=== PATIENT | male | born 1935 | race Caucasian/White ===

== ENCOUNTER 2017-09-04 15:15 | Outpatient (CLI) | payer MEDICARE, OTHER ==
--- NOTE | 2017-09-04 17:42 | ULT ---
EXAM: LEFT LOWER EXTREMITY VENOUS ULTRASOUND WITH DOPPLER 09/04/17 HISTORY: Left calf edema times one week. Patient fell in June with a cut in his leg. COMPARISON: None. TECHNIQUE: Palencia scale, color flow, doppler imaging with spectral waveform was performed of the left lower extre mity venous system. FINDINGS: There is compressibility, presence of flow and augmentation in the common femoral vein, femoral vein , and popliteal vein. Midline of the medial calf there is a complex fluid echotexture which may repr esent a small hematoma or posttraumatic fluid. Additionally, there is evidence of soft tissue edema. IMPRESSION: 1. No evidence of thrombus in the left lower extremity deep venous system. 2. Soft tissue edema. 3. Fluid collection in the medial left calf with septations. Resolving hematoma or complex flui d are differential considerations. POS: [facility]
== END 2017-09-04 15:16 | disposition home or self-care (01) ==
LOC: ULT 15:15
PROVIDERS: ATTEND Internal Medicine Critical Care Medicine
DX: R60.0 Localized edema (principal)

== ENCOUNTER 2018-02-18 08:38 | Outpatient (CLI) | payer MEDICARE ==
[2018-02-18] MEDS ORDERED: ISOVUE-370 76%-LOCM 1 ML ONE (14:08)
== END 2018-02-18 08:39 | disposition home or self-care (01) ==
LOC: BICCT 08:38
PROVIDERS: ATTEND Urology
DX: R31.9 Hematuria, unspecified (principal); N20.0 Calculus of kidney
CPT/HCPCS: 74178

== ENCOUNTER 2019-01-10 13:26 | Emergency (ER) | payer MEDICARE ==
--- NOTE | 2019-01-10 16:02 | ULT ---
LEFT LOWER EXTREMITY VENOUS ULTRASOUND: Date; 01/10/19 COMPARISON: None. HISTORY: Left lower extremity pain and edema with redness. TECHNIQUE: Multiplanar Palencia scale and color Doppler images were obtained in a left lower extremity venous ultras ound. Spectral analysis of the Doppler waveforms were performed. FINDINGS: The left common femoral vein, profunda femoral vein, superficial femoral vein, and popliteal vein are normal in appearance without visible thrombus. These vessels demonstrate normal compression, flow, a nd augmentation. The posterior tibial vein and greater saphenous vein are also patent. IMPRESSION: No evidence of left lower extremity deep venous thrombosis. POS: [facility]
== END 2019-01-10 15:36 | disposition home or self-care (01) ==
LOC: SCSER 13:26
DX: S39.011A Strain of muscle, fascia and tendon of abdomen, initial encounter (principal); K21.9 Gastro-esophageal reflux disease without esophagitis; E03.9 Hypothyroidism, unspecified; E78.5 Hyperlipidemia, unspecified; Z87.891 Personal history of nicotine dependence; Z79.899 Other long term (current) drug therapy; X50.9XXA Other and unspecified overexertion or strenuous movements or postures, initial encounter
CPT/HCPCS: 93005

== ENCOUNTER 2019-02-10 15:03 | Outpatient (CLI) | payer MEDICARE ==
--- NOTE | 2019-02-10 15:28 | RAD ---
XR SCOLIOSIS STUDY: HISTORY: Degenerative scoliosis. COMPARISON: CT of the abdomen and pelvis 02/18/2018. FINDINGS: There is lumbar levoscoliosis measuring 33 degrees from the anterior end plate of L1 to inferior end plate of L5. Asymmetric right worse than left degenerative osteophytes present and disk space narrow ing. Multiple surgical clips present over the midline abdomen. A stimulating device projects over the right hemipelvis. There are dense calcifications projecting over the right hemipelvis. IMPRESSION: Degenerative levoscoliosis lumbar spine approximately 33 degrees. POS: [facility]
== END 2019-02-10 15:04 | disposition home or self-care (01) ==
LOC: BICRAD 15:03
PROVIDERS: ATTEND Anesthesiology Pain Medicine
DX: M41.9 Scoliosis, unspecified (principal); M47.816 Spondylosis without myelopathy or radiculopathy, lumbar region
CPT/HCPCS: 72081

== ENCOUNTER 2019-05-26 11:10 | Inpatient (IN) | payer MEDICARE ==
[2019-05-26] MEDS ORDERED: Acetaminophen 500 MG TAB ONE ×2 (11:41→11:42)
[2019-05-26 12:00] LABS: #Eosinphils 0.1 thou/uL (0.0-0.7); #Lymphocytes 0.9 thou/uL (1.20-3.40); #Monocytes 1.3 thou/uL (0.11-0.59); #Neutrophils 7.9 thou/uL (1.40-6.50); %Basophils 0.4 % (0.0-1.0); %Eosinophils 0.8 % (0.0-10.0); %Lymphocytes 8.6 % (21.0-51.0); %Monocytes 12.5 % (0.0-10.0); %Neutrophils 77.8 % (42.0-75.0); Hemoglobin 15.5 g/dL (14.0-18.0); Mean Corpuscular HGB CONC 30.4 g/dL (32.0-36.0); Mean Corpuscular Hemoglobin 27.4 pg (27.0-31.0); Mean Platelet Volume 7.4 fL (7.4-10.4); Platelet Count 200 thou/uL (130-400); RBC Distribution Width 13.8 % (11.5-14.5); Red Blood Cell (RBC) Count 5.68 mill/uL (4.70-6.10); White Blood Cell (WBC) Count 10.2 thou/uL (4.8-10.8)
--- NOTE | 2019-05-26 12:14 | CT ---
EXAM: Brain CT scan Without contrast: HISTORY: Altered mental status COMPARISON: 03/19/2014 FINDINGS: Marked somewhat asymmetric atrophy and chronic white matter ischemic changes showing some progression when compared to the old study. No focal mass or midline shift. No intra or extra-axial hemorrhage. The visualized sinuses and mastoids are clear of acute process. IMPRESSION: No mass or bleed or other significant acute intracranial process.
--- NOTE | 2019-05-26 12:23 | RAD ---
Chest one view: HISTORY: Fever altered mental status FINDINGS: Marked right hemidiaphragm elevation with overall very poor inspiratory effort. Intimal cardiomegaly. Bilateral vascular congestion, new from 05/24/2016. Left-sided loop recorder. Dorsal column stimulator leads overlie the lower thoracic spine. No new confluent pneumonia. IMPRESSION: Cardiomegaly with bilateral vascular congestion, right hemidiaphragm elevation, and very poor inspira tion. No confluent pneumonia. Marked atherosclerosis with ectasia of the aorta.
[2019-05-26 12:26] LABS: ALT (SGPT) 29 U/L (8-55); AST (SGOT) 35 U/L (5-34); Albumin 4.2 g/dL (3.4-4.8); Alkaline Phosphatase 120 U/L (40-150); Anion Gap 12 mmol/L (10-20); BUN (Urea Nitrogen) 42 mg/dL (8.4-25.7); Calc. Creatinine Clearance 0 mL/min (70-130); Calcium 10.1 mg/dL (7.8-10.44); Carbon Dioxide 34 mmol/L (23-31); Chloride 95 mmol/L (98-107); Estimated GFR-MDRD 34; Globulin 3.2 g/dL (2.4-3.5); Glucose 110 mg/dL (83-110); Potassium 4.6 mmol/L (3.5-5.1); Protein, Total 7.4 g/dL (5.8-8.1); Sodium 136 mmol/L (136-145)
[2019-05-26 12:41] LABS: CKMB 3.2 ng/mL (0-6.6)
[2019-05-26 12:46] LABS: Bilirubin Negative (Negative); Blood, Urine Negative (Negative); Clarity Clear (Clear); Glucose, Urine (Dipstick) Normal (Negative); Leukocyte Negative Leu/uL (Negative); Nitrite Negative (Negative); Protein, Urine (Dipstick) Negative (Neg-Trace); Urobilinogen Normal mg/dL (Less than 2)
[2019-05-26 16:07] LABS: Lactic Acid 1.4 mmol/L (0.5-2.2)
[2019-05-26] MEDS ORDERED: Bisacodyl 5 MG TAB PO PRN (16:17)
[2019-05-26] MEDS ORDERED: Sodium Chloride 0.9% 1,000 ML IV SCH (16:30)
--- NOTE | 2019-05-26 16:48 | HP ---
PRIMARY CARE PROVIDER: Tc Mancini MD CHIEF COMPLAINT: Altered mental status. HISTORY OF PRESENT ILLNESS: Mr. Isabel is a pleasant 83-year-old gentleman, who was seen at [facility] on May 26, 2019. The patient is unable to provide any history. Collateral history was obtained from the patient's by the bedside, review of records, and discussion with emergency room physician. Mr. Isabel has a history of chronic back pain. He is seen by a pain specialist, Dr. Knutson. The patient was undergoing physical therapy this morning when he appeared dizzy, would not talk, and he was shaky and complained of pain all over. He was taken to his primary care provider and his had a difficult time getting him out of the car and into the clinic. She subsequently needed help getting him back into the car. He was brought to the emergency room because of generalized weakness and altered mental status. REVIEW OF SYSTEMS: Could not be completed secondary to the patient's altered mental status. PAST MEDICAL HISTORY: Hiatal hernia; gastroesophageal reflux disease; hypothyroidism; dyslipidemia; prostate cancer, status post radiation therapy and surgery. PAST SURGICAL HISTORY: Back surgery, aorta repair, sinus surgery, cholecystectomy, and prostate surgery. SOCIAL HISTORY: No history of tobacco use, alcohol use, or recreational drug use. FAMILY HISTORY: Family history of premature coronary artery disease. CODE STATUS: I discussed his code status with his . He is full code. ALLERGIES: PENICILLIN, IMIPENEM, CEFEPIME, AND ADHESIVE TAPE. CURRENT MEDICATIONS: 1. Aspirin 81 mg daily. 2. Fioricet as needed. 3. Lipitor 10 mg daily. 4. Celecoxib 200 mg daily. 5. Folic acid 1 mg daily. 6. Furosemide 40 mg 2 times a day. 7. Gabapentin 600 mg 2 times a day. 8. Synthroid 75 mcg daily. 9. Reglan 10 mg daily. 10. Morphine extended release 15 mg 3 times a day. 11. Pantoprazole 40 mg 2 times a day. 12. Potassium chloride 10 mEq 2 times a day. 13. Urocit-K 15 two times a day. 14. Imitrex as needed. PHYSICAL EXAMINATION: GENERAL: On examination, Mr. Isabel is sleepy, but arousable, not in acute distress. VITAL SIGNS: Blood pressure is 138/70, pulse 99, respiratory rate 24, and oxygen saturation 94% on 3 L. Temperature is 100.6 degrees Fahrenheit. T-max in the emergency room was 102.3 degrees Fahrenheit. His pulse was as high as 105 and respiratory rate as high as 28. The patient's room air oxygen saturations were 83%. EYES: No scleral icterus. No conjunctival pallor. ENT: Dry mucosal membranes. No oropharyngeal erythema or exudates. NECK: Supple and nontender. Trachea is midline. RESPIRATORY: Accessory muscles of breathing are not active. Chest wall movements are symmetric bilaterally. Lungs are clear to auscultation without wheeze, rhonchi, or crepitations. CARDIOVASCULAR: S1 and S2 are heard, regular. Peripheral pulses are palpable. No carotid bruit. No pericardial rub. ABDOMEN: Soft and nontender. Bowel sounds heard. No hepatomegaly. No splenomegaly. NEUROLOGIC: Full neurologic examination was not possible secondary to the patient's noncooperation. No facial droop. Pupils are equal and reactive to light. Deep tendon reflexes 2+, plantars downgoing bilaterally. No evidence of meningismus. MUSCULOSKELETAL: The patient is moving all 4 extremities. SKIN: No rashes or subcutaneous nodules. LYMPHATIC: No cervical lymphadenopathy. PSYCHIATRIC: Normal affect. The patient is oriented to person, not to place or time. LABORATORY DATA: Mr. Isabel's labs and investigations were reviewed. I reviewed his electrocardiogram, which shows normal sinus rhythm. I reviewed his chest x-ray, also has a left bundle-branch block, which appears to be chronic. I also reviewed his chest x-ray, which does not show any pulmonary infiltrates. He also had noncontrast CT scan of the brain, which did not show any acute intracranial abnormality. He has normal white count, normal hemoglobin, normal platelet count, elevated neutrophil count of 7900, normal sodium, normal potassium, elevated carbon dioxide of 34, elevated blood urea nitrogen of 42, elevated creatinine of 1.88, last known creatinine was 1.22 in August 2017, unremarkable LFTs, indeterminate troponin-I of 0.049, and mildly elevated BNP of 157.6. Urinalysis is negative. ASSESSMENT AND PLAN: Mr. Isabel is a pleasant 83-year-old gentleman, who was seen at [facility] on May 26, 2019. His problem list includes: 1. Acute metabolic encephalopathy: Mr. Isable is presenting with acute metabolic encephalopathy of unknown etiology, most likely secondary to sepsis. He will be admitted to the hospital for further management. 2. Acute hypoxic respiratory failure: Etiology is unclear. Given his presentation with sepsis, it could be secondary to upper respiratory tract infection. We will start the patient on empiric antibiotics for probable bronchitis. He has been started on vancomycin and levofloxacin, which I will continue. 3. Sepsis: The patient's presentation meets the criteria for sepsis. He will receive gentle intravenous fluids, given his possible congestive heart failure. BNP is low at this time and the patient does not appear to be clinically in volume overload. 4. Hypothyroidism: We will continue thyroid replacement therapy and check TSH level. 5. Dyslipidemia: Continue Lipitor. 6. History of prostate cancer: Appears to be stable, the patient's calcium is normal at this time. Many thanks for allowing me to participate in your patient's care. Please feel free to contact me with any questions or concerns. LEVEL OF RISK: High. LEVEL OF COMPLEXITY: High. Job ID: [id number]
[2019-05-26 18:53] VITALS: BMI 28.8
[2019-05-26] MEDS: Heparin 5,000 UNITS/ML VIAL SC SCH (20:47)
[2019-05-26] MEDS ORDERED: Acetaminophen 650 MG Suppository PR PRN (23:53)
[2019-05-27 05:58] LABS: #Lymphocytes 1.2 thou/uL (1.20-3.40); #Monocytes 1.4 thou/uL (0.11-0.59); #Neutrophils 9.3 thou/uL (1.40-6.50); %Basophils 0.1 % (0.0-1.0); %Eosinophils 0.2 % (0.0-10.0); %Monocytes 11.4 % (0.0-10.0); %Neutrophils 78.3 % (42.0-75.0); Mean Corpuscular HGB CONC 31.7 g/dL (32.0-36.0); Mean Corpuscular Hemoglobin 28.7 pg (27.0-31.0); Mean Corpuscular Volume 90.5 fL (78.0-98.0); Mean Platelet Volume 7.7 fL (7.4-10.4); Platelet Count 161 thou/uL (130-400); RBC Distribution Width 13.9 % (11.5-14.5); Red Blood Cell (RBC) Count 4.89 mill/uL (4.70-6.10); White Blood Cell (WBC) Count 11.9 thou/uL (4.8-10.8)
[2019-05-27 06:23] LABS: Anion Gap 13 mmol/L (10-20); BUN (Urea Nitrogen) 41 mg/dL (8.4-25.7); Calc. Creatinine Clearance 33 mL/min (70-130); Calcium 9.5 mg/dL (7.8-10.44); Carbon Dioxide 29 mmol/L (23-31); Chloride 99 mmol/L (98-107); Estimated GFR-MDRD 32; Glucose 106 mg/dL (83-110); Potassium 4.3 mmol/L (3.5-5.1); Sodium 137 mmol/L (136-145)
[2019-05-27] MEDS ORDERED: SUMAtriptan Succinate 50 MG TAB PO PRN (08:27)
[2019-05-27] MEDS ORDERED: Propranolol 10 MG TAB PO PRN (08:27)
[2019-05-27] MEDS: Folic Acid 1 MG TAB PO SCH (09:23)
[2019-05-27] MEDS: Metoclopramide HCl 10 MG TAB PO SCH (09:23)
[2019-05-27] MEDS ORDERED: SUMATRIPTAN 5 MG FS PRN (11:15)
[2019-05-27] MEDS: Heparin 5,000 UNITS/ML VIAL SC SCH ×3 (12:13→20:31)
[2019-05-27] MEDS ORDERED: Vancomycin HCl 1 GM in Premix Bag 1 BAG IVPB SCH (13:00)
--- NOTE | 2019-05-27 14:45 | ULT ---
BILATERAL LOWER EXTREMITY VENOUS DUPLEX EXAM: Date: 05/27/19 Veins of both lower extremities evaluated with color Doppler, spectral analysis, and compression. INDICATION: Bilateral lower extremity pain and edema. FINDINGS: Deep veins evaluated include common femoral, femoral vein, and popliteal vein bilaterally. The common femoral and femoral veins show normal flow and compression bilaterally. There is a linear echogenici ty seen in both femoral veins which suggests a linear thrombus, possibly fibrous changes from prior d eep venous thrombosis. Both femoral veins show normal compression with no evidence of acute thromboph lebitis. There is thrombus and loss of compression in the left popliteal indicating acute deep venous thrombos is at this location. The right popliteal shows normal flow and compression. IMPRESSION: 1. Evidence of acute deep venous thrombosis involving the left popliteal vein. 2. Linear echogenicity seen in both femoral veins suggesting linear thrombus, possibly chronic from old deep venous thrombosis. The femoral veins show normal flow and compression. Nurse notified by technologist. Instructed to call Dr. Dunham POS: [facility]
--- NOTE | 2019-05-27 14:50 | CON ---
DATE OF CONSULTATION: 05/27/2019 REASON FOR CONSULTATION: Possible sepsis. 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 Denis. He has been fairly well since in the intervening period, except for a couple episodes of pneumonia and he was getting physical therapy and over the past few days before admission, he noticed some increased urinary frequency and a sensation of dribbling more often than usual, although he did not have dysuria. He has his usual lower back pain, which he manages with oral morphine sulfate prescribed by Dr. Knutson. On the day of admission, he became altered and the had to bring him to the doctor and eventually admitted. The initial findings included a BP 170/90, pulse 98, respirations 28, temperature 102.3, and O2 saturation 83. The exam showed lethargy. He was a bit more alert and was slow to answer questions. The remainder of the examination was not particularly remarkable. They did an in and out catheterization to obtain urine for testing. Initial lab results; white cell count 10.2, hemoglobin 15, platelets 200, and 77% neutrophils. Sodium 136 and creatinine 1.88 with a baseline of 1.22 in 2017. He has been given levofloxacin and vancomycin. He is currently awake. He is back to his normal mental state. He is still having pain all over as he described because he is not getting his morphine reportedly. No headaches. No visual symptoms, sore throat, odynophagia, or dysphagia. No nasal symptoms or ear pain. No neck pain. A little bit of cough , but no dyspnea. No abdominal pain except for the suprapubic area, there is tender as noted in the physical exam. No joint symptoms. 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 He also has a history of cholecystectomy. SOCIAL HISTORY: Never smoker. Retired. Lives in [place]. No alcoholic beverage use. FAMILY HISTORY: Coronary artery disease. ALLERGIES: PENICILLIN, PRIMAXIN, AND CEFEPIME. CURRENT MEDICATIONS: 1. Tylenol. 2. Ecotrin. 3. Dulcolax. 4. Heparin. 5. The antibiotics mentioned above. 6. Inderal p.r.n. 7. Sumatriptan p.r.n. PHYSICAL EXAMINATION: VITAL SIGNS: T-max 101.9 on May 26. He has been afebrile since. BP 140/71, pulse 72, respirations 20, and O2 saturation 92. SKIN: Peripheral IV access. He does not have a Rodriguez catheter. No lymphadenopathy. HEENT: Ocular movements conjugate. Mild conjunctival hyperemia. Pupils are equal and reactive. Oral cavity with still quite a few teeth in place, but no other lesions noted. NECK: Supple. No jugular vein distention. No carotid bruits. No thyromegaly. LUNGS: Symmetric clear breath sounds. HEART: S1 and S2. Regular rate. Diminished heart sounds. No obvious murmurs. ABDOMEN: Soft with tenderness in suprapubic area. No masses. No ascites. EXTREMITIES: No joint inflammatory activity. No edema. Pulses are 1+ in dorsalis pedis. He moves extremities equally. His plantar responses are flexor. No clonus. NEUROLOGIC: He is awake and oriented. Follows commands. Recognize his . Recall is fairly decent. Speech appears normal. LABORATORY DATA: Latest values of labs are white cell count of 11.9, hemoglobin 14, platelets 161, and 78% neutrophils. Creatinine up to 2.01. Microbiology with no growth and urine culture 24 hours. Two sets of blood cultures, no growth to- date. Influenza A and B negative. Urinalysis with essentially normal results. IMAGING: Include a brain CT with no mass or bleed. ASSESSMENT AND PLAN: Altered mental status with neutrophilia and fever without obvious source at this time except for the tenderness in the suprapubic area. We will order a CT of the abdomen and pelvis with contrast whenever his GFR improves. We will check his bladder ultrasound for now postvoid and also, we will check an abdominal CT stone protocol for now in view of the hx of nephrolithiasis. Continue current antimicrobials. Job ID: [id number] [facility]
--- NOTE | 2019-05-27 15:01 | PDOC.HOSPP ---
- Subjective Subjective: Pt seen for followup re: acute metabolic encephalopathy. Did not sleep well, had fevers overnight. - Objective Vital Signs & Weight: Vital Signs (12 hours) Temp Pulse Resp BP BP Pulse Ox 05/27/19 11:00 97.6 F 72 20 145/71 H 92 L 05/27/19 08:00 93 L 05/27/19 07:59 98.1 F 70 18 112/60 95 05/27/19 05:33 98.4 F 75 18 99/62 91 L 05/27/19 04:46 98.4 F 69 16 102/64 97 Weight Weight 189 lb 6 oz I&O: 05/26/19 05/27/19 05/28/19 06:59 06:59 06:59 Intake Total 450 Output Total 350 Balance 100 Result Diagrams: 05/27/19 05:11 05/27/19 05:11 Additional Labs: Labs and MARs reviewed by me ROS - Review of Systems All systems: All other ROS were reviewed and found negative. Constitutional: reports: fever, weakness. denies: chills, sweats, malaise Respiratory: denies: cough, dry, shortness of breath, hemoptysis, SOB with excertion, pleuritic pain, sputum, wheezing Cardiovascular: denies: chest pain, palpitations, orthopnea, paroxysmal noc. dyspnea, edema, light headedness Gastrointestinal: denies: nausea, vomitting, abdominal pain, diarrhea, constipation, melena, hematochezia Genitourinary: denies: dysuria, frequency, incontinence, hematuria, retention - Medication Medications: Active Medications Generic Name Dose Route Start Last Admin Trade Name Mukund PRN Reason Stop Dose Admin Acetaminophen 650 mg 05/26/19 23:53 05/27/19 00:00 Tylenol HI 650 mg Q4H PRN Administration .FEVER Albuterol/Ipratropium 3 ml 05/26/19 22:39 05/26/19 22:54 Duoneb NEB 3 ml [id number] PRN Administration SOB &/or Wheezing Folic Acid 1 mg 05/27/19 09:00 05/27/19 09:23 Folvite PO 1 mg DAILY JANICE Administration Heparin Sodium (Porcine) 5,000 units 05/26/19 21:00 05/27/19 12:13 Heparin SC 5,000 units TID JANICE Administration Vancomycin HCl 1 gm/ Device 200 mls @ 200 mls/hr 05/27/19 13:00 05/27/19 12: 14 IVPB 200 mls 1300 JANICE Administration Metoclopramide HCl 10 mg 05/27/19 09:00 05/27/19 09:23 Reglan PO 10 mg DAILY JANICE Administration Pantoprazole Sodium 40 mg 05/27/19 09:00 05/27/19 09:23 Protonix PO 40 mg BID JANICE Administration - Exam NAD Eye: PERRL ENT: normocephalic atraumatic Neck: supple, symmetric, no JVD, no Thyromegaly Heart: RRR, no gallops, no rubs Respiratory: CTAB, no wheezes, no rales, no ronchi Gastrointestinal: soft, non-tender, non-distended, normal bowel sounds Extremities: 2+ LE edema Psychiatric: normal affect, normal behavior Hosp A/P (1) Acute metabolic encephalopathy Code(s): G93.41 - METABOLIC ENCEPHALOPATHY Status: Acute (2) Severe sepsis Code(s): A41.9 - SEPSIS, UNSPECIFIED ORGANISM; R65.20 - SEVERE SEPSIS WITHOUT SEPTIC SHOCK Status: Acute (3) Bacteremia Code(s): R78.81 - BACTEREMIA Status: Acute (4) DVT (deep venous thrombosis) Code(s): I82.409 - ACUTE EMBOLISM AND THOMBOS UNSP DEEP VN UNSP LOWER EXTREMITY Status: Acute (5) Acute worsening of stage 3 chronic kidney disease Code(s): N18.3 - CHRONIC KIDNEY DISEASE, STAGE 3 (MODERATE) Status: Acute - Plan Altered mental status imp[roving. Severe sepsis with worsening of renal function, most likely secondary to bacteremia, present on admission. Pt has DVT, will need heparin drip. looking into warfarin vs NOACs. Risks vs benefits of all forms of anticoagulation explained. Pt had CT renal stone protocol done, result pending.
[2019-05-27] MEDS: Acetaminophen 325 MG TAB PO PRN ×2 (16:11→20:30)
--- NOTE | 2019-05-27 16:33 | CT ---
CT ABDOMEN AND PELVIS: Oral contrast not administered. INDICATION: Abdominal pain and fever. History of nephrolithiasis. COMPARISON: Comparison is made to CT abdomen and pelvis 05/12/2016 and 01/27/2014. FINDINGS: Patchy atelectasis or infiltrate in the posterior right lung base is noted. Liver and spleen unremarkable. There continues to be colon interposed under the right hemidiaphragm pushing on the anterior liver. This is a stable finding. Pancreas unremarkable. Stomach and duoden um unremarkable. Adrenal glands normal. There are 2 irregularly shaped calcifications at the left UPJ producing moderate left hydronephrosis. The larger of these measures 1.3 cm in the coronal plane and the other measures 1.0 cm in the coron al plane. There are other tiny nonobstructing calculi in the upper collecting structures of the left kidney. No right renal calculus identified. Urinary bladder is mildly distended and unremarkable. Small bowel loops show nonspecific distention proximally. Stool is seen throughout the colon with sc attered diverticula and diverticulosis of the sigmoid. The aorta is densely calcified with evidence of prior aortic surgical repair with numerous surgical c lips. These are stable. There is a linear density in the retroperitoneum extending from the right lateral aspects of the aort a into the right retroperitoneum with stippled calcifications. This has been previously described as a chronic residual retroperitoneal hematoma. It is stable in appearance. Degenerative changes in the lumbar spine with scoliotic curvature. Focal bone island in the right il eum is stable in appearance. IMPRESSION: 1. Two large calculi are present at the left ureteropelvic junction producing moderate left hydronep hrosis. 2. Tiny nonobstructing calculus in the upper collecting structures of the left kidney. Left renal c ystic lesions appear stable. 3. Patchy atelectasis or infiltrate in the posterior right lung base. 4. Other findings appear stable including a chronic right retroperitoneal hematoma with stippled perico cifications. POS: [facility]
[2019-05-27] MEDS: Atorvastatin Calcium 10 MG TAB PO SCH (20:30)
[2019-05-27] MEDS: Multivitamin W/ Minerals 1 TAB PO SCH (20:30)
[2019-05-27] MEDS: Stress 600 With Zinc 1 TAB PO SCH (20:31)
[2019-05-27] MEDS: Aspirin 81 mg Enteric Coated Tablet PO SCH ×2 (20:31→21:46)
[2019-05-28] MEDS: Levothyroxine Sodium 75 MCG TAB PO SCH (05:41)
[2019-05-28] MEDS: Acetaminophen 325 MG TAB PO PRN ×4 (05:50→20:19)
[2019-05-28 06:17] LABS: #Eosinphils 0.1 thou/uL (0.0-0.7); #Monocytes 1.3 thou/uL (0.11-0.59); #Neutrophils 7.6 thou/uL (1.40-6.50); %Eosinophils 0.6 % (0.0-10.0); %Lymphocytes 9.6 % (21.0-51.0); %Monocytes 12.8 % (0.0-10.0); Hemoglobin 14.2 g/dL (14.0-18.0); Mean Corpuscular HGB CONC 31.8 g/dL (32.0-36.0); Mean Corpuscular Hemoglobin 28.8 pg (27.0-31.0); Mean Corpuscular Volume 90.7 fL (78.0-98.0); Mean Platelet Volume 7.8 fL (7.4-10.4); Platelet Count 145 thou/uL (130-400); RBC Distribution Width 13.8 % (11.5-14.5); Red Blood Cell (RBC) Count 4.91 mill/uL (4.70-6.10); White Blood Cell (WBC) Count 9.9 thou/uL (4.8-10.8)
[2019-05-28 06:44] LABS: Anion Gap 13 mmol/L (10-20); BUN (Urea Nitrogen) 36 mg/dL (8.4-25.7); Calc. Creatinine Clearance 32 mL/min (70-130); Calcium 9.7 mg/dL (7.8-10.44); Carbon Dioxide 29 mmol/L (23-31); Chloride 100 mmol/L (98-107); Estimated GFR-MDRD 31; Glucose 109 mg/dL (83-110); Potassium 4.4 mmol/L (3.5-5.1); Sodium 138 mmol/L (136-145)
[2019-05-28] MEDS: Folic Acid 1 MG TAB PO SCH (08:39)
[2019-05-28] MEDS: Metoclopramide HCl 10 MG TAB PO SCH (08:40)
[2019-05-28 12:44] LABS: Vancomycin, Trough 12.5 ug/mL
--- NOTE | 2019-05-28 13:03 | CON ---
DATE OF CONSULTATION: HISTORY OF PRESENT ILLNESS: Jeffrey Isabel is an 83-year-old very pleasant gentleman, who has been in the hospital since the , consulted today. Pulmonary is unclear why, but he does have evidence of DVT. He sees Dr. Castrejon in the office twice a year. Extensive history outlined in the note. He apparently was having some kind of back issues and presented to the ER after his family doctor told him to come to the ER ongoing evaluation. Chest x-ray shows cardiomegaly with the elevated hemidiaphragm. Temperature was 102.3 in the ER, respiratory rate 20 and labored, blood pressure 173/97, sats 83% on room air. Initially, his right hemidiaphragm was elevated. He did have chills and sweats. Infectious Disease was consulted. CT of abdomen was performed yesterday, which shows previous diagnosis of nephrolithiasis. Ultrasound of both legs revealed DVT. On arrival in the room, he denies any pain, discomfort, or shortness of breath. PAST MEDICAL HISTORY: Pertinent for hypothyroidism, hyperlipidemia, prostate cancer status post radiation, prolonged hospitalization following an aortic injury following a lumbar laminectomy requiring emergent repair, ARDS, renal failure, prolonged hospitalization including tracheostomy. This was in 2013. SOCIAL HISTORY: No alcohol or tobacco abuse. HOME MEDICATIONS: Include: 1. Inderal 10. 2. Folic acid. 3. Celebrex. 4. Lipitor. 5. Cymbalta 60. 6. Gabapentin 600 three times a day. 7. Lasix 40 b.i.d. 8. Synthroid 75. 9. Protonix 40. 10. Reglan. 11. Morphine 15 p.r.n. 12. Nasal spray. Since admission, he is on neb treatments p.r.n. He is on Levaquin and vancomycin as per Infectious Disease. ALLERGIES: MAXIPIME, PENICILLIN, AND IMIPENEM. PHYSICAL EXAMINATION: GENERAL: He appears to be in no acute distress. VITAL SIGNS: His sats are 94% on 2 L, temperature 98, pulse 94, and blood pressure 154/79. CHEST: Decreased breath sounds. No wheezing. CARDIAC: Normal S1 and S2. No gallops. ABDOMEN: No mass. LABORATORY DATA: Creatinine 2.6. White count 9000. Cultures so far, Staph is being grown. IMPRESSION: Staphylococcus sepsis, congestive heart failure possibly superimposed pneumonia, chronic elevated right hemidiaphragm, previous tracheostomy, previous acute respiratory distress syndrome. Two large calculi in the left ureteropelvic junction, moderate hydronephrosis. Renal failure. He appears relatively comfortable on present medication. Nothing additional to offer at this time. Apparently, he was not started on anticoagulation. It is unclear why CV surgery was consulted regarding a filter. Consultation note, 70 minutes, 50% direct patient care. Job ID: [id number]
[2019-05-28] MEDS: Vancomycin HCl 1.25 GM in Sodium Chloride 0.9% 250 ML 250 ML IVPB SCH (15:21)
[2019-05-28] MEDS: Morphine ER 15 MG TAB PO PRN (18:23)
--- NOTE | 2019-05-28 18:56 | PDOC.HOSPP ---
- Subjective Encounter Date: 05/28/19 Encounter Time: 08:40 Subjective: Pt seen for followup re: acute metabolic encephalopathy. Feels better. c/o RLQ pain. No fevers or chills. - Objective Vital Signs & Weight: Vital Signs (12 hours) Temp Pulse Resp BP Pulse Ox 05/28/19 15:06 98.1 F 102 H 19 157/89 H 96 05/28/19 11:20 98.1 F 94 19 154/79 H 94 L 05/28/19 08:35 97 05/28/19 07:01 98.1 F 87 17 153/76 H 92 L Weight Weight 189 lb 6 oz I&O: 05/27/19 05/28/19 05/29/19 06:59 06:59 06:59 Intake Total 450 1640 Output Total 350 Balance 100 1640 Result Diagrams: 05/28/19 05:27 05/28/19 05:27 Additional Labs: labs and MARs reviewed by me ROS - Review of Systems Cardiovascular: denies: chest pain, palpitations, orthopnea, paroxysmal noc. dyspnea, edema, light headedness Gastrointestinal: reports: abdominal pain. denies: nausea, vomitting, diarrhea , constipation, melena, hematochezia - Medication Medications: Active Medications Generic Name Dose Route Start Last Admin Trade Name Freq PRN Reason Stop Dose Admin Acetaminophen 650 mg 05/26/19 16:17 05/28/19 15:28 Tylenol PO 650 mg Q4H PRN Administration Headache/Fever/Mild Pain (1-3) Acetaminophen 650 mg 05/26/19 23:53 05/27/19 00:00 Tylenol NE 650 mg Q4H PRN Administration .FEVER Albuterol/Ipratropium 3 ml 05/26/19 22:39 05/26/19 22:54 Duoneb NEB 3 ml [id number] PRN Administration SOB &/or Wheezing Aspirin 81 mg 05/27/19 21:00 05/27/19 21:46 Ecotrin PO 81 mg HS JANICE Administration Atorvastatin Calcium 10 mg 05/27/19 21:00 05/27/19 20:30 Lipitor PO 10 mg HS JANICE Administration Folic Acid 1 mg 05/27/19 09:00 05/28/19 08:39 Folvite PO 1 mg DAILY JANICE Administration Levofloxacin 750 mg/ Device 150 mls @ 100 mls/hr 05/27/19 14:00 05/28/19 13: 46 IVPB 150 mls 1400 JANICE Administration Vancomycin HCl 1.25 gm/ Sodium 250 mls @ 166.667 mls/hr 05/28/19 13:00 15:21 Chloride IVPB 250 mls 1300 JANICE Administration Iron/Minerals/Multivitamins 1 tab 05/27/19 21:00 05/27/19 20:30 Theragran M PO 1 tab HS JANICE Administration Levothyroxine Sodium 75 mcg 05/28/19 06:00 05/28/19 05:41 Synthroid PO 75 mcg 0600 JANICE Administration Metoclopramide HCl 10 mg 05/27/19 09:00 05/28/19 08:40 Reglan PO 10 mg DAILY JANICE Administration Morphine Sulfate 15 mg 05/28/19 17:04 05/28/19 18:23 Ms Contin PO 15 mg Q8H PRN Administration Pain Multivitamins/Zinc 1 tab 05/27/19 21:00 05/27/19 20:31 Stress 600 With Zinc PO 1 tab HS JANICE Administration Pantoprazole Sodium 40 mg 05/27/19 09:00 05/28/19 08:40 Protonix PO 40 mg BID JANICE Administration - Exam NAD Eye: anicteric sclera ENT: normocephalic atraumatic Neck: supple Heart: RRR Respiratory: CTAB Gastrointestinal: soft Skin: normal turgor Musculoskeletal: normal tone Psychiatric: normal affect, normal behavior Hosp A/P (1) Acute metabolic encephalopathy Code(s): G93.41 - METABOLIC ENCEPHALOPATHY Status: Acute (2) Bacteremia Code(s): R78.81 - BACTEREMIA Status: Acute (3) DVT (deep venous thrombosis) Code(s): I82.409 - ACUTE EMBOLISM AND THOMBOS UNSP DEEP VN UNSP LOWER EXTREMITY Status: Acute (4) Acute worsening of stage 3 chronic kidney disease Code(s): N18.3 - CHRONIC KIDNEY DISEASE, STAGE 3 (MODERATE) Status: Acute (5) Severe sepsis Code(s): A41.9 - SEPSIS, UNSPECIFIED ORGANISM; R65.20 - SEVERE SEPSIS WITHOUT SEPTIC SHOCK Status: Resolved - Plan continue antibiotics, PT/OT, out of bed/ambulate Continue IV levofloxacin and vancomycin. 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 H/ o aortic trauma. Consult CV surgery, pt may need IVC filter and may not be a good candidate for anticoagulation. Urology consulted re: nephrolithiasis and hydronephrosis.
[2019-05-28] MEDS: Aspirin 81 mg Enteric Coated Tablet PO SCH (20:20)
[2019-05-28] MEDS: Atorvastatin Calcium 10 MG TAB PO SCH (20:20)
[2019-05-28] MEDS: Multivitamin W/ Minerals 1 TAB PO SCH (20:20)
[2019-05-28] MEDS: Enoxaparin Sodium 80 MG/0.8 ML SYRINGE SC SCH (20:20)
[2019-05-28] MEDS: Stress 600 With Zinc 1 TAB PO SCH (20:20)
[2019-05-28] MEDS: Gabapentin 300 MG CAP PO SCH (20:20)
--- NOTE | 2019-05-28 22:18 | CON ---
DATE OF CONSULTATION: 05/28/2019 REQUESTING PHYSICIAN: Dr. Borges. CHIEF COMPLAINT: Weakness and altered mental status. HISTORY OF PRESENT ILLNESS: The patient is an 83-year-old man with extensive back problems, who 15 years ago underwent emergent patch repair of an iatrogenic aortic injury that he sustained during procedure to address his back. He became dizzy and complained of pain all over while in physical therapy. He was profoundly weak and had difficulty getting out of the car when he went to see his primary care physician, and his weakness and obtunded mental status were sufficient to prompt sending him to the emergency room. He has since improved on empiric antibiotics. CT scanning that was apparently done as part of evaluating for a potential source of sepsis showed what he has previously been interpreted on CT scans going back at least to 2013 is residual retroperitoneal hematoma, that now is involved with stippled calcifications. The perception that he had some lower extremity edema prompted ultrasonography of his legs demonstrating a left popliteal DVT, and I was consulted to address the appropriateness of vena cava filter placement in lieu of anticoagulation, given the CT findings of an old retroperitoneal hematoma. PAST MEDICAL HISTORY: Significant for; 1. GE reflux disease. 2. Prostate cancer. 3. He has extensive back problems. HOME MEDICATIONS: 1. Inderal. 2. Celebrex. 3. Lipitor. 4. Baby aspirin. 5. Frova. 6. Cymbalta. 7. Neurontin. 8. Lasix. 9. Synthroid. 10. Protonix. 11. Oral morphine. 12. Reglan. 13. Potassium. 14. Imitrex. ALLERGIES: HE HAS MULTIPLE ALLERGIES. PHYSICAL EXAMINATION: GENERAL: He is an elderly man, in no distress. VITAL SIGNS: Heart rate is 102; blood pressure is 157/89; temperature is currently 98.1, T-max on the montano been 101.9. In the emergency room, it was 102.3. He appears comfortable. EXTREMITIES: He has venous stasis pigmentation changes in both lower extremities, more pronounced on the right than on the left. He has some very minimal tenderness in his posterior left upper calf, but he does not have any overt edema in either side. DIAGNOSTIC DATA: His radiographic findings are as described above. IMPRESSION AND RECOMMENDATIONS: The calcified remnants of what presumably is retroperitoneal hemorrhage from his long distant aortic injury should not represent any contraindication to anticoagulation for his DVT and I do not think that it is necessary to place a vena cava filter. Job ID: [id number]
--- NOTE | 2019-05-28 22:48 | CON ---
DATE OF CONSULTATION: 05/28/2019 PRIMARY CARE PHYSICIAN: Tc Mancini MD PRIMARY UROLOGIST: Nikolai Wood MD CHIEF COMPLAINT: 1. Left UPJ stones x2. 2. Left lower pole complex cyst. PROBLEM LIST Staphylococcal sepsis (HCC), A41.2 Obstruction of left ureteropelvic junction (UPJ) due to stone, N20.1 Prostate cancer (HCC), C61 Testalgia, N50.819 Chronic midline low back pain with bilateral sciatica, M54.41, M54.42, G89.29 HISTORY OF PRESENT ILLNESS: Mr. 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 He has had about 15 kidney stone events in his life counting the current one. He apparently had left lower pole calculi for quite a while, having undergone a previous CT scan on 01/22/2018, demonstrating the stones. The patient apparently has had recent progression of stones into the UPJ area. He presented on this hospital admission with altered mental status after having been found down. He was not able to walk and do other activities, felt very ill, and was brought to the emergency room for evaluation. The patient on admission had a left shift with elevated ANC, but a white blood cell count of only 10,200. He did briefly have an elevated white count on 05/27/2019 , only 11,900. His admission chemistries and progressive chemistries have shown a blood urea nitrogen of 42, creatinine of 1.88 at admission, improvement of the creatinine to 36 today with the creatinine at 2.06. The patient did have an elevated BNP, minimally elevated at 157 at admission. The patient's primary pain complaints are left-sided. Reports some back pain, which is chronic related to chronic lower back discomfort and reports some radiation into the left groin area. The patient does notice some pain in his left testicle, which is apparently benign otherwise. PAST MEDICAL HISTORY: 1. Recurrent nephrolithiasis. 2. Chronic back difficulties, status post apparent laminectomy and injury to his aorta with a subsequent aortic repair having been performed from the anterior aspect of his abdomen. 3. Multiple previous lithotripsies. 4. Hiatal hernia. 5. Gastroesophageal reflux disease. 6. Hypothyroidism. 7. Dyslipidemia. 8. Prostate cancer, status post radiation therapy, apparent previous prostate surgery, possibly a TURP in the past. SOCIAL HISTORY: The patient is a former cigarette smoker. He quit about 50 years ago with a total of about 15 years of cigarette smoking, one pack per day or less. He has never consumed alcohol. 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 FAMILY MEDICAL HISTORY: Positive for coronary artery disease, unclear if there is a family history of prostate cancer. ALLERGIES: PENICILLIN, IMIPENEM, CEFEPIME, AND ADHESIVE TAPE. MEDICATIONS: Complete outpatient medication list includes the followin. Aspirin 81 mg p.o. daily. 2. Fioricet as needed. 3. Lipitor 10 mg p.o. daily. 4. Celebrex 200 mg daily. 5. Folic acid 1 mg per day. 6. Furosemide 40 mg twice daily. 7. Gabapentin 600 mg twice daily. 8. Synthroid 75 mcg p.o. daily. 9. Reglan 10 mg p.o. daily. 10. Morphine sulfate extended release 15 mg 3 or 4 times per day. 11. Pantoprazole 40 mg twice daily. 12. Potassium chloride 10 mEq twice daily. 13. Urocit-K 15 mEq twice daily. 14. Imitrex as needed for headache. PHYSICAL EXAMINATION: GENERAL: This is an awake, alert, white male, in no apparent distress. He is a good historian. HEAD, EYES, EARS, NOSE, AND THROAT: Extraocular movements are intact. Sclerae are anicteric. Oropharynx is clear. NECK: Supple. LUNGS: Clear to auscultation bilaterally. CARDIAC: Regular rate and rhythm. There is no evidence of previous sternotomy or pacemaker implantation. LUNGS: Clear without any noted abnormalities. ABDOMEN: Soft, obese, nontender. There is midline surgical incisional scar compatible with the patient's aortic replacement operation. There is a ventral hernia associated with multiple locations above and below the umbilicus. The patient has no evidence of inguinal canal hernia on either side. GENITOURINARY: Phallus is circumcised and is without lesion. There is no indwelling catheter. Testes grossly are benign. There is no tenderness to the testes on either side, although the patient reports radiation of pain symptoms into the left testis. BACK: There is a small scar in the lumbar area. The patient's back is associated with previous back surgery. GENITOURINARY: Digital rectal examination is performed. The patient has relative lax muscle tone. The remaining prostate tissue is minimal. I do not appreciate any large masses. There is no overt tenderness. There is no stool in the rectal vault. EXTREMITIES: Appear within normal limits. There are no scars on the knees or the legs. There is no significant edema in the lower extremities. RADIOLOGIC STUDIES: A CT scan of the abdomen and pelvis was performed just after admission on 05/27/2019. This does demonstrate the presence of minimal stranding about the patient's left kidney. Left kidney appears to be larger than the right. There are multiple cysts, some of which appear to possibly have solid components to it. There is one mid kidney above the blood vessel level, which could be a hyperdense cyst, or possibly a true lesion. The lower pole area on the left side posteriorly has a protruding large cyst, which possibly is heterogeneous, lack of contrast limits the evaluation. This could be evaluated by ultrasound if necessary. In the patient's left ureteropelvic junction area, there were 2 stones proximal as there is relative dilation of the renal pelvis. There appears to be urine about the stones suggesting these are not actually obstructing at the present time. One stone measures almost 9 mm and other stone measures about 6 mm. Distal to this, there are no significant stones. The patient's right side appears relatively benign. The patient's CT scan shows some relative thinness of the fascia, but no true hernia inferiorly suggesting the patient simply has diastasis recti of the anterior abdomen. The patient's bladder is relatively thin walled with no obvious defects. There is some apparent remaining prostate tissue after the patient's history of radiation of the prostate and some type of prostate operation, presumably a transurethral resection. LABORATORY STUDIES: Microbiology, the patient had Staphylococcus species isolated from his right arm and the left hand had coag-negative Staphylococcus isolated on 05/26/2019. Urine culture was negative for growth on 05/26/2019. Other laboratory study showed the patient is with a degree of renal insufficiency with a creatinine of 1.88 on admission. Blood urea nitrogen of 42 with minimal improvement during hospitalization. The patient's baseline serum chemistries show previous creatinine, which was recently in 2017 in the range of 1.22, indicating about an 80% increase in creatinine over that time. The patient's blood urea nitrogen was not assessed on previous admissions. ASSESSMENT AND PLAN: 1. Microbiology. The patient has apparent Staphylococcus sepsis from unknown origin. I rather doubt that this is a urinary origin given negative urine culture and apparent obstruction, rather is the patient's kidney stones are probably incidental finding. Potential sources for the infection will be previous operative sites in communication with skin. Also, the patient has apparent aortic repair. 2. Left ureteropelvic junction stones. The patient does give some symptoms suggesting that his symptoms are related to the kidney stones, which include radiation to the left testicle area. This apparently has been a problem for him in the past as far as pain radiation. 3. My clinical examination of the patient did not find any actual acute problems with his left testicle. Over 70 minutes of initial evaluation and assessment time was spent in the care of this patient, over of which was in face to face evaluation or in coordination of care, or in communication with the patient's family regarding care, exclusive of any procedures performed, [id number]. Job ID: [id number] MTDD
[2019-05-29] MEDS: Morphine ER 15 MG TAB PO PRN ×2 (03:26→12:49)
[2019-05-29] MEDS: Acetaminophen 325 MG TAB PO PRN ×3 (06:04→19:48)
[2019-05-29] MEDS: Levothyroxine Sodium 75 MCG TAB PO SCH (06:04)
[2019-05-29 06:06] LABS: #Lymphocytes 0.8 thou/uL (1.20-3.40); #Monocytes 1.5 thou/uL (0.11-0.59); #Neutrophils 7.6 thou/uL (1.40-6.50); %Basophils 0.1 % (0.0-1.0); %Eosinophils 0.5 % (0.0-10.0); %Monocytes 14.7 % (0.0-10.0); %Neutrophils 76.7 % (42.0-75.0); Hemoglobin 14.5 g/dL (14.0-18.0); Mean Corpuscular Hemoglobin 29.2 pg (27.0-31.0); Mean Corpuscular Volume 88.7 fL (78.0-98.0); Mean Platelet Volume 8.1 fL (7.4-10.4); Platelet Count 174 thou/uL (130-400); RBC Distribution Width 13.8 % (11.5-14.5); Red Blood Cell (RBC) Count 4.97 mill/uL (4.70-6.10); White Blood Cell (WBC) Count 9.9 thou/uL (4.8-10.8)
[2019-05-29 06:23] LABS: Anion Gap 14 mmol/L (10-20); BUN (Urea Nitrogen) 29 mg/dL (8.4-25.7); Calc. Creatinine Clearance 36 mL/min (70-130); Calcium 9.9 mg/dL (7.8-10.44); Carbon Dioxide 25 mmol/L (23-31); Chloride 103 mmol/L (98-107); Estimated GFR-MDRD 35; Glucose 95 mg/dL (83-110); Potassium 4.8 mmol/L (3.5-5.1); Sodium 137 mmol/L (136-145)
[2019-05-29] MEDS: DULoxetine 60 MG CAP PO SCH (08:22)
[2019-05-29] MEDS: Folic Acid 1 MG TAB PO SCH (08:23)
[2019-05-29] MEDS: Enoxaparin Sodium 80 MG/0.8 ML SYRINGE SC SCH (08:23)
[2019-05-29] MEDS: Metoclopramide HCl 10 MG TAB PO SCH (08:23)
[2019-05-29] MEDS: Gabapentin 300 MG CAP PO SCH ×3 (08:23→19:48)
--- NOTE | 2019-05-29 11:24 | PDOC.HOSPP ---
- Subjective Encounter Date: 05/29/19 Encounter Time: 08:00 Subjective: Pt seen for followup re: DVT. Denies chest pain. - Objective Vital Signs & Weight: Vital Signs (12 hours) Temp Pulse Resp BP Pulse Ox 05/29/19 11:00 98.1 F 80 17 161/82 H 96 05/29/19 07:00 98.7 F 77 17 137/75 94 L 05/29/19 03:41 98.6 F 91 20 169/92 H 96 05/29/19 00:33 80 Weight Weight 189 lb 6 oz I&O: 05/28/19 05/29/19 05/30/19 06:59 06:59 06:59 Intake Total 1640 Balance 1640 Result Diagrams: 05/29/19 05:05 05/29/19 05:05 Additional Labs: Accuchecks 05/29/19 05/28/19 03:42 21:45 POC Glucose 84 176 H ROS - Review of Systems Respiratory: denies: cough, shortness of breath, SOB with excertion, pleuritic pain, wheezing, other Cardiovascular: denies: chest pain, palpitations, orthopnea, paroxysmal noc. dyspnea, edema, light headedness - Medication Medications: Active Medications Generic Name Dose Route Start Last Admin Trade Name Freq PRN Reason Stop Dose Admin Acetaminophen 650 mg 05/26/19 16:17 05/29/19 06:04 Tylenol PO 650 mg Q4H PRN Administration Headache/Fever/Mild Pain (1-3) Acetaminophen 650 mg 05/26/19 23:53 05/27/19 00:00 Tylenol MT 650 mg Q4H PRN Administration .FEVER Albuterol/Ipratropium 3 ml 05/26/19 22:39 05/26/19 22:54 Duoneb NEB 3 ml [id number] PRN Administration SOB &/or Wheezing Aspirin 81 mg 05/27/19 21:00 05/28/19 20:20 Ecotrin PO 81 mg HS JANICE Administration Atorvastatin Calcium 10 mg 05/27/19 21:00 05/28/19 20:20 Lipitor PO 10 mg HS JANICE Administration Duloxetine HCl 60 mg 05/29/19 09:00 05/29/19 08:22 Cymbalta PO 60 mg DAILY JANICE Administration Folic Acid 1 mg 05/27/19 09:00 05/29/19 08:23 Folvite PO 1 mg DAILY JANICE Administration Gabapentin 600 mg 05/28/19 21:00 05/29/19 08:23 Neurontin PO 600 mg TID JANICE Administration Vancomycin HCl 1.25 gm/ Sodium 250 mls @ 166.667 mls/hr 05/28/19 13:00 15:21 Chloride IVPB 250 mls 1300 JANICE Administration Levothyroxine Sodium 75 mcg 05/28/19 06:00 05/29/19 06:04 Synthroid PO 75 mcg 0600 JANICE Administration Metoclopramide HCl 10 mg 05/27/19 09:00 05/29/19 08:23 Reglan PO 10 mg DAILY JANICE Administration Morphine Sulfate 15 mg 05/28/19 17:04 05/29/19 03:26 Ms Contin PO 15 mg Q8H PRN Administration Pain Pantoprazole Sodium 40 mg 05/27/19 09:00 05/29/19 08:23 Protonix PO 40 mg BID JANICE Administration - Exam NAD Eye: anicteric sclera ENT: normocephalic atraumatic Neck: supple Heart: RRR Respiratory: CTAB Gastrointestinal: soft Skin - other findings: stasis dermatitis Musculoskeletal: normal tone, normal strength Psychiatric: normal affect Hosp A/P (1) DVT (deep venous thrombosis) Code(s): I82.409 - ACUTE EMBOLISM AND THOMBOS UNSP DEEP VN UNSP LOWER EXTREMITY Status: Acute (2) Bacteremia Code(s): R78.81 - BACTEREMIA Status: Acute (3) Acute worsening of stage 3 chronic kidney disease Code(s): N18.3 - CHRONIC KIDNEY DISEASE, STAGE 3 (MODERATE) Status: Acute (4) Severe sepsis Code(s): A41.9 - SEPSIS, UNSPECIFIED ORGANISM; R65.20 - SEVERE SEPSIS WITHOUT SEPTIC SHOCK Status: Resolved (5) Acute metabolic encephalopathy Code(s): G93.41 - METABOLIC ENCEPHALOPATHY Status: Resolved - Plan plan discussed w/ family, continue antibiotics, PT/OT, out of bed/ambulate Continue IV vancomycin 2/2 blood cultures positive for staph epidermidis Pt cleared for anticoagulation, is on therapeutic Lovenox For lithotripsy as outpatient Creatinine improved to 1.84.
[2019-05-29] MEDS: Vancomycin HCl 1.25 GM in Sodium Chloride 0.9% 250 ML 250 ML IVPB SCH (12:14)
--- NOTE | 2019-05-29 12:49 | EKG ---
Test Reason : STAT Blood Pressure : / mmHG Vent. Rate : 095 BPM Atrial Rate : 095 BPM P-R Int : 190 ms QRS Dur : 132 ms QT Int : 368 ms P-R-T Axes : 060 -43 107 degrees QTc Int : 462 ms Normal sinus rhythm Left axis deviation Left ventricular hypertrophy with QRS widening and repolarization abnormality Septal infarct , age undetermined Abnormal ECG When compared with ECG of 26-MAY-2019 11:19, (Unconfirmed) Left bundle branch block is no longer Present Minimal criteria for Septal infarct are now Present Confirmed by JORGE BEAR, DR. Abarca ([id number]) on 05/29/2019 12:49:22 PM Referred By: WILLIS HEBERT Confirmed By:DR. Rima PATEL MD
--- NOTE | 2019-05-29 14:10 | HP ---
ADDENDUM: I reviewed my office records on him. I last saw him in November of this year. He has a history of prostate cancer. He had a Alfredito 3+5 and 5+3 with a PSA 7.9. He was treated with 2 years of Lupron therapy that finished in 2012 and with radiation therapy that was completed in January 2012. 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 There has been no evidence of bladder cancer. Urinary cytologies have been negative. The last scope that he had was in May of 2017. He also has had CT scans that have shown left-sided renal stone. The last was in February of 2018. He did have shockwave lithotripsy done in May of 2016. His PSA in October of 2018 was undetectable. So in terms of his prostate cancer, he seems to be well treated. I am adding this addendum just for documentation for future evaluation here at [facility]. At least part of his medical history will be known. Job ID: [id number]
--- NOTE | 2019-05-29 14:12 | PRG ---
DATE OF SERVICE: 05/29/2019 SUBJECTIVE: Jeffrey Isabel was evaluated. Reviewed lab and microbiology. Also discussed the case with Dr. Dunham. Dr. Dunham believes Staph epidermidis is a contaminant. From breathing standpoint, he is doing well. OBJECTIVE: VITAL SIGNS: He is afebrile, heart rate 80, respiratory rate 17, oximetry is 96% on 1 L and blood pressure 161/82. LUNGS: Clear. HEART: Regular rhythm. ABDOMEN: Soft and nontender. EXTREMITIES: With stasis changes. NEURO: Nonfocal. LABORATORY DATA: White count 9.9, hemoglobin 14.5, platelets 174. Sodium 137, potassium 4.8, chloride 103, bicarb 25, BUN 29, creatinine 1.84. IMPRESSION: 1. Deep venous thrombosis. 2. Nephrolithiasis. 3. Deconditioning. 4. History of an aortic tear with disk surgery requiring prolonged period in the ICU with acute respiratory distress syndrome and renal failure secondary to blood loss. We will switch him to p.o. anticoagulants. I think the risk of bleeding is low. Obviously, I am relieved to hear that it is felt that the Staph epidermidis is most likely contaminant. We will defer to Dr. Dunham' judgment. No clear source of this certainly. P.o. anticoagulants will be started this evening. Job ID: [id number]
--- NOTE | 2019-05-29 14:13 | CON ---
DATE OF CONSULTATION: 05/29/2019 HISTORY OF PRESENT ILLNESS: This is an 83-year-old white male last seen in my office, for few times. He has a history of prostate cancer, history of kidney stone, and lower urinary tract symptoms. He was admitted to the hospital here, it looks like three days ago with altered mental status and fever. He was found on microbiology to have a Staph epidermidis growing in two out of two blood cultures and urine culture that did not grow anything and the urinalysis that was completely normal. His white count when he was admitted was 10.2 and 9.9 currently, his hemoglobin is 14.5. His creatinine was 1.8 when he was admitted, it went up to 2.0, it is down to 1.84 today. Because he was having some lower abdominal pain, he had a noncontrast CAT scan done, which I reviewed. It shows that he does have some left renal pelvic calculi with some mild left hydro. Also some smaller stones in the left calyceal system. The stones measure about 1 to 1.3 cm each. There are no ureteral stones. There is nothing that would obviously suggest significant obstruction to the left ureter apart from some mild hydro. I reviewed this x-ray. He is currently on vancomycin. He was initially on Levaquin and vancomycin. The Levaquin was stopped when the cultures came back. He also was found to have a lower extremity DVT and the Eliquis for that. On talking with him, he says he has not been having any burning or discomfort with urination. He has not seen blood in his urine. He has had some testicular tenderness. He has had some left upper quadrant and a little bit of left back discomfort, not severe. His appetite has not been great, but he has not been vomiting. He looked comfortable and vital signs currently are stable with pulse in the high 80s to low 90s and decent O2 saturations on nasal cannula. IMPRESSION AND PLAN: 1. Sepsis with Staph epidermidis, it is uncertain where this originated. It would seem unlikely to be from the urinary tract with normal urinalysis and negative urine culture and an unusual organism to be growing in the urinary tract. 2. Left renal stones that will need to be treated at some point because of its position. We can probably wait 3 to 4 weeks to do that, unless he becomes more symptomatic from them. They did not appear to be causing significant obstruction at this point in time. I will follow along with you and I will arrange for outpatient visit to my office with him in the next 2 to 3 weeks. Job ID: [id number]
[2019-05-29] MEDS: Atorvastatin Calcium 10 MG TAB PO SCH (19:48)
[2019-05-29] MEDS: Aspirin 81 mg Enteric Coated Tablet PO SCH (19:48)
[2019-05-29] MEDS: Apixaban 5 MG TAB PO SCH (19:48)
[2019-05-30] MEDS: Morphine ER 15 MG TAB PO PRN ×3 (02:04→20:51)
[2019-05-30] MEDS: Levothyroxine Sodium 75 MCG TAB PO SCH (05:45)
[2019-05-30] MEDS: Gabapentin 300 MG CAP PO SCH ×3 (08:43→20:37)
[2019-05-30] MEDS: Acetaminophen 325 MG TAB PO PRN (08:43)
[2019-05-30] MEDS: Apixaban 5 MG TAB PO SCH ×2 (08:43→20:38)
[2019-05-30] MEDS: Folic Acid 1 MG TAB PO SCH (08:44)
[2019-05-30] MEDS: Metoclopramide HCl 10 MG TAB PO SCH (08:44)
[2019-05-30] MEDS: DULoxetine 60 MG CAP PO SCH (08:44)
--- NOTE | 2019-05-30 09:50 | PRG ---
DATE OF SERVICE: 05/30/2019 SUBJECTIVE: Jeffrey Isabel has no complaints. OBJECTIVE: VITAL SIGNS: He is afebrile, heart rate is 88, respiratory rate is 18, oximetry is 95 with blood pressure 156/84. LUNGS: Clear. HEART: Regular rhythm. ABDOMEN: Soft. IMPRESSION: 1. Deep vein thrombosis, currently anticoagulated. 2. 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 It should not be a bleeding risk. 3. Extreme deconditioning and obesity, which is his biggest problem in my opinion. 4. Paralyzed right hemidiaphragm, chronic. 5. Nephrolithiasis, followed by Dr. Wood. 6. Staphylococcus epidermidis on 2 blood cultures drawn at the same time. Dr. Dunham thinks this is most likely contaminant. 7. Chronic kidney disease with improved creatinine. Still creatinine is 1.8. 8. I have recommended discontinuing the vancomycin. I would recommend treating him with Zyvox for a few days while he is in the hospital. He cannot go home until he is ambulatory and stable on his feet in my opinion. Job ID: [id number]
[2019-05-30] MEDS ORDERED: Linezolid 600 MG TAB PO SCH (10:45)
[2019-05-30] MEDS ORDERED: Furosemide 20 MG TAB PO SCH (11:00)
--- NOTE | 2019-05-30 14:05 | PDOC.HOSPP ---
- Subjective Encounter Date: 05/30/19 Encounter Time: 08:00 Subjective: Pt seen for followup re: DVT. Had an episode of shortness of breath, otherwise no complaints. - Objective Vital Signs & Weight: Vital Signs (12 hours) Temp Pulse Resp BP Pulse Ox 05/30/19 08:00 95 05/30/19 07:09 98.6 F 88 18 156/84 H 95 05/30/19 03:11 98.1 F 89 20 154/86 H 94 L Weight Weight 189 lb 6 oz I&O: 05/29/19 05/30/19 05/31/19 06:59 06:59 06:59 Intake Total 1640 1850 240 Balance 1640 1850 240 Result Diagrams: 05/29/19 05:05 05/29/19 05:05 Additional Labs: Labs and MARs reviewed by me ROS - Review of Systems Respiratory: reports: SOB with excertion. denies: cough, dry, shortness of breath, hemoptysis, pleuritic pain, sputum, wheezing Cardiovascular: denies: chest pain, palpitations, orthopnea, paroxysmal noc. dyspnea, edema, light headedness - Medication Medications: Active Medications Generic Name Dose Route Start Last Admin Trade Name Freq PRN Reason Stop Dose Admin Acetaminophen 650 mg 05/26/19 16:17 05/30/19 08:43 Tylenol PO 650 mg Q4H PRN Administration Headache/Fever/Mild Pain (1-3) Acetaminophen 650 mg 05/26/19 23:53 05/27/19 00:00 Tylenol NM 650 mg Q4H PRN Administration .FEVER Albuterol/Ipratropium 3 ml 05/26/19 22:39 05/26/19 22:54 Duoneb NEB 3 ml [id number] PRN Administration SOB &/or Wheezing Apixaban 10 mg 05/29/19 21:00 05/30/19 08:43 Eliquis PO 10 mg BID JANICE Administration Aspirin 81 mg 05/27/19 21:00 05/29/19 19:48 Ecotrin PO 81 mg HS JANICE Administration Atorvastatin Calcium 10 mg 05/27/19 21:00 05/29/19 19:48 Lipitor PO 10 mg HS JANICE Administration Duloxetine HCl 60 mg 05/29/19 09:00 05/30/19 08:44 Cymbalta PO 60 mg DAILY JANICE Administration Folic Acid 1 mg 05/27/19 09:00 05/30/19 08:44 Folvite PO 1 mg DAILY JANICE Administration Gabapentin 600 mg 05/28/19 21:00 05/30/19 08:43 Neurontin PO 600 mg TID JANICE Administration Levothyroxine Sodium 75 mcg 05/28/19 06:00 05/30/19 05:45 Synthroid PO 75 mcg 0600 JANICE Administration Metoclopramide HCl 10 mg 05/27/19 09:00 05/30/19 08:44 Reglan PO 10 mg DAILY JANICE Administration Morphine Sulfate 15 mg 05/28/19 17:04 05/30/19 10:01 Ms Contin PO 15 mg Q8H PRN Administration Pain Pantoprazole Sodium 40 mg 05/27/19 09:00 05/30/19 08:44 Protonix PO 40 mg BID JANICE Administration - Exam NAD Eye: anicteric sclera ENT: moist mucosa Neck: supple Heart: RRR Respiratory - other findings: bibasal crackles Gastrointestinal: soft, non-tender Extremities: 2+ LE edema Skin - other findings: stasis dermatitis Psychiatric: normal affect, normal behavior Hosp A/P (1) DVT (deep venous thrombosis) Code(s): I82.409 - ACUTE EMBOLISM AND THOMBOS UNSP DEEP VN UNSP LOWER EXTREMITY Status: Acute (2) Bacteremia Code(s): R78.81 - BACTEREMIA Status: Acute (3) Acute worsening of stage 3 chronic kidney disease Code(s): N18.3 - CHRONIC KIDNEY DISEASE, STAGE 3 (MODERATE) Status: Acute (4) Severe sepsis Code(s): A41.9 - SEPSIS, UNSPECIFIED ORGANISM; R65.20 - SEVERE SEPSIS WITHOUT SEPTIC SHOCK Status: Resolved (5) Acute metabolic encephalopathy Code(s): G93.41 - METABOLIC ENCEPHALOPATHY Status: Resolved - Plan continue antibiotics, PT/OT, out of bed/ambulate Pt has been switched to linezolid. Pt started on apixaban. For lithotripsy as outpatient Check Chem-7 in AM.
--- NOTE | 2019-05-30 14:30 | PRG ---
DATE OF SERVICE: 05/30/2019 SUBJECTIVE: This is an 83-year-old man, I am seeing today, 30 of May in room 4420. He has been afebrile. His vital signs are stable. He has been weaned off his oxygen and been urinating okay. He is doing well so far on his Eliquis. He has not been having any flank tenderness or discomfort. In terms of his renal stones, I would get a visit set up for him in my office on June 13 at 2:10. We will get a KUB on him at that time also. He will probably be in the hospital over the weekend. I think they switched him to Zyvox. We will check on him on Sunday when I swing by to see patients then. I do not think he will need urologic evaluation this weekend, but if he does, Dr. Karina Mendieta is covering for my practice this weekend. Job ID: [id number]
[2019-05-30] MEDS: Atorvastatin Calcium 10 MG TAB PO SCH (20:37)
[2019-05-30] MEDS: Aspirin 81 mg Enteric Coated Tablet PO SCH (20:38)
[2019-05-30] MEDS: Linezolid 600 MG TAB PO SCH (20:50)
[2019-05-31] MEDS: Levothyroxine Sodium 75 MCG TAB PO SCH (05:28)
[2019-05-31] MEDS: Morphine ER 15 MG TAB PO PRN ×2 (05:32→20:21)
[2019-05-31 06:04] LABS: Band 3 % (5-11); Hemoglobin 13.7 g/dL (14.0-18.0); Lymphocytes 12 % (21-51); MDiff Complete? YES; Mean Corpuscular HGB CONC 31.3 g/dL (32.0-36.0); Mean Corpuscular Volume 89.5 fL (78.0-98.0); Monocytes 16 % (0-10); Neutrophil 68 % (42-75); Platelet Count 187 thou/uL (130-400); Platelet Morphology Comment Appears Adequate; RBC Distribution Width 13.7 % (11.5-14.5); RBC Morphology Normal; Red Blood Cell (RBC) Count 4.89 mill/uL (4.70-6.10); White Blood Cell (WBC) Count 6.8 thou/uL (4.8-10.8)
[2019-05-31 06:15] LABS: BUN (Urea Nitrogen) 34 mg/dL (8.4-25.7); Calc. Creatinine Clearance 34 mL/min (70-130); Calcium 9.3 mg/dL (7.8-10.44); Carbon Dioxide 29 mmol/L (23-31); Chloride 100 mmol/L (98-107); Estimated GFR-MDRD 33; Glucose 101 mg/dL (83-110); Potassium 4.6 mmol/L (3.5-5.1); Sodium 135 mmol/L (136-145)
[2019-05-31 06:17] LABS: Anion Gap 11 mmol/L (10-20)
[2019-05-31] MEDS ORDERED: Furosemide 40 MG TAB PO SCH (07:30)
[2019-05-31] MEDS: Gabapentin 300 MG CAP PO SCH ×3 (07:36→20:21)
[2019-05-31] MEDS: DULoxetine 60 MG CAP PO SCH (07:36)
[2019-05-31] MEDS: Folic Acid 1 MG TAB PO SCH (07:37)
[2019-05-31] MEDS: Metoclopramide HCl 10 MG TAB PO SCH (07:37)
[2019-05-31] MEDS: Apixaban 5 MG TAB PO SCH ×2 (07:37→20:21)
[2019-05-31] MEDS: Linezolid 600 MG TAB PO SCH ×2 (07:38→20:21)
[2019-05-31] MEDS: Acetaminophen 325 MG TAB PO PRN (11:16)
--- NOTE | 2019-05-31 11:40 | PRG ---
DATE OF SERVICE: 05/31/2019 SUBJECTIVE: Mr. Isabel is up and walking in the room with a cane. He does appear somewhat weak. OBJECTIVE: VITAL SIGNS: Temperature 98.4, pulse 79, respirations 18, O2 saturation 94% on 1.5 L, and blood pressure 150/79. HEENT: Unremarkable. NECK: No JVD. CHEST: Clear to auscultation. CARDIAC: S1 and S2, regular. ABDOMEN: Soft. EXTREMITIES: No edema. LABORATORY DATA: White blood cell count 6.8, hematocrit 43.7, and platelet count 187. Sodium 135, BUN 34, creatinine 1.9, and glucose 101. ASSESSMENT: 1. Deep venous thrombosis, currently anticoagulated. 2. History of aortic tear in the past. 3. Severe deconditioning. 4. Paralyzed right hemidiaphragm. 5. Nephrolithiasis. 6. Chronic kidney disease. 7. Sepsis and bacteremia. PLAN: He may need some type of rehab prior to going home. He is continuing Linezolid for the sepsis. Job ID: [id number]
--- NOTE | 2019-05-31 16:27 | PDOC.HOSPP ---
- Subjective Encounter Date: 05/31/19 Encounter Time: 08:00 Subjective: Pt seen for followup re: DVT. No complaints today. - Objective Vital Signs & Weight: Vital Signs (12 hours) Temp Pulse Resp BP Pulse Ox 05/31/19 08:00 94 L 05/31/19 07:14 98.4 F 79 18 150/79 H 94 L Weight Weight 189 lb 6 oz I&O: 05/30/19 05/31/19 06/01/19 06:59 06:59 06:59 Intake Total 1850 1320 Balance 1850 1320 Result Diagrams: 05/31/19 05:31 05/31/19 05:31 Additional Labs: Labs and MARs reviewed ROS - Review of Systems Cardiovascular: denies: chest pain, palpitations, orthopnea, paroxysmal noc. dyspnea, edema, light headedness Gastrointestinal: denies: nausea, vomitting, abdominal pain, diarrhea, constipation, melena, hematochezia - Medication Medications: Active Medications Generic Name Dose Route Start Last Admin Trade Name Freq PRN Reason Stop Dose Admin Acetaminophen 650 mg 05/26/19 16:17 05/31/19 11:16 Tylenol PO 650 mg Q4H PRN Administration Headache/Fever/Mild Pain (1-3) Acetaminophen 650 mg 05/26/19 23:53 05/27/19 00:[address] 650 mg Q4H PRN Administration .FEVER Albuterol/Ipratropium 3 ml 05/26/19 22:39 05/26/19 22:54 Duoneb NEB 3 ml [id number] PRN Administration SOB &/or Wheezing Apixaban 10 mg 05/29/19 21:00 05/31/19 07:37 Eliquis PO 10 mg BID JANICE Administration Aspirin 81 mg 05/27/19 21:00 05/30/19 20:38 Ecotrin PO 81 mg HS JANICE Administration Atorvastatin Calcium 10 mg 05/27/19 21:00 05/30/19 20:37 Lipitor PO 10 mg HS JANICE Administration Duloxetine HCl 60 mg 05/29/19 09:00 05/31/19 07:36 Cymbalta PO 60 mg DAILY JANICE Administration Folic Acid 1 mg 05/27/19 09:00 05/31/19 07:37 Folvite PO 1 mg DAILY JANICE Administration Furosemide 40 mg 05/31/19 07:30 05/31/19 07:37 Lasix PO 40 mg DAILY-AC JANICE Administration Gabapentin 600 mg 05/28/19 21:00 05/31/19 15:17 Neurontin PO 600 mg TID JANICE Administration Levothyroxine Sodium 75 mcg 05/28/19 06:00 05/31/19 05:28 Synthroid PO 75 mcg 0600 JANICE Administration Linezolid 600 mg 05/30/19 21:00 05/31/19 07:38 Zyvox PO 600 mg Q12HR JANICE Administration Metoclopramide HCl 10 mg 05/27/19 09:00 05/31/19 07:37 Reglan PO 10 mg DAILY JANICE Administration Morphine Sulfate 15 mg 05/28/19 17:04 05/31/19 05:32 Ms Contin PO 15 mg Q8H PRN Administration Pain Pantoprazole Sodium 40 mg 05/27/19 09:00 05/31/19 07:37 Protonix PO 40 mg BID JANICE Administration Sumatriptan Succinate 50 mg 05/27/19 08:27 05/31/19 12:47 Imitrex PO 50 mg DAILY PRN Administration Headache - Exam NAD Eye: anicteric sclera ENT: normocephalic atraumatic Neck: supple Heart: RRR Respiratory: CTAB Gastrointestinal: soft Extremities: no cyanosis Skin: normal turgor Neurological: CN's grossly intact Psychiatric: normal affect Hosp A/P (1) DVT (deep venous thrombosis) Code(s): I82.409 - ACUTE EMBOLISM AND THOMBOS UNSP DEEP VN UNSP LOWER EXTREMITY Status: Acute (2) Bacteremia Code(s): R78.81 - BACTEREMIA Status: Acute (3) Acute worsening of stage 3 chronic kidney disease Code(s): N18.3 - CHRONIC KIDNEY DISEASE, STAGE 3 (MODERATE) Status: Acute (4) Severe sepsis Code(s): A41.9 - SEPSIS, UNSPECIFIED ORGANISM; R65.20 - SEVERE SEPSIS WITHOUT SEPTIC SHOCK Status: Resolved (5) Acute metabolic encephalopathy Code(s): G93.41 - METABOLIC ENCEPHALOPATHY Status: Resolved - Plan continue antibiotics, PT/OT, out of bed/ambulate Continue linezolid. Continue apixaban, no evidence of bleeding. For lithotripsy as outpatient Creatinine slightly worse today, consult nephrology; pt has known nephrolithiasis, will rule out other caues.
[2019-05-31] MEDS: Atorvastatin Calcium 10 MG TAB PO SCH (20:21)
[2019-05-31] MEDS: Aspirin 81 mg Enteric Coated Tablet PO SCH (20:21)
[2019-05-31] MEDS ORDERED: Calcium Carbonate 500 MG ChewTAB PO PRN (21:29)
--- NOTE | 2019-05-31 22:00 | CON ---
DATE OF CONSULTATION: 05/31/2019 CONSULTING PHYSICIAN: Dr. Borges. REASON FOR CONSULTATION: Acute kidney injury on admission, and altered mentation. HISTORY OF PRESENT ILLNESS: An 83-year-old male with history of hiatal hernia, GERD, hyperlipidemia, came to the hospital with altered mentation, is being admitted for few days. At the hospital, his creatinine stayed elevated at around 1.9 and 1.8, it was actually initially around 2. The patient denies any complaints. No chest pain. No nausea or vomiting. No diarrhea. PAST MEDICAL HISTORY: Positive was hiatal hernia, GERD, hypothyroidism, hyperlipidemia, prostate cancer. PAST SURGICAL HISTORY: Back surgery, aorta repair, sinus surgery, cholecystectomy, and prostate surgery. HOME MEDICATIONS: 1. Aspirin. 2. Fioricet. 3. Lipitor. 4. Celecoxib. 5. Folic acid. 6. Furosemide. 7. Gabapentin. 8. Synthroid. 9. Reglan. 10. Morphine. 11. Pantoprazole. 12. Potassium. 13. Urocit-K. 14. Imitrex. ALLERGIES: CEFEPIME, PENICILLIN, IMIPENEM, SOCIAL HISTORY: No smoking, alcohol, or drugs. FAMILY HISTORY: No history of kidney disease. REVIEW OF SYSTEMS: CONSTITUTIONAL: Negative for weight loss or gain, ability to conduct usual activities. SKIN: Negative for rash, itching. EYES: Negative for double vision, pain. ENT/MOUTH: Negative for nose bleeding, neck stiffness, pain, tenderness. CARDIOVASCULAR: Negative for palpitations, dyspnea on exertion, orthopnea. RESPIRATORY: Negative for shortness of breath, wheezing, cough, hemoptysis, fever or night sweats. GASTROINTESTINAL: Negative for poor appetite, abdominal pain, heartburn, nausea, vomiting, constipation, or diarrhea. GENITOURINARY: Negative for urgency, frequency, dysuria, nocturia. MUSCULOSKELETAL: Negative for pain, swelling. NEUROLOGIC/PSYCHIATRIC: Negative for anxiety, depression. ALLERGY/IMMUNOLOGIC: Negative for skin rash, bleeding tendency. Rest are negative review of systems. PHYSICAL EXAMINATION: GENERAL: This is an elderly male, in no apparent distress. VITAL SIGNS: Temperature 98.4, pulse 79, respirations 18, blood pressure 150/79. HEENT: Atraumatic and normocephalic. Oral mucosa is moist. NECK: Supple. CV: S1 and S2 heard. Regular rate and rhythm. RESPIRATORY: Clear to auscultation. MUSCULOSKELETAL: No tenderness. No edema. DERMATOLOGIC: No skin rash. NEUROLOGIC: Alert and awake. PSYCHIATRIC: Mood and affect normal. LABORATORY DATA: Hemoglobin is 13.7, potassium is 4.6, BUN is 34, creatinine is 1.9. ASSESSMENT AND PLAN: 1. Acute kidney injury on chronic kidney disease, stage 3, urine output seems to be stable. We will continue to monitor. Avoid nephrotoxins. 2. Edema, uncontrolled. 3. Hypertension, stable. 4. Anemia of chronic disease. 5. Nephrolithiasis. Follow up with Urology. We will monitor renal function. Avoid nephrotoxins. Medication list reviewed. We will recommend renally dose the medications. Avoid nephrotoxins. We will follow. Thank you for the consult. Job ID: [id number]
[2019-06-01] MEDS: Levothyroxine Sodium 75 MCG TAB PO SCH (05:22)
[2019-06-01] MEDS: Morphine ER 15 MG TAB PO PRN ×2 (05:22→16:03)
[2019-06-01 06:25] LABS: Anion Gap 12 mmol/L (10-20); BUN (Urea Nitrogen) 37 mg/dL (8.4-25.7); Calc. Creatinine Clearance 34 mL/min (70-130); Calcium 9.9 mg/dL (7.8-10.44); Carbon Dioxide 30 mmol/L (23-31); Chloride 99 mmol/L (98-107); Estimated GFR-MDRD 32; Glucose 100 mg/dL (83-110); Potassium 4.5 mmol/L (3.5-5.1); Sodium 136 mmol/L (136-145)
[2019-06-01 06:37] LABS: Band 4 % (5-11); Hemoglobin 14.2 g/dL (14.0-18.0); Lymphocytes 8 % (21-51); MDiff Complete? YES; Mean Corpuscular Volume 90.1 fL (78.0-98.0); Mean Platelet Volume 7.5 fL (7.4-10.4); Monocytes 12 % (0-10); Neutrophil 76 % (42-75); Platelet Count 211 thou/uL (130-400); Platelet Morphology Comment Appears Adequate; RBC Distribution Width 13.8 % (11.5-14.5); RBC Morphology Normal; Red Blood Cell (RBC) Count 5.09 mill/uL (4.70-6.10); White Blood Cell (WBC) Count 8.5 thou/uL (4.8-10.8)
[2019-06-01] MEDS: Apixaban 5 MG TAB PO SCH ×2 (08:50→20:38)
[2019-06-01] MEDS: Linezolid 600 MG TAB PO SCH ×2 (08:51→20:38)
[2019-06-01] MEDS: Gabapentin 300 MG CAP PO SCH ×3 (08:51→20:38)
[2019-06-01] MEDS: DULoxetine 60 MG CAP PO SCH (08:51)
[2019-06-01] MEDS: Metoclopramide HCl 10 MG TAB PO SCH (08:53)
[2019-06-01] MEDS: Folic Acid 1 MG TAB PO SCH (08:53)
[2019-06-01] MEDS: Acetaminophen 325 MG TAB PO PRN ×2 (09:01→20:39)
--- NOTE | 2019-06-01 10:09 | PRG ---
DATE OF SERVICE: 06/01/2019 SUBJECTIVE: Mr. Isabel is doing well, has no acute complaints. OBJECTIVE: VITAL SIGNS: Temperature 98.5, pulse 81, respirations 18, O2 saturation 96%, and blood pressure 133/76. HEENT: Unremarkable. NECK: No JVD. CHEST: Clear to auscultation. CARDIAC: S1, S2 regular without murmur. ABDOMEN: Soft. EXTREMITIES: No edema. LABORATORY DATA: White blood cell count 8.5, hematocrit 45.9, and platelet count 211. Sodium 136, potassium 4.5, chloride 99, CO2 of 30, BUN 37, creatinine 1.9, and glucose 100. ASSESSMENT: 1. Deep venous thrombosis, requiring anticoagulation. 2. History of multiple chronic medical problems. 3. Currently in for sepsis of bacteremia. PLAN: Continue linezolid, work towards hospital discharge tomorrow. Job ID: [id number]
--- NOTE | 2019-06-01 14:06 | PRG ---
DATE OF SERVICE: 06/01/2019 SUBJECTIVE: Sitting up by the bedside, in the room with him, doing well. He has been started on Eliquis. Dr. Wood has evaluated the patient and will plan outpatient lithotripsy procedure. He is currently without any headaches. No dyspnea or chest pain. No abdominal pain. Voiding without difficulty. OBJECTIVE: VITAL SIGNS: T-max 98.8. Other vital signs are normal. GENERAL: Awake, alert, and oriented. HEENT: Ocular movements are conjugate. Oral cavity is moist. LUNGS: Symmetric. Clear breath sounds. HEART: S1 and S2, regular rate. ABDOMEN: Soft. Not distended. : Voiding on his own without problems. SKIN: Stasis dermatitis as noted before. LABORATORY DATA: White cell count 8.5, hemoglobin 14, platelets 211, 76% neutrophils. Sodium 136, creatinine is at stable 1.98. Microbiology with Staph epidermidis, which we felt to represent a contamination of the sample rather than a true bacteremia. Urine culture was negative at 48 hours. Repeat blood cultures, no growth at 48 hours. ASSESSMENT AND DISCUSSION: History of prostate cancer, treated with radiation therapy; prior aortic perforation, which required Hemashield patch in 2003; now with altered mental status, neutrophilia, and fever with evidence of actually two large calculi in the left ureteropelvic junction with moderate left hydronephrosis. Dr. Wood has evaluated the patient. He also had a deep venous thrombosis in the left femoral, which has been managed with Eliquis. Repeat 2 sets of blood cultures have been negative. The echocardiogram showed a moderately thickened valve. There is a possibility that this bacteremia is legitimate or true bacteremia. For example, if the stone was obstructing the infected urine and the organism was hiding behind the stone, but that is less likely. The other possibility would be an infection of the heart valve, finding that less likely. Evidently, if the patient develops persistence of this detectable bacteremia in the future, then we will have to reassess, but at this point in time, I would not treat this finding. Repeat cultures will have to be taken in the outpatient setting, particularly of the urine before the planned lithotripsy. Job ID: [id number]
--- NOTE | 2019-06-01 14:48 | PDOC.HOSPP ---
- Subjective Encounter Date: 06/01/19 Encounter Time: 08:00 Subjective: Pt seen for followup re: DVT. feels better, ambulating in hallways. - Objective Vital Signs & Weight: Vital Signs (12 hours) Temp Pulse Resp BP Pulse Ox 06/01/19 07:14 98.5 F 81 18 131/76 96 Weight Weight 189 lb 6 oz I&O: 05/31/19 06/01/19 06/02/19 06:59 06:59 06:59 Intake Total 1320 500 480 Balance 1320 500 480 Result Diagrams: 06/01/19 05:20 06/01/19 05:20 Additional Labs: labs and MARs reviewed by me ROS - Review of Systems Cardiovascular: denies: chest pain, palpitations, orthopnea, paroxysmal noc. dyspnea, edema, light headedness Gastrointestinal: denies: nausea, vomitting, abdominal pain, diarrhea, constipation, melena, hematochezia Genitourinary: denies: dysuria, frequency, incontinence, hematuria, retention - Medication Medications: Active Medications Generic Name Dose Route Start Last Admin Trade Name Freq PRN Reason Stop Dose Admin Acetaminophen 650 mg 05/26/19 16:17 06/01/19 09:01 Tylenol PO 650 mg Q4H PRN Administration Headache/Fever/Mild Pain (1-3) Acetaminophen 650 mg 05/26/19 23:53 05/27/19 00:00 Tylenol CA 650 mg Q4H PRN Administration .FEVER Albuterol/Ipratropium 3 ml 05/26/19 22:39 05/26/19 22:54 Duoneb NEB 3 ml [id number] PRN Administration SOB &/or Wheezing Apixaban 10 mg 05/29/19 21:00 06/01/19 08:50 Eliquis PO 10 mg BID JANICE Administration Aspirin 81 mg 05/27/19 21:00 05/31/19 20:21 Ecotrin PO 81 mg HS JANICE Administration Atorvastatin Calcium 10 mg 05/27/19 21:00 05/31/19 20:21 Lipitor PO 10 mg HS JANICE Administration Calcium Carbonate 1,000 mg 05/31/19 21:29 05/31/19 22:01 Tums PO 1,000 mg DAILYPRN PRN Administration Heartburn or Indigestion Duloxetine HCl 60 mg 05/29/19 09:00 06/01/19 08:51 Cymbalta PO 60 mg DAILY JANICE Administration Folic Acid 1 mg 05/27/19 09:00 06/01/19 08:53 Folvite PO 1 mg DAILY JANICE Administration Furosemide 40 mg 05/31/19 07:30 05/31/19 07:37 Lasix PO 40 mg DAILY-AC JANICE Administration Gabapentin 600 mg 05/28/19 21:00 06/01/19 08:51 Neurontin PO 600 mg TID JANICE Administration Levothyroxine Sodium 75 mcg 05/28/19 06:00 06/01/19 05:22 Synthroid PO 75 mcg 0600 JANICE Administration Linezolid 600 mg 05/30/19 21:00 06/01/19 08:51 Zyvox PO 600 mg Q12HR JANICE Administration Metoclopramide HCl 10 mg 05/27/19 09:00 06/01/19 08:53 Reglan PO 10 mg DAILY JANICE Administration Morphine Sulfate 15 mg 05/28/19 17:04 06/01/19 05:22 Ms Contin PO 15 mg Q8H PRN Administration Pain Pantoprazole Sodium 40 mg 05/27/19 09:00 06/01/19 08:50 Protonix PO 40 mg BID JANICE Administration Sumatriptan Succinate 50 mg 05/27/19 08:27 05/31/19 12:47 Imitrex PO 50 mg DAILY PRN Administration Headache - Exam NAD, awake alert Eye: PERRL, anicteric sclera ENT: normocephalic atraumatic, moist mucosa Neck: supple, no thyromegaly Heart: RRR, no rubs Respiratory: CTAB, no rales Gastrointestinal: soft, non-tender Extremities: 2+ LE edema Skin - other findings: stasis dermatitis Neurological: no weakness Musculoskeletal: no muscle wasting Psychiatric: normal affect, normal behavior Hosp A/P (1) DVT (deep venous thrombosis) Code(s): I82.409 - ACUTE EMBOLISM AND THOMBOS UNSP DEEP VN UNSP LOWER EXTREMITY Status: Acute (2) Bacteremia Code(s): R78.81 - BACTEREMIA Status: Acute (3) Acute worsening of stage 3 chronic kidney disease Code(s): N18.3 - CHRONIC KIDNEY DISEASE, STAGE 3 (MODERATE) Status: Acute (4) Severe sepsis Code(s): A41.9 - SEPSIS, UNSPECIFIED ORGANISM; R65.20 - SEVERE SEPSIS WITHOUT SEPTIC SHOCK Status: Resolved (5) Acute metabolic encephalopathy Code(s): G93.41 - METABOLIC ENCEPHALOPATHY Status: Resolved - Plan continue antibiotics, PT/OT, out of bed/ambulate Will continue linezolid while patient is in the hospital. Continue apixaban for DVT, no evidence of bleeding. 10 mg PO BID till Jun 06, then 5 mg BID. For lithotripsy as outpatient, to follow up with urology. Appreciate nephrology service input.
--- NOTE | 2019-06-01 15:12 | PRG ---
DATE OF SERVICE: 06/01/2019 SUBJECTIVE: Patient was seen and examined at bedside and overnight events noted. Patient denies any shortness of breath or chest pain or palpitation. No history of nausea or vomiting or diarrhea or fever or chills or cramps. OBJECTIVE: GENERAL: This is a well-built male, in no apparent distress. VITAL SIGNS: Temperature 99.5. Heart rate 81. Respiratory rate 18. Blood pressure 131/76. HEENT: Atraumatic, normocephalic. Oral mucosa is moist. NECK: Supple. CARDIOVASCULAR: S1, S2 heard. Rate and rhythm regular. RESPIRATORY: Clear to auscultation. GASTROINTESTINAL: Abdomen is soft. MUSCULOSKELETAL: No tenderness. No edema. DERMATOLOGIC: No skin rash. NEUROLOGIC: Alert and awake and oriented x3. No focal neurologic deficits. Moving all the extremities. PSYCHIATRIC: Mood and affect normal. LABORATORY DATA: Potassium 4.5, BUN is 37, and creatinine is 1.9. ASSESSMENT AND PLAN: 1. Acute kidney injury on chronic kidney disease, stage 3. We will check chronic kidney disease labs. 2. Edema, controlled. 3. Hypertension, stable. 4. Anemia of chronic disease. 5. Nephrolithiasis. Follow with Urology. Renal function is stable. We will follow. Job ID: [id number]
[2019-06-01 18:41] LABS: Creatinine, Urine 86.71 mg/dL (63-166)
[2019-06-01] MEDS: Aspirin 81 mg Enteric Coated Tablet PO SCH (20:38)
[2019-06-01] MEDS: Atorvastatin Calcium 10 MG TAB PO SCH (20:39)
[2019-06-02] MEDS: Morphine ER 15 MG TAB PO PRN ×2 (05:05→14:28)
[2019-06-02] MEDS: Levothyroxine Sodium 75 MCG TAB PO SCH (05:05)
[2019-06-02 06:52] LABS: Hemoglobin 14.3 g/dL (14.0-18.0); Mean Corpuscular HGB CONC 31.2 g/dL (32.0-36.0); Mean Corpuscular Hemoglobin 27.8 pg (27.0-31.0); Mean Corpuscular Volume 89.3 fL (78.0-98.0); Mean Platelet Volume 7.1 fL (7.4-10.4); Platelet Count 211 thou/uL (130-400); RBC Distribution Width 13.8 % (11.5-14.5); Red Blood Cell (RBC) Count 5.14 mill/uL (4.70-6.10); White Blood Cell (WBC) Count 7.2 thou/uL (4.8-10.8)
[2019-06-02 07:10] LABS: Anion Gap 14 mmol/L (10-20); BUN (Urea Nitrogen) 37 mg/dL (8.4-25.7); Calc. Creatinine Clearance 36 mL/min (70-130); Calcium 9.9 mg/dL (7.8-10.44); Carbon Dioxide 28 mmol/L (23-31); Chloride 98 mmol/L (98-107); Estimated GFR-MDRD 34; Glucose 86 mg/dL (83-110); Sodium 135 mmol/L (136-145)
[2019-06-02 07:41] LABS: Band 5 % (5-11); Eosinophils 1 % (0-10); Lymphocytes 24 % (21-51); MDiff Complete? YES; Monocytes 7 % (0-10); Neutrophil 61 % (42-75); RBC Morphology Normal; Reactive Lymphocytes 2 % (0-10)
[2019-06-02] MEDS: Apixaban 5 MG TAB PO SCH (08:35)
[2019-06-02] MEDS: Gabapentin 300 MG CAP PO SCH ×2 (08:35→14:30)
[2019-06-02] MEDS: DULoxetine 60 MG CAP PO SCH (08:35)
[2019-06-02] MEDS: Folic Acid 1 MG TAB PO SCH (08:36)
[2019-06-02] MEDS: Metoclopramide HCl 10 MG TAB PO SCH (08:36)
[2019-06-02] MEDS: Linezolid 600 MG TAB PO SCH (08:39)
--- NOTE | 2019-06-02 09:50 | PRG ---
DATE OF SERVICE: 06/02/2019 SUBJECTIVE: The patient is doing fairly well. Had no acute complaints. OBJECTIVE: VITAL SIGNS: Temperature 98.0, pulse 80, respirations 18, O2 saturation 95% on 2 L, 92% on room air at rest, and blood pressure 148/75. HEENT: Unremarkable. NECK: No adenopathy or JVD. CHEST: Clear. CARDIAC: S1, S2. Regular. ABDOMEN: Soft. EXTREMITIES: No edema. LABORATORY DATA: White blood cell count 7.2, hematocrit 45.9, and platelet count 211. Sodium 135, potassium 5, BUN 37, creatinine 1.8, and glucose 86. ASSESSMENT: 1. Deep vein thrombosis requiring anticoagulation. 2. Chronic medical problems. 3. Bacteremia. PLAN: 1. Probably will need a total of 10 to 14 days of Zyvox. 2. Eliquis 10 mg b.i.d. for total of 7 days and 5 mg b.i.d. thereafter. 3. May need home oxygen at 2 L nasal cannula, if he desaturates with exertion. Job ID: [id number]
[2019-06-02] MEDS: Acetaminophen 325 MG TAB PO PRN (10:54)
--- NOTE | 2019-06-02 13:34 | PRG ---
DATE OF SERVICE: 06/02/2019 SUBJECTIVE: An 83-year-old gentleman is being seen for acute kidney injury. The patient denies any nausea, vomiting, or chest pain. OBJECTIVE: GENERAL: The patient is awake and alert. VITAL SIGNS: Pulse 80, breathing 16, blood pressure 148/75. GENERAL APPEARANCE AND MENTAL STATUS: Fair. HEAD/NECK: Normocephalic. Atraumatic. EYES: EOMI. No deformity. EARS: Clear. No ulcers. NOSE: Intact. No lesions. MOUTH: Clear. No discharge. THROAT: Clear. No exudate. LUNGS: Clear. No crackles. CARDIAC: S1, S2. No rub. ABDOMEN: Benign. Bowel sounds positive. GENITALIA/RECTUM: Rodriguez absent. BACK/EXTREMITIES: Edema 0+. NEUROLOGICAL: Alert and motor intact. LABORATORY DATA: Reviewed. ASSESSMENT: 1. Stage 3 chronic kidney disease, stable. 2. Hypertension, stable. 3. Anemia, stable. 4. Medication based on GFR appropriate. 5. I will sign off on this patient. Please reconsult as needed. 6. The patient will follow up with Dr. Hay in 1 to 2 weeks. Job ID: [id number]
[2019-06-02] MEDS ORDERED: Apixaban 5 MG TAB PO SCH (17:45)
[2019-06-02 18:12] VITALS: BP 155/84; TEMP 98.9
--- NOTE | 2019-06-03 04:34 | DIS ---
DATE OF ADMISSION: 05/26/2019 DATE OF DISCHARGE: 06/02/2019 PRIMARY CARE PROVIDER: Dr. Tc Mancini. DISCHARGE DIAGNOSES: 1. Severe sepsis with acute on chronic kidney disease. 2. Bacteremia. 3. Acute on chronic stage 3 kidney disease. 4. Acute metabolic encephalopathy. 5. Deep vein thrombosis. DISCHARGE MEDICATIONS: 1. Lipitor 80 mg at bedtime. 2. Celebrex 200 mg daily. 3. Cymbalta 60 mg daily. 4. Folic acid 1 mg daily. 5. Gabapentin 600 mg 3 times a day. 6. Synthroid 75 mcg daily. 7. Reglan 10 mg daily. 8. Multivitamins one tablet daily. 9. Protonix 40 mg 2 times a day. 10. Vitamin B complex one capsule at bedtime. 11. Zyvox 600 mg 2 times a day for 5 more days. 12. Apixaban 10 mg 2 times a day until 06/06/2019, then 5 mg 2 times a day. 13. Lasix 40 mg daily. CONDITION OF PATIENT ON THE DAY OF DISCHARGE: Stable. I assessed Mr. Isabel on the day of discharge. He denies any chest pain or shortness of breath. He denies any fevers or chills. He denies any nausea or vomiting. Vital signs are stable. S1 and S2 are heard, regular. Lungs are clear to auscultation bilaterally. HOSPITAL COURSE: Mr. Isabel is a pleasant 83-year-old gentleman, who was admitted to [facility] on 05/26/2019, for severe sepsis with acute on chronic renal failure. Please refer to my history and physical note dated 05/26/2019, for further details. 2/2 blood cultures grew Staphylococcus epidermidis. He was seen by Infectious Diseases Service. 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 Because of his history of aortic bleed, he was seen by Cardiovascular Surgery. He was cleared for anticoagulation. He was also seen by Pulmonary and Critical Care Medicine. He was initially treated with Lovenox, subsequently switched to apixaban. 2D echocardiogram was a technically difficult study with poor endocardial definition. EF appeared to be mildly depressed and could not be quantified. He had mild to moderate mitral regurgitation, and mild tricuspid regurgitation. He also had moderately thickened trileaflet aortic valve with decreased excursion. He has paralysis of hemidiaphragm. He was hypoxic during this hospitalization. The hypoxia was evident with ambulation and resolved upon application of oxygen. He is being discharged home with home oxygen. He was seen by Urology Service for nephrolithiasis. They planned to follow up with him for a lithotripsy as outpatient. He was also seen by Nephrology Service for acute on chronic stage 3 renal failure. They will follow up with him as outpatient as well. Nephrotoxic medications were held. Potassium citrate and potassium chloride were discontinued. These changes were approved by Nephrology Service. On the day of discharge, Mr. Isabel has sodium 135, potassium 5.0, blood urea nitrogen 37, creatinine 1.88, white count 7200, hemoglobin 14.3, and platelet count 211,000. Many thanks for allowing me to participate in your patient's care. Please feel free to contact me with any questions or concerns. DISCHARGE DESTINATION: Home. TIME SPENT: Total amount of time spent coordinating this discharge: 20 minutes. Job ID: [id number]
[2019-06-03] MEDS ORDERED: Apixaban 5 MG TAB PO SCH (09:00)
[2019-06-07] MEDS ORDERED: Apixaban 5 MG TAB PO SCH (09:00)
== END 2019-06-02 18:22 | disposition home or self-care (01) | DRG 871 ==
LOC: ERS 11:10 → ERHOLD 13:24 → T4-B 18:20
PROVIDERS: ADMIT Internal Medicine; ATTEND Internal Medicine
DX: A41.2 Sepsis due to unspecified staphylococcus (principal); G93.41 Metabolic encephalopathy; J96.01 Acute respiratory failure with hypoxia; K66.1 Hemoperitoneum; I82.4Z9 Acute embolism and thrombosis of unspecified deep veins of unspecified distal lower extremity; N13.2 Hydronephrosis with renal and ureteral calculous obstruction; N17.9 Acute kidney failure, unspecified; I13.0 Hypertensive heart and chronic kidney disease with heart failure and stage 1 through stage 4 chronic kidney disease, or unspecified chronic kidney disease; K21.9 Gastro-esophageal reflux disease without esophagitis; E03.9 Hypothyroidism, unspecified; E78.5 Hyperlipidemia, unspecified; D72.0 Genetic anomalies of leukocytes; R65.20 Severe sepsis without septic shock; I50.9 Heart failure, unspecified; N18.3 Chronic kidney disease, stage 3 (moderate); D63.1 Anemia in chronic kidney disease; N50.819 Testicular pain, unspecified; G89.29 Other chronic pain; Z90.49 Acquired absence of other specified parts of digestive tract; Z88.1 Allergy status to other antibiotic agents; Z88.0 Allergy status to penicillin; Z88.8 Allergy status to other drugs, medicaments and biological substances; Z87.891 Personal history of nicotine dependence; Z79.01 Long term (current) use of anticoagulants; Z68.28 Body mass index [BMI] 28.0-28.9, adult; Z85.46 Personal history of malignant neoplasm of prostate
CPT/HCPCS: 36415; 36416; 51701; 70450; 71045; 74176; 80048; 80053; 80202; 81003; 82553; 82570; 83605; 83880; 83970; 84156; 84443; 84484; 85025; 87040; 87077; 87086; 87149; 87186; 87804; 93005; 93010; 93306; 93970; 94640; 96361; 96365; 96367; J1644; J1650; J1956; J3370; J7050; J8597

== ENCOUNTER 2019-07-03 06:37 | Inpatient (IN) | payer MEDICARE ==
[2019-07-03 07:08] LABS: #Eosinphils 0.1 thou/uL (0.0-0.7); #Lymphocytes 0.6 thou/uL (1.20-3.40); #Monocytes 1.5 thou/uL (0.11-0.59); %Basophils 0.1 % (0.0-1.0); %Eosinophils 0.9 % (0.0-10.0); %Lymphocytes 4.3 % (21.0-51.0); %Monocytes 11.6 % (0.0-10.0); %Neutrophils 83.1 % (42.0-75.0); Hemoglobin 13.1 g/dL (14.0-18.0); Mean Corpuscular HGB CONC 32.3 g/dL (32.0-36.0); Mean Corpuscular Hemoglobin 28.6 pg (27.0-31.0); Mean Corpuscular Volume 88.6 fL (78.0-98.0); Mean Platelet Volume 6.5 fL (7.4-10.4); Platelet Count 302 thou/uL (130-400); RBC Distribution Width 14.3 % (11.5-14.5); Red Blood Cell (RBC) Count 4.57 mill/uL (4.70-6.10); White Blood Cell (WBC) Count 13.3 thou/uL (4.8-10.8)
[2019-07-03 07:24] LABS: ALT (SGPT) 21 U/L (8-55); AST (SGOT) 25 U/L (5-34); Albumin 3.7 g/dL (3.4-4.8); Alkaline Phosphatase 110 U/L (40-150); Anion Gap 13 mmol/L (10-20); BUN (Urea Nitrogen) 50 mg/dL (8.4-25.7); Bilirubin, Total 0.4 mg/dL (0.2-1.2); Calc. Creatinine Clearance 0 mL/min (70-130); Calcium 9.4 mg/dL (7.8-10.44); Carbon Dioxide 31 mmol/L (23-31); Chloride 100 mmol/L (98-107); Estimated GFR-MDRD 31; Globulin 3.5 g/dL (2.4-3.5); Glucose 132 mg/dL (83-110); Potassium 4.3 mmol/L (3.5-5.1); Protein, Total 7.2 g/dL (5.8-8.1); Sodium 140 mmol/L (136-145)
[2019-07-03 07:45] LABS: Bilirubin Negative (Negative); Blood, Urine 3+ (Negative); Clarity Turbid (Clear); Glucose, Urine (Dipstick) Normal (Negative); Leukocyte 500 Leu/uL (Negative); Nitrite Negative (Negative); Protein, Urine (Dipstick) 20 mg/dL (Neg-Trace); RBC/HPF Greater than 50 HPF (0-3); Squamous Epithelial None Seen HPF (0-3); Urobilinogen Normal mg/dL (Less than 2); WBC/HPF Greater than 50 HPF (0-3)
[2019-07-03 07:47] LABS: Bacteria/HPF 1+ HPF (None Seen)
[2019-07-03 08:02] LABS: CKMB 2.2 ng/mL (0-6.6)
[2019-07-03] MEDS ORDERED: Azithromycin 500 MG VIAL ONE (08:05)
--- NOTE | 2019-07-03 09:35 | RAD ---
PORTABLE CHEST: HISTORY: Respiratory distress. COMPARISON: 05/26/2019 study. FINDINGS: Heart size is enlarged. Elevation of the right hemidiaphragm is noted. There are some chronic-appea ring lung changes seen. Mild vascular engorgement noted. The film was of suboptimal inspiration, al though the patient was unable to take a deep breath. IMPRESSION: Essentially stable exam. Cardiomegaly with chronic interstitial change in the right base with elevat ed right hemidiaphragm and mild vascular engorgement. POS: [facility]
[2019-07-03] MEDS ORDERED: Senokot S 8.6-50 MG TAB PO PRN (09:55)
[2019-07-03] MEDS ORDERED: Sodium Chloride 0.9% 1,000 ML IV SCH (10:15)
[2019-07-03 10:21] LABS: Troponin I 0.318 ng/mL (< 0.028)
--- NOTE | 2019-07-03 10:26 | CT ---
CT HEAD WITHOUT CONTRAST: INDICATIONS: Altered mental status. COMPARISON: 05/26/2019 FINDINGS: There is parenchymal volume loss with compensatory dilatation of the ventricular system. This is sim ilar appearing. Moderate chronic microvascular ischemic disease of the cerebral white matter is pres ent. There is no acute intracranial hemorrhage or mass effect. 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 IMPRESSION: Stable chronic findings without acute intracranial hemorrhage or mass effect. POS: [facility]
[2019-07-03] MEDS ORDERED: Ondansetron ODT 4 MG TAB PO PRN (10:54)
[2019-07-03] MEDS ORDERED: Ondansetron PF 4 MG/2 ML Vial IVP PRN (10:54)
[2019-07-03] MEDS: Acetaminophen 325 MG TAB PO PRN (11:13)
[2019-07-03 11:22] VITALS: BMI 26.9
--- NOTE | 2019-07-03 12:05 | HP ---
PRIMARY CARE PHYSICIAN: Tc Mancini MD CHIEF COMPLAINT: Altered mental status, shortness of breath. HISTORY OF PRESENT ILLNESS: Mr. Isabel is an 83-year-old gentleman, seen at [facility] in the ER after he was brought in by EMS. reports that she try to get him up this morning as he sleeps pretty deeply on his medications and has some urinary incontinence, so she typically gets him up several when she gets up so he can urinate and go back to bed. She reports that he refused to get up this morning, was not answering questions appropriately. He had made a gurgling kind of weird noise in his throat and because of the altered mental status, she called 911 and had EMS come and evaluate. He was a sepsis alert when he got to the ER as he has a history of severe sepsis in the recent past, was seen here in May for similar complaints. Vital signs when he first arrived, blood pressure 147/103, pulse was 106, temperature was also 102, and his saturations were 93 on 3 L of O2. Laboratories in the ER, sodium 140, potassium 4.3, BUN 50, and creatinine 2.05, these are elevated since the last time they were checked here. BUN in June 02, 2018 was 37 and creatinine was 1.88. His first troponin here was 0.082 with no EKG changes. White blood cell count 13.3, and urine was turbid, 3+ blood, leukocyte esterase at 500, white blood cells greater than 50, and 1+ bacteria. The patient was given a dose of Levaquin and azithromycin and 2 L of fluid. The patient perked up. Vital signs improved. During exam in the emergency room for admission, he was sitting up, eating his breakfast and answering questions and did not appear in any distress. He does report some chest pain. Reports that he is little more short of breath today than he normally is and has been coughing for the last 2 days. He does report some dysuria as well. On his admission on 05/26/2019 and discharged on 06/02/2019, discharged with severe sepsis, acute on chronic kidney disease, bacteremia, acute on chronic stage 3 kidney disease, acute metabolic encephalopathy, and DVT and at that time, he was started on Eliquis. He was to take 10 mg 2 times a day until 06/06 and then now he is on 5 mg 2 times a day. He was also sent home on Zyvox 600 mg 2 times a day for 5 days. reports that they did follow up with Dr. Wood and that they decided against doing any lithotripsy for the nephrolithiasis that he has. The patient also has history of chronic back pain and sees a pain specialist, Dr. Knutson. He reports that he has not been able to see him lately because Dr. Knutson is out of the office currently. Chest x-ray shows possible infiltrate on the chest x-ray. The patient will be admitted to a telemetry unit for further medical management. REVIEW OF SYSTEMS: The patient reports fever. Reports some increased shortness of breath, cough, some dysuria, and chronic back pain. All other systems reviewed and negative unless mentioned in the HPI. PAST MEDICAL HISTORY: Hiatal hernia, reflux disease, hypothyroidism, dyslipidemia, prostate cancer, status post radiation therapy and surgery, also severe sepsis, nephrolithiasis. PAST SURGICAL HISTORY: Lumbar surgery, aortic repair, sinus surgery, cholecystectomy, and prostate surgery. SOCIAL HISTORY: No history of tobacco abuse, alcohol use, or recreational drug use. FAMILY HISTORY: Family history pertinent for premature coronary artery disease. CODE STATUS: I discussed with the patient and , he is a full code. ALLERGIES: TO IMIPENEM, CEFEPIME, ADHESIVE TAPE, AND PENICILLINS. HOME MEDICATIONS: Home medications, which still need to be verified; 1. Lipitor 10 mg p.o. at bedtime. 2. Celebrex 200 mg p.o. daily. 3. Cymbalta 60 mg p.o. daily. 4. Folic acid 1 mg p.o. daily. 5. Neurontin 600 mg p.o. t.i.d. 6. Levothyroxine 75 mcg p.o. daily. 7. Reglan 10 mg p.o. daily. 8. Morphine sulfate tablet ER q.8 as needed for pain. 9. Multivitamin one tablet p.o. daily. 10. Protonix 40 mg p.o. b.i.d. 11. Propranolol 10 mg p.o. b.i.d. 12. Vitamin B complex one cap p.o. at bedtime. 13. Eliquis 5 mg p.o. b.i.d. 14. Lasix 40 mg p.o. daily. PHYSICAL EXAMINATION: VITAL SIGNS: Blood pressure 132/77, pulse is 84, respirations 21, temperature is 99.5, and pO2 saturations are 95% on 2 L. CONSTITUTIONAL: The patient appears nontoxic. He is alert and oriented to person, place, and time. He is sitting up, eating breakfast. HEENT: Head is atraumatic and normocephalic. Eyes; pupils are equally round and reactive to light. Eyelids are normal to inspection. ENT; mouth exam is normal. Mucous membranes are moist. NECK: Trachea is midline. No tenderness. RESPIRATORY/CHEST: Breath sounds with diffuse rhonchi, it clears with cough. Chest movement is symmetrical. CARDIOVASCULAR: Regular rate and rhythm. Heart sounds are normal. ABDOMEN: Diffusely tender, soft. No rebound. Bowel sounds are heard. BACK: Normal inspection. Normal range of motion. No tenderness. EXTREMITIES: Upper extremity; motor strength is normal. Sensation is intact. Radial pulses are normal. Lower extremity; normal inspection. Normal range of motion. Pedal pulses are present and normal. No edema is noted. NEURO: The patient is oriented to person, place, and time. Speech is normal. SKIN: Warm, dry, normal in color. PSYCH: Has a normal affect. DIAGNOSTIC DATA: EKG in the emergency room showed sinus tach, beats per minute 105. Complete left bundle-branch block. ST segments are normal. T-waves are normal. Impression, nonspecific EKG is unchanged from the last one when compared. Chest x-ray shows cardiomegaly and mild congestive heart failure, chronic changes. ASSESSMENT AND PLAN: 1. Sepsis, possible infiltrate on the chest x-ray. Urine with 1+ bacteria and blood. Recent history of sepsis. Urine culture sent off, blood cultures. The patient was given erythromycin and levofloxacin, which will be continued on renal dose. The patient got 2 L of fluid in the ER. We will gently rehydrate with normal saline at 50 mL per hour. The patient sees Dr. Castrejon as an outpatient. We will consult. We will recheck labs in the morning. 2. Chest pain. Initial troponin was in the indeterminate range. These will be trended. Second troponin at the time of dictation at 0.318. We have added a Cardiology consult. 3. Urinary tract infection with history of nephrolithiasis. Antibiotics have been ordered and cultures have been ordered. 4. History of chronic back pain. We will restart home medications. 5. Recent deep venous thrombosis, diagnosed and we will continue the Eliquis. 6. Dyslipidemia. We will continue the Lipitor. 7. There is need for gastrointestinal and deep venous thrombosis prophylaxis as the patient is already on Protonix and Eliquis, which we will restart. 8. The patient's case to be discussed with Dr. Mendosa for further recommendations. 9. Hospital course depending on clinical findings. Job ID: [id number]
[2019-07-03 13:53] LABS: Troponin I 0.424 ng/mL (< 0.028)
[2019-07-03 15:07] LABS: Hemoglobin 11.3 g/dL (14.0-18.0); Platelet Count 273 thou/uL (130-400)
--- NOTE | 2019-07-03 15:23 | HP ---
PRIMARY CARE PROVIDER: Tc Mancini. The patient referred to the Hospitalist Service by [facility] for sepsis. This morning, the patient was difficultly arousable, was not responsive to his 's urging him to get up. 911 was called. He was brought to the emergency room. He was found to have a non-CCU sepsis and referred to the Hospitalist Service. PAST MEDICAL HISTORY: Pertinent only for dyslipidemia, hypothyroidism. He has a chronic kidney disease stage 3. He has a complication of acute renal failure a couple of decades back. He does have a history of sepsis in the recent past from urinary tract infection. He has nephrolithiasis. ALLERGIES: PERTINENT ALLERGY IS TO CEFEPIME, PENICILLIN, PRIMAXIN. REVIEW OF SYSTEMS: GENERAL: He denies any chest pain or shortness of breath after he woke up in the emergency room. He has had no orthopnea. RESPIRATION: No cough, wheezing, or asthma. GASTROINTESTINAL: No nausea, vomiting, diarrhea, or constipation. GENITOURINARY: After he woke up, he did have difficulty initiating his urine and dysuria. He thought that the urine was off color. PHYSICAL EXAMINATION: GENERAL: He is currently awake, oriented, but according to witnesses, he is a little loose and not his normal self mentally. VITAL SIGNS: Blood pressure is 134/61, pulse 80, respirations 17, temperature 97.7. In the emergency room, he was mildly tachycardic initially, temperature was a 102. NECK: He has no neck vein distention. CHEST: He has scattered rhonchi, but no focal findings. Breath sounds are adequate. HEART: Has regular rate and rhythm without murmurs or gallops. ABDOMEN: Soft. Bowel sounds are normal. There is no hepatosplenomegaly. No mass. No rebound. EXTREMITIES: Reveal trace edema. No cyanosis or clubbing. IMAGING STUDIES: EKG reveals sinus tachycardia with complete left bundle branch block. Chest x-ray is unremarkable for an acute infiltrate, heart failure. LABORATORY DATA: Urine is positive for greater than 50 red cells per high-powered field, greater than 50 white cells per high-powered field. Creatinine is 2.07, which is only minimally increased from his baseline of 1.9, BUN is 50, sodium is 140, potassium is 4.3, CO2 is 31, lactic acid is 1.9. Liver function tests normal. His troponin is 0.082, 0.318, 0.424. ADMITTING DIAGNOSES: Sepsis syndrome, urinary tract infection, chronic kidney disease stage 3, myocardial infarction x2, complete left bundle branch block, nephrolithiasis, dyslipidemia, and hypothyroidism. PLAN: I have reviewed his admitting orders and his old lab. His previous urinary tract infection was coagulase negative Staph [id number] in 2/2 cultures. I have discontinued the azithromycin and started him on clindamycin 900 t.i.d. due to his allergy to penicillin and cephalosporins. We will continue his Levaquin. Continue IV fluids. Dr. Mendez, Cardiology has been consulted for the type 2 myocardial infarction. He is currently awake, alert. Vital signs are stable. He will be followed closely in the telemetry unit at this time. Job ID: [id number]
--- NOTE | 2019-07-03 15:58 | CON ---
DATE OF CONSULTATION: 07/03/2019 REASON FOR CONSULTATION: Elevated troponins. PRIMARY LAB RN: Meng Adair MD. HISTORY OF PRESENT ILLNESS: Mr. Isabel is a pleasant 83-year-old white gentleman, who comes to the hospital for altered mentation. He was brought in by EMS. His called 911 as he was very sleepy this morning, was refusing to get up, not answering questions appropriately, so 911 was called. He was brought in somewhat altered, had a temperature of a 102, tachycardic with saturations at 93% on 3 L, so he was admitted for what appeared to be septic type picture, thought to be secondary to urinary tract infection. He was admitted and troponins were drawn and they were positive, so Cardiology has been consulted for this. Mr. Isabel in my evaluation is doing much better. He is awake. He is conversant and he tells me he has not had any chest pain, tightness, or pressure that he can recall. PAST MEDICAL HISTORY: 1. Hiatal hernia. 2. GERD. 3. Hypothyroidism. 4. Hyperlipidemia. 5. Prostate cancer. 6. Nephrolithiasis. 7. Urosepsis in the past. 8. DVT diagnosed a month ago, on anticoagulation since then with Eliquis. PAST SURGICAL HISTORY: 1. Lumbar surgery. 2. Emergent patch repair of an iatrogenic aortic injury that he sustained during a procedure to address his back. This was about 15 years ago. 3. Sinus surgery. 4. Cholecystectomy. 5. Prostate surgery. SOCIAL HISTORY: No alcohol, tobacco, or drugs. FAMILY HISTORY: Noncontributory. OUTPATIENT MEDICATIONS: Include: 1. Lipitor. 2. Celebrex. 3. Cymbalta. 4. Folic acid. 5. Neurontin. 6. Levothyroxine 75 mcg a day. 7. Reglan. 8. Morphine sulfate extended release p.r.n. for pain. 9. Multivitamin daily. 10. Protonix. 11. Propranolol 10 mg b.i.d. 12. Vitamin B complex. 13. Eliquis 5 mg b.i.d. 14. Lasix 40 mg a day. ALLERGIES: 1. IMIPENEM. 2. CEFEPIME. 3. ADHESIVE TAPE. 4. PENICILLIN. REVIEW OF SYSTEMS: A 12-point review of systems was done and all was negative unless stated in the history of present illness. PHYSICAL EXAMINATION: VITAL SIGNS: Temperature 97.8, pulse 71, respiratory rate 17, sat 95% on 3 L nasal cannula, blood pressure . GENERAL: Awake, alert, oriented to person and place, difficulty with time, in no distress. HEENT: Normocephalic, atraumatic. NECK: Supple. LUNGS: Clear. CARDIOVASCULAR: S1 and S2. No S3 or S4. There is a grade 2/6 systolic murmur at the right sternal border. ABDOMEN: Soft. Positive bowel sounds. EXTREMITIES: Trace edema. SKIN: Warm and dry. LABORATORY DATA: Laboratory work was reviewed. CBC with a white count of 13; hemoglobin of 13, now down to 11; hematocrit 40; platelet count 302. Chemistries with a BUN of 50, creatinine of 2.07. Troponin was 0.08, then 0.31, then 0.42. Albumin of 3.7. UA; turbid, 3+ blood, 500 leukocyte esterase, more than 50 white cells, more than 50 red cells, 1+ bacteria. ASSESSMENT: 1. Type 2 [employer] type of myocardial infarction, demand ischemia. 2. Urinary tract infection. 3. Altered mentation from urinary tract infection, improved now. PLAN: 1. Continue conservative therapy. 2. No plan on heart catheterization. 3. Echocardiogram was difficult to see LV function, but it seemed to be mildly depressed. If LV function is a concern, would do a MUGA scan. At this time, urosepsis is the main issue. 4. Continue Eliquis for history of DVT which was diagnosed on admission just about a month ago recently. Thank you for letting us to participate in the care of your patient. We will follow. Job ID: [id number]
[2019-07-03] MEDS ORDERED: Propranolol 10 MG TAB PO PRN (16:21)
--- NOTE | 2019-07-03 17:07 | PRG ---
DATE OF SERVICE: 07/03/2019 SUBJECTIVE: Jeffrey Isabel presented to the emergency room with weakness and shortness of breath this morning. His could get him to get out of bed. He was found to have a right lower lobe infiltrate. Subsequently, he has been admitted. He had no symptoms leading up to this. He was febrile to 102 in the emergency room. PAST MEDICAL HISTORY: Remarkable for; 1. Chronically paralyzed right hemidiaphragm. 2. History of aortic rupture with lumbar disk surgery leading to respiratory failure, tracheostomy with prolonged mechanical ventilation. 3. Acute renal failure, dialysis for several months and 6 months in the hospital. He eventually recovered. 4. History of chronic back pain. 5. History of chronic opioid use. 6. Weakness and deconditioning. Despite multiple conversations in the office, he has been resistant to the idea of exercise. 7. Lipid disorder. 8. Hypothyroidism. 9. Chronic kidney disease. 10. History of recent DVT. 11. History of swallowing dysfunction. MEDICATIONS: 1. Lipitor. 2. Celebrex. 3. Cymbalta. 4. Folate. 5. Gabapentin. 6. Synthroid. 7. Reglan. 8. Protonix. 9. Zyvox. 10. Apixaban. 11. Lasix. FAMILY HISTORY: Negative for lung disease in early age. REVIEW OF SYSTEMS: Otherwise, negative. PHYSICAL EXAMINATION: VITAL SIGNS: He is afebrile. Heart rate 71, respiratory rate 17, oximetry is 95%, blood pressure 120/57. HEENT: Pupils are equal. Sclerae are anicteric. NECK: Supple. LUNGS: Remarkable for mild rhonchi. HEART: Regular rhythm. S1, S2 normal. ABDOMEN: Soft and nontender. EXTREMITIES: Without clubbing, cyanosis, or edema. LABORATORY AND DIAGNOSTIC DATA: White count 13.3, hemoglobin 13.1, platelets 302,000. Sodium 140, potassium 4.3, chloride 100, bicarb 31, BUN 50, and creatinine 2.07. His creatinine was 1.8 a month ago. Chest radiograph shows chronically elevated right hemidiaphragm, perhaps increase in vascular markings and interstitial markings of right base. IMPRESSION AND PLAN: 1. Pneumonia. 2. History of aspiration, swallowing dysfunction. He probably needs a barium swallow. 3. Wvyka-bd-gvzlxsp kidney disease with probable intravascular volume depletion. 4. Paralyzed right hemidiaphragm. 5. Weakness and deconditioning. 6. History of renal failure and prolonged respiratory failure after an aortic rupture with lumbar diskectomy. We will continue to follow with the other physicians caring for him. I agree with current management. I would anticipate to be in the hospital for 5 days, this is based on my experience with him with past hospitalizations. He had an echocardiogram done a little over a month ago, which showed a technically difficult study. His ejection fraction could not be quantitated. I suppose there could be a component of cardiogenic pulmonary edema this admission. His echocardiogram probably needs to be repeated. Job ID: [id number]
[2019-07-03] MEDS: Aspirin 81 mg Enteric Coated Tablet PO SCH (20:25)
[2019-07-03] MEDS: Apixaban 5 MG TAB PO SCH (20:25)
[2019-07-03] MEDS ORDERED: Atorvastatin Calcium 10 MG TAB PO SCH (21:00)
[2019-07-03] MEDS: Clindamycin/D5W 900 MG in Premix Bag 1 BAG IVPB SCH (21:03)
[2019-07-03] MEDS ORDERED: Morphine 2 MG/ML SYRINGE SLOW IVP SCH (21:30)
[2019-07-04 04:21] LABS: #Eosinphils 0.1 thou/uL (0.0-0.7); #Lymphocytes 1.1 thou/uL (1.20-3.40); #Monocytes 1.2 thou/uL (0.11-0.59); #Neutrophils 10.5 thou/uL (1.40-6.50); %Basophils 0.1 % (0.0-1.0); %Eosinophils 0.5 % (0.0-10.0); %Lymphocytes 8.6 % (21.0-51.0); %Monocytes 9.3 % (0.0-10.0); %Neutrophils 81.4 % (42.0-75.0); Mean Corpuscular HGB CONC 32.5 g/dL (32.0-36.0); Mean Corpuscular Hemoglobin 29.3 pg (27.0-31.0); Mean Corpuscular Volume 90.1 fL (78.0-98.0); Mean Platelet Volume 6.4 fL (7.4-10.4); Platelet Count 259 thou/uL (130-400); RBC Distribution Width 14.1 % (11.5-14.5); Red Blood Cell (RBC) Count 3.74 mill/uL (4.70-6.10); White Blood Cell (WBC) Count 12.9 thou/uL (4.8-10.8)
[2019-07-04 04:43] LABS: ALT (SGPT) 16 U/L (8-55); AST (SGOT) 22 U/L (5-34); Alkaline Phosphatase 78 U/L (40-150); Anion Gap 10 mmol/L (10-20); BUN (Urea Nitrogen) 37 mg/dL (8.4-25.7); Bilirubin, Total 0.6 mg/dL (0.2-1.2); Calc. Creatinine Clearance 39 mL/min (70-130); Calcium 9.1 mg/dL (7.8-10.44); Carbon Dioxide 30 mmol/L (23-31); Chloride 104 mmol/L (98-107); Estimated GFR-MDRD 41; Globulin 3.1 g/dL (2.4-3.5); Glucose 98 mg/dL (83-110); Potassium 4.2 mmol/L (3.5-5.1); Protein, Total 6.1 g/dL (5.8-8.1); Sodium 140 mmol/L (136-145)
[2019-07-04] MEDS: Clindamycin/D5W 900 MG in Premix Bag 1 BAG IVPB SCH ×3 (05:16→21:08)
[2019-07-04] MEDS: Levothyroxine Sodium 75 MCG TAB PO SCH (05:17)
[2019-07-04] MEDS ORDERED: Sodium Chloride 0.9% 1,000 ML IV SCH (05:45)
[2019-07-04] MEDS ORDERED: Azithromycin 500 MG in Sodium Chloride 0.9% 250 ML 250 ML IVPB SCH (08:00)
[2019-07-04] MEDS: DULoxetine 60 MG CAP PO SCH (08:14)
[2019-07-04] MEDS: Metoclopramide HCl 10 MG TAB PO SCH (08:14)
[2019-07-04] MEDS: Famotidine 20 MG TAB PO SCH (08:14)
[2019-07-04] MEDS: Apixaban 5 MG TAB PO SCH ×2 (08:14→21:09)
--- NOTE | 2019-07-04 08:56 | PDOC.CPN ---
- Subjective Date: 07/04/19 Time: 09:02 Interval history: No current complaints. Pt lucid this am. No complaints - Objective Allergies/Adverse Reactions: Allergies Allergy/AdvReac Type Severity Reaction Status Date / Time cefepime HCl [From Maxipime] Allergy Intermediate Rash Verified 07/03/19 11:01 cilastatin sodium Allergy Intermediate Rash Verified 07/03/19 11:01 [From Primaxin] Penicillins Allergy Intermediate Rash Verified 07/03/19 11:01 adhesive Allergy Verified 07/03/19 11:01 imipenem [From Primaxin] Allergy Verified 07/03/19 11:01 Visit Medications: Current Medications Acetaminophen (Tylenol) 650 mg PO Q4H PRN PRN Reason: Headache/Fever/Mild Pain (1-3) Last Admin: 07/03/19 11:13 Dose: 650 mg Apixaban (Eliquis) 5 mg PO BID [facility] Last Admin: 07/04/19 08:14 Dose: 5 mg Aspirin (Ecotrin) 81 mg PO HS [facility] Last Admin: 07/03/19 20:25 Dose: 81 mg Atorvastatin Calcium (Lipitor) 10 mg PO HS [facility] Last Admin: 07/03/19 20:25 Dose: 10 mg Duloxetine HCl (Cymbalta) 60 mg PO DAILY [facility] Last Admin: 07/04/19 08:14 Dose: 60 mg Famotidine (Pepcid) 20 mg PO DAILY [facility] Last Admin: 07/04/19 08:14 Dose: 20 mg Levofloxacin 750 mg/ Device 150 mls @ 100 mls/hr IVPB Q48H JANICE Clindamycin Phosphate/Dextrose (900 mg/ Device) 50 mls @ 100 mls/hr IVPB Q8HR [facility] Last Admin: 07/04/19 05:16 Dose: 50 mls Sodium Chloride (Normal Saline 0.9%) 1,000 mls @ 50 mls/hr IV .Q20H [facility] Last Admin: 07/04/19 05:43 Dose: 1,000 mls Levothyroxine Sodium (Synthroid) 75 mcg PO 0600 [facility] Last Admin: 07/04/19 05:17 Dose: 75 mcg Metoclopramide HCl (Reglan) 10 mg PO DAILY [facility] Last Admin: 07/04/19 08:14 Dose: 10 mg Pantoprazole Sodium (Protonix) 40 mg PO BID [facility] Last Admin: 07/04/19 08:14 Dose: 40 mg Propranolol HCl (Inderal) 10 mg PO BIDPRN PRN PRN Reason: tremors Senna/Docusate Sodium (Senokot S) 2 tab PO BIDPRN PRN PRN Reason: Constipation Sodium Chloride (Flush - Normal Saline) 10 ml IVF PRN PRN PRN Reason: Saline Flush Vital Signs & Weight: Vital Signs Temp Pulse Resp BP Pulse Ox 07/04/19 07:00 97.5 F L 84 16 164/82 H 96 07/04/19 03:19 97.6 F 88 18 171/90 H 98 Weight 177 lb 0.499 oz - Physical Exam General: alert & oriented x3, appears well, no apparent distress, cachectic, other Cardiac: regular rate and rhythm, regular rate, regular rhythm Lungs: clear to auscultation Abdomen: unremarkable Musculoskeletal: normal range of motion - Labs Result Diagrams: 07/04/19 03:50 07/04/19 03:50 Troponin/CKMB CK-MB (CK-2) 2.2 ng/mL (0-6.6) 07/03/19 06:48 Troponin I 0.424 ng/mL (< 0.028) H* 07/03/19 12:56 - Assessment/Plan Assessment/Plan: Type 2 SC Sepsis, EU Previous iatrogenis aorta injury RI CV status stable No new issues More lucid today BC pending On Abx On NOAC, ASA Add coreg, statin No other recommendations
[2019-07-04] MEDS: Carvedilol 3.125 MG TAB PO SCH ×2 (09:43→21:09)
--- NOTE | 2019-07-04 10:39 | PRG ---
DATE OF SERVICE: 07/04/2019 SUBJECTIVE: The patient is doing about the same. He is short of breath after getting out of the shower. OBJECTIVE: VITAL SIGNS: Temperature 97.5, pulse 84, respirations 18, O2 saturation 97% on 3 L, blood pressure 164/82. HEENT: Unremarkable. NECK: No JVD. LUNGS: Coarse breath sounds. CARDIAC: S1 and S2. Slightly tachycardic. ABDOMEN: Soft. EXTREMITIES: No edema. LABORATORY DATA: Sodium 140, BUN 37, creatinine 1.6, glucose 98. White blood cell count 12.9, hematocrit 33.7, and platelet count 259. ASSESSMENT: 1. Suspected aspiration pneumonia. 2. Acute on chronic kidney disease with intravascular volume depletion. 3. History of paralyzed right diaphragm. PLAN: He is being treated with antibiotics and his labs are being watched closely. We will continue to follow with you. Job ID: [id number]
[2019-07-04] MEDS: Sodium Chloride 0.9% 1,000 ML IV SCH (11:09)
--- NOTE | 2019-07-04 11:51 | RAD ---
RADIOGRAPH CHEST 1 VIEW: DATE: 07/04/2019 HISTORY: 83-year-old male with dyspnea COMPARISON: 07/03/2019 FINDINGS: There is no evidence of consolidation, pulmonary edema, or pneumothorax. The lateral costophrenic ang les are not effaced. Lung volumes are low, especially the right lung. There is a significantly elevated right hemidiaphragm which was also present on previous chest radiograph of 06/10/2016. No int erval change overall. IMPRESSION: 1. No acute pulmonary findings. 2. 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
--- NOTE | 2019-07-04 14:44 | RAD ---
MODIFIED BARIUM SWALLOW: Date: 07/04/19 INDICATION: Pneumonitis due to inhalation of food. Dysphagia. Feeding difficulties. FINDINGS/IMPRESSION: Patient given different consistencies of barium under fluoroscopic observation. Swallowing dysfunction is noted. There is premature spillage and pooling. Laryngeal penetration was n oted with all consistencies. Mild aspiration with thin liquids. See speech pathologist's recommendation. POS: JOSE
[2019-07-04] MEDS: Atorvastatin Calcium 10 MG TAB PO SCH (21:09)
[2019-07-04] MEDS: Aspirin 81 mg Enteric Coated Tablet PO SCH (21:09)
[2019-07-04] MEDS: Docusate 100 MG CAP PO SCH (21:09)
[2019-07-04] MEDS: Saccharomyces boulardii 250 MG CAP PO SCH (21:09)
--- NOTE | 2019-07-04 23:14 | PDOC.HOSPP ---
- Subjective Encounter Date: 07/04/19 Encounter Time: 10:45 Subjective: Patient seen and examined for Sepsis/Aspiration Pneumonia. SOB gradually improving. Cough +. No other complaints. No overnight events - Objective Vital Signs & Weight: Vital Signs (12 hours) Temp Pulse Resp BP Pulse Ox 07/04/19 22:37 97 07/04/19 19:30 97.8 F 110 H 18 173/79 H 99 07/04/19 18:51 98 07/04/19 18:50 98 07/04/19 15:03 98.3 F 93 18 164/87 H 100 07/04/19 14:31 82 16 100 Weight Admit Weight 176 lb 12.972 oz Weight 177 lb 0.499 oz I&O: 07/03/19 07/04/19 07/05/19 06:59 06:59 06:59 Intake Total 950 Output Total 550 825 Balance 400 -825 Result Diagrams: 07/04/19 03:50 07/04/19 03:50 Radiology Reviewed by me: Yes (CXR - Pneumonia) EKG Reviewed by me: Yes (Tele SR) Hospitalist ROS - Review of Systems Cardiovascular: denies: chest pain, palpitations, orthopnea, paroxysmal noc. dyspnea, edema, light headedness, other Gastrointestinal: denies: nausea, vomiting, abdominal pain, diarrhea, constipation, melena, hematochezia, other - Medication Medications: Active Medications Generic Name Dose Route Start Last Admin Trade Name Freq PRN Reason Stop Dose Admin Acetaminophen 650 mg 07/03/19 09:55 07/03/19 11:13 Tylenol PO 650 mg Q4H PRN Administration Headache/Fever/Mild Pain (1-3) Albuterol/Ipratropium 3 ml 07/04/19 10:30 07/04/19 22:37 Duoneb NEB 3 ml [id number] JANICE Administration Apixaban 5 mg 07/03/19 21:00 07/04/19 21:09 Eliquis PO 5 mg BID JANICE Administration Aspirin 81 mg 07/03/19 21:00 07/04/19 21:09 Ecotrin PO 81 mg HS JANICE Administration Atorvastatin Calcium 10 mg 07/04/19 21:00 07/04/19 21:09 Lipitor PO 10 mg HS JANICE Administration Carvedilol 3.125 mg 07/04/19 09:00 07/04/19 21:09 Coreg PO 3.125 mg BID JANICE Administration Docusate Sodium 100 mg 07/04/19 21:00 07/04/19 21:09 Colace PO 100 mg BID JANICE Administration Duloxetine HCl 60 mg 07/04/19 09:00 07/04/19 08:14 Cymbalta PO 60 mg DAILY JANICE Administration Famotidine 20 mg 07/04/19 09:00 07/04/19 08:14 Pepcid PO 20 mg DAILY JANICE Administration Clindamycin Phosphate/Dextrose 50 mls @ 100 mls/hr 07/03/19 22:00 07/04/19 21 :08 900 mg/ Device IVPB 50 mls Q8HR JANICE Administration Sodium Chloride 1,000 mls @ 30 mls/hr 07/04/19 10:30 07/04/19 11:09 Normal Saline 0.9% IV Not Given .Q24H JANICE Levothyroxine Sodium 75 mcg 07/04/19 06:00 07/04/19 05:17 Synthroid PO 75 mcg 0600 JANICE Administration Metoclopramide HCl 10 mg 07/04/19 09:00 07/04/19 08:14 Reglan PO 10 mg DAILY JANICE Administration Pantoprazole Sodium 40 mg 07/03/19 21:00 07/04/19 21:09 Protonix PO 40 mg BID JANICE Administration Saccharomyces Boulardii 250 mg 07/04/19 21:00 07/04/19 21:09 Florastor PO 250 mg HS JANICE Administration - Exam General Appearance: ill appearing Neck: supple, no JVD Heart: RRR, no gallops, no rubs, normal peripheral pulses Respiratory: no wheezes, rales, rhonchi Respiratory - other findings: dec AE at bases Gastrointestinal: soft, non-tender, non-distended, normal bowel sounds Extremities: no cyanosis, no clubbing Psychiatric: normal affect, A&O x 3 Hosp A/P - Plan IMPRESSION: Sepsis due to Aspiration Pneumonia Gen weakness Recent hospitalization for Bacteremia/DVT Chronic resp failure on home O2 Type 2 MT Swallow dysfunction h/o paralysed hemidiaphragm PLAN: Cont Levaquin/Clindamycin Consult [employer] Barium swallow PT/OT Cont anticoagulation Cont other meds as above Cont Pulse ox AM labs
[2019-07-05 05:41] LABS: #Eosinphils 0.1 thou/uL (0.0-0.7); #Lymphocytes 1.1 thou/uL (1.20-3.40); #Monocytes 0.8 thou/uL (0.11-0.59); #Neutrophils 8.2 thou/uL (1.40-6.50); %Basophils 0.3 % (0.0-1.0); %Eosinophils 0.6 % (0.0-10.0); %Lymphocytes 10.7 % (21.0-51.0); %Monocytes 7.8 % (0.0-10.0); %Neutrophils 80.6 % (42.0-75.0); Mean Corpuscular HGB CONC 32.3 g/dL (32.0-36.0); Mean Corpuscular Hemoglobin 28.8 pg (27.0-31.0); Mean Corpuscular Volume 89.2 fL (78.0-98.0); Mean Platelet Volume 6.6 fL (7.4-10.4); Platelet Count 263 thou/uL (130-400); Red Blood Cell (RBC) Count 4.17 mill/uL (4.70-6.10); White Blood Cell (WBC) Count 10.1 thou/uL (4.8-10.8)
[2019-07-05] MEDS: Clindamycin/D5W 900 MG in Premix Bag 1 BAG IVPB SCH ×3 (06:01→21:04)
[2019-07-05] MEDS: Levothyroxine Sodium 75 MCG TAB PO SCH (06:02)
[2019-07-05 06:07] LABS: ALT (SGPT) 16 U/L (8-55); AST (SGOT) 18 U/L (5-34); Albumin 3.2 g/dL (3.4-4.8); Alkaline Phosphatase 76 U/L (40-150); Anion Gap 12 mmol/L (10-20); BUN (Urea Nitrogen) 24 mg/dL (8.4-25.7); Bilirubin, Total 0.5 mg/dL (0.2-1.2); Calc. Creatinine Clearance 45 mL/min (70-130); Calcium 9.2 mg/dL (7.8-10.44); Carbon Dioxide 26 mmol/L (23-31); Chloride 105 mmol/L (98-107); Estimated GFR-MDRD 49; Globulin 3.1 g/dL (2.4-3.5); Glucose 111 mg/dL (83-110); Magnesium 1.9 mg/dL (1.6-2.6); Protein, Total 6.3 g/dL (5.8-8.1); Sodium 139 mmol/L (136-145)
[2019-07-05] MEDS: Metoclopramide HCl 10 MG TAB PO SCH (08:45)
[2019-07-05] MEDS: DULoxetine 60 MG CAP PO SCH (08:45)
[2019-07-05] MEDS: Apixaban 5 MG TAB PO SCH ×2 (08:45→21:03)
[2019-07-05] MEDS: Carvedilol 3.125 MG TAB PO SCH ×2 (08:45→21:03)
[2019-07-05] MEDS: Famotidine 20 MG TAB PO SCH (08:45)
[2019-07-05] MEDS: Docusate 100 MG CAP PO SCH ×2 (08:46→21:03)
[2019-07-05] MEDS: Sodium Chloride 0.9% 1,000 ML IV SCH (09:51)
[2019-07-05] MEDS: Acetaminophen 325 MG TAB PO PRN (11:46)
--- NOTE | 2019-07-05 13:36 | PRG ---
DATE OF SERVICE: 07/05/2019 SUBJECTIVE: The patient is seen and examined at the bedside. He complains about the back pain. He has chronically, but during this hospitalization, it is worse. His breathing is better. OBJECTIVE: VITAL SIGNS: Blood pressure is 148/80, pulse is 88, temperature is 98.0, respirations 17, O2 saturation is 97% on 2 L by nasal cannula. HEENT: His head is atraumatic and normocephalic. Eyes are PERRLA. Sclerae are nonicteric. Oral mucosa is somewhat dry. NECK: Supple. LUNGS: Breath sounds diminished at both bases with decreased entry at both bases. HEART: S1 and S2 normal. No S3. No S4. ABDOMEN: Soft, nontender, nondistended. Bowel sounds are present. EXTREMITIES: 1+ peripheral edema similar bilaterally. NEUROLOGIC: He follows my commands. He moves his all 4 extremities. LABORATORY DATA: White count of 10.1, hemoglobin 12.0, hematocrit 37.2, platelet count is 263,000. Normal electrolytes. BUN of 24, creatinine 1.39. BNP of 2222.8. Microbiology, no new findings. Two blood cultures, negative. Urine culture, negative. IMPRESSION: 1. Pneumonitis secondary to most likely aspiration. 2. Sepsis. 3. Back pain. 4. Type 2 myocardial infarction. 5. History of paralyzed hemidiaphragm. 6. Chronic respiratory failure, on home O2. 7. Recent hospitalization for bacteremia/deep venous thrombosis. PLAN: Plan is to continue his Levaquin and clindamycin. I will start him on a Lidoderm patch, increase his ambulation. Continue anticoagulants. Continue carvedilol and aspirin. Continue Synthroid and continue DuoNeb. Job ID: [id number]
[2019-07-05] MEDS: Lidocaine 5% Patch TD SCH (14:28)
[2019-07-05] MEDS: Morphine IR 10 MG/5 ML UDCUP PO PRN ×2 (15:11→19:40)
--- NOTE | 2019-07-05 19:22 | PDOC.CPN ---
- Subjective Date: 07/05/19 Time: 19:21 - Objective Allergies/Adverse Reactions: Allergies Allergy/AdvReac Type Severity Reaction Status Date / Time cefepime HCl [From Maxipime] Allergy Intermediate Rash Verified 07/03/19 11:01 cilastatin sodium Allergy Intermediate Rash Verified 07/03/19 11:01 [From Primaxin] Penicillins Allergy Intermediate Rash Verified 07/03/19 11:01 adhesive Allergy Verified 07/03/19 11:01 imipenem [From Primaxin] Allergy Verified 07/03/19 11:01 Visit Medications: Current Medications Acetaminophen (Tylenol) 650 mg PO Q4H PRN PRN Reason: Headache/Fever/Mild Pain (1-3) Last Admin: 07/05/19 11:46 Dose: 650 mg Albuterol/Ipratropium (Duoneb) 3 ml NEB [id number] [facility] Last Admin: 07/05/19 18:05 Dose: 3 ml Albuterol/Ipratropium (Duoneb) 3 ml NEB [id number] PRN PRN Reason: SOB &/or Wheezing Apixaban (Eliquis) 5 mg PO BID [facility] Last Admin: 07/05/19 08:45 Dose: 5 mg Aspirin (Ecotrin) 81 mg PO HS [facility] Last Admin: 07/04/19 21:09 Dose: 81 mg Atorvastatin Calcium (Lipitor) 10 mg PO HS [facility] Last Admin: 07/04/19 21:09 Dose: 10 mg Carvedilol (Coreg) 3.125 mg PO BID [facility] Last Admin: 07/05/19 08:45 Dose: 3.125 mg Docusate Sodium (Colace) 100 mg PO BID [facility] Last Admin: 07/05/19 08:46 Dose: Not Given Duloxetine HCl (Cymbalta) 60 mg PO DAILY [facility] Last Admin: 07/05/19 08:45 Dose: 60 mg Famotidine (Pepcid) 20 mg PO DAILY [facility] Last Admin: 07/05/19 08:45 Dose: 20 mg Levofloxacin 750 mg/ Device 150 mls @ 100 mls/hr IVPB Q48H [facility] Last Admin: 07/05/19 08:46 Dose: 150 mls Clindamycin Phosphate/Dextrose (900 mg/ Device) 50 mls @ 100 mls/hr IVPB Q8HR [facility] Last Admin: 07/05/19 14:28 Dose: 50 mls Sodium Chloride (Normal Saline 0.9%) 1,000 mls @ 30 mls/hr IV .Q24H [facility] Last Admin: 07/05/19 09:51 Dose: Not Given Levothyroxine Sodium (Synthroid) 75 mcg PO 0600 [facility] Last Admin: 07/05/19 06:02 Dose: 75 mcg Lidocaine (Lidoderm 5% Patch) 1 patch TD 1400 [facility] Last Admin: 07/05/19 14:28 Dose: 1 patch Metoclopramide HCl (Reglan) 10 mg PO DAILY [facility] Last Admin: 07/05/19 08:45 Dose: 10 mg Miscellaneous Medication (Lidocaine Patch Removal) 1 each TOP 0200 [facility] Morphine Sulfate (Morphine Ir) 10 mg PO Q4H PRN PRN Reason: Moderate to Severe Pain (4-10) Last Admin: 07/05/19 15:11 Dose: 10 mg Pantoprazole Sodium (Protonix) 40 mg PO BID [facility] Last Admin: 07/05/19 08:45 Dose: 40 mg Propranolol HCl (Inderal) 10 mg PO BIDPRN PRN PRN Reason: tremors Saccharomyces Boulardii (Florastor) 250 mg PO HS [facility] Last Admin: 07/04/19 21:09 Dose: 250 mg Senna/Docusate Sodium (Senokot S) 2 tab PO BIDPRN PRN PRN Reason: Constipation Sodium Chloride (Flush - Normal Saline) 10 ml IVF PRN PRN PRN Reason: Saline Flush Vital Signs & Weight: Vital Signs Temp Pulse Resp BP Pulse Ox 07/05/19 18:05 96 16 97 07/05/19 16:00 98.6 F 100 16 142/81 H 95 07/05/19 14:30 92 14 99 07/05/19 12:00 98.0 F 88 17 148/80 H 97 07/05/19 10:42 90 15 98 07/05/19 08:00 97.7 F 86 16 154/82 H 99 07/05/19 07:52 102 H 18 100 Admit Weight 176 lb 12.972 oz Weight 173 lb 4.533 oz - Physical Exam HEENT: mucus membranes moist Neck: supple neck Cardiac: regular rate and rhythm Lungs: clear to auscultation, normal breath sounds Neuro: coordination normal - Labs Result Diagrams: 07/05/19 05:23 07/05/19 05:23 Troponin/CKMB CK-MB (CK-2) 2.2 ng/mL (0-6.6) 07/03/19 06:48 Troponin I 0.424 ng/mL (< 0.028) H* 07/03/19 12:56 - Assessment/Plan Assessment/Plan: Assessment/Plan: Type 2 TX Sepsis, EU Previous iatrogenis aorta injury RI 07/05 REC No new issues HR stable On Abx, NOAC, coreg, statin I will sign off. Please call with questions CV status stable No new issues More lucid today BC pending On Abx On NOAC, ASA Add coreg, statin No other recommendations
--- NOTE | 2019-07-05 19:29 | PRG ---
DATE OF SERVICE: 07/05/2019 SERVICE: Pulmonary Medicine. INTERVAL HISTORY: The patient indicates that he is about 70% back to baseline. Denies any current chest discomfort, nausea, or vomiting. He has yet to get out of bed because he has been told not to. He does not have an appetite for the mechanically soft food. Otherwise, his cough and sputum production are close to baseline as well. PHYSICAL EXAMINATION: VITAL SIGNS: Afebrile, pulse 100, blood pressure 142/81, respirations 16, saturation 95% on 3 L nasal cannula. GENERAL: The patient is awake and alert, in no apparent distress. LUNGS: There is a reduced air entry. Prolonged expiratory phase and rhonchi are present. I do not appreciate any crackles. HEART: Normal rate and regular. ABDOMEN: Soft, nontender, nondistended. Bowel sounds are positive. MUSCULOSKELETAL: No cyanosis or clubbing. EXTREMITIES: There is trace pitting in the bilateral lower extremities. NEUROLOGIC: Grossly nonfocal. LABORATORY DATA: WBC 10.1, hemoglobin 12.0, platelets 263,000. Creatinine 1.39 and gently downtrending. Basic metabolic profile is unremarkable. BNP 2200, represents a historic high. Troponin is gently uptrending to 0.4. Influenza A and B are negative. Blood cultures x2 and urine culture are unremarkable. IMAGING STUDIES: Chest x-ray demonstrates no acute pulmonary findings. Right hemidiaphragm is extremely elevated suggesting that the right diaphragm is paralyzed. Cardiac silhouette is impressive. No infiltrating disease is seen on the left. ASSESSMENT: 1. Acute on chronic hypoxic respiratory failure. 2. Paralyzed right hemidiaphragm. 3. Acute kidney injury on chronic kidney disease, improving. 4. Acute on chronic hypoxic respiratory failure. DISCUSSION AND PLAN: IV fluids have been interrupted. Antibiotics can be discontinued after a total duration of 5 days. Since he is approaching baseline , we will get an ABG in the morning. If his demonstrates hypercapnia, he may be a candidate for noninvasive ventilator/BiPAP to help with this abnormal diaphragm. Job ID: [id number] [facility]
[2019-07-05] MEDS: Aspirin 81 mg Enteric Coated Tablet PO SCH (21:03)
[2019-07-05] MEDS: Atorvastatin Calcium 10 MG TAB PO SCH (21:04)
[2019-07-05] MEDS: Saccharomyces boulardii 250 MG CAP PO SCH (21:04)
[2019-07-06] MEDS: Lidocaine Patch Removal 1 EACH TOP SCH (01:32)
[2019-07-06] MEDS: Sodium Chloride 0.9% 1,000 ML IV SCH (03:28)
[2019-07-06 03:34] LABS: Actual Bicarbonate (HCO3a) 25.4 mEq/L (22-28); Base Excess (BEa) 0.9 mEq/L (-2.0 to +3.0); CO2 Tension 39.9 mmHg (35.0-45.0); Calcium, Ionized 1.21 mmol/L (1.12-1.30); Carboxyhemoglobin (COHb) 1.1 gm% (0.0-3.0); Hemoglobin (Hb) 11.1 g/dL (14.0-18.0); O2 Tension (PaO2) 82.8 mmHg (> 60.0); Potassium - ABG Lab 3.78 mmol/L (3.70-5.30); pH, Arterial 7.42 (7.35-7.45)
[2019-07-06 03:37] LABS: ALV-art Gradient 66.965 (0-20); Puncture Site RRA
[2019-07-06] MEDS: Morphine IR 10 MG/5 ML UDCUP PO PRN ×4 (03:41→21:54)
[2019-07-06] MEDS: Clindamycin/D5W 900 MG in Premix Bag 1 BAG IVPB SCH ×2 (05:52→15:29)
[2019-07-06] MEDS: Levothyroxine Sodium 75 MCG TAB PO SCH (05:52)
[2019-07-06] MEDS: Famotidine 20 MG TAB PO SCH (10:15)
[2019-07-06] MEDS: Metoclopramide HCl 10 MG TAB PO SCH (10:17)
[2019-07-06] MEDS: Apixaban 5 MG TAB PO SCH ×2 (10:19→21:54)
[2019-07-06] MEDS: Carvedilol 3.125 MG TAB PO SCH ×2 (10:20→21:54)
[2019-07-06] MEDS: Docusate 100 MG CAP PO SCH ×2 (10:21→21:54)
[2019-07-06] MEDS: DULoxetine 60 MG CAP PO SCH (11:21)
--- NOTE | 2019-07-06 14:46 | PRG ---
DATE OF SERVICE: 07/06/2019 SUBJECTIVE: The patient is seen and examined at the bedside. He is sitting on the edge of the bed. During my visit, he is about to have a walking session. His appetite is fair, but it is affected in negative way by the changes we made secondary to his aspiration issues. OBJECTIVE: VITAL SIGNS: Blood pressure is 147/72, pulse is 90, respiratory rate is 22, O2 saturation 96% on 2 L by nasal cannula. HEENT: His pupils are responding to light properly. Sclerae are nonicteric. Oral mucosa is moist. NECK: Supple. LUNGS: Right base with elevated diaphragm and few crackles above the bases and the left lower lobe base is clear. HEART: S1, S2 normal. No S3. No S4. ABDOMEN: Soft, nontender, nondistended. EXTREMITIES: No clubbing, cyanosis, or edema. NEUROLOGIC: He follows my commands. He moves his all 4 extremities. There are no any motor or sensory deficits. LABORATORY DATA: Showed ABGs; pH of 7.42, PO2 of 82.8, pCO2 of 39.9. IMPRESSION: 1. Pneumonitis secondary to aspiration, most likely. 2. Sepsis, resolved. 3. Back pain, chronic with acute exacerbation. 4. Type 2 myocardial infarction. 5. History of paralyzed hemidiaphragm. 6. Chronic respiratory failure on O2 at home. 7. Recent hospitalization for bacteremia/deep venous thrombosis. PLAN: We will switch him to oral Augmentin. We will continue his Lidoderm patch and p.r.n. morphine for the back pain. We will continue PT. We will continue DuoNeb and he should be able to go home in the next 24 to 48 hours. Job ID: [id number]
[2019-07-06] MEDS: Lidocaine 5% Patch TD SCH (15:29)
--- NOTE | 2019-07-06 18:22 | PRG ---
DATE OF SERVICE: 07/06/2019 SERVICE: Pulmonary Medicine. INTERVAL HISTORY: The patient indicates he is breathing much better today. He has no complaints of chest discomfort, nausea, or vomiting. He is able to get up and walk up and down the hallways with some assistance. He still feels fairly weak. That being said, he took a big step in the right direction over the last 48 hours. PHYSICAL EXAMINATION: VITAL SIGNS: Afebrile, pulse 100, blood pressure 130/84, respirations 20, and saturation 96% on 3 L nasal cannula. GENERAL: The patient is awake and alert, in no apparent distress. LUNGS: Decent air entry. There is a slightly prolonged expiratory phase. There is decreased air entry on the right compared to the left. HEART: Normal rate, regular. ABDOMEN: Soft, nontender, nondistended. Bowel sounds are positive. MUSCULOSKELETAL: No cyanosis or clubbing. EXTREMITIES: No pitting in the bilateral lower extremities. NEUROLOGIC: Grossly nonfocal. LABORATORY DATA: WBC 10.1 and downtrending, hemoglobin 12.0, platelets 263, 000. PH 7.42, pCO2 40, PO2 82 while wearing 2 L nasal cannula. Creatinine is downtrending to 1.39. Basic metabolic profile and liver function studies are otherwise unremarkable. BNP 2200. Blood cultures x2 and urine culture, unremarkable. IMAGING: Echocardiogram demonstrates a 25% to 30% ejection fraction. Diastolic dysfunction could not be assessed. Mitral regurgitation is noted. Dyskinetic septum is present. ASSESSMENT: 1. Acute on chronic hypoxic respiratory failure. 2. 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 3. Acute kidney injury on chronic kidney disease, improving. 4. 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 DISCUSSION AND PLAN: At this point, the patient is essentially stable for transition out of the hospital assuming that he has enough strength to move at home safely. Pulmonary/Critical Care will continue to follow along while he remains in-house. Dr. Castrejon will assume care in the morning. We can switch him over to oral quinolones on the antibiotics and complete a 5-day duration. IV fluids will be interrupted. Job ID: [id number] MTDD
[2019-07-06] MEDS: Aspirin 81 mg Enteric Coated Tablet PO SCH (21:53)
[2019-07-06] MEDS: Clindamycin 150 MG CAP PO SCH (21:53)
[2019-07-06] MEDS: Atorvastatin Calcium 10 MG TAB PO SCH (21:53)
[2019-07-06] MEDS: Saccharomyces boulardii 250 MG CAP PO SCH (21:54)
[2019-07-07] MEDS: Morphine IR 10 MG/5 ML UDCUP PO PRN ×4 (02:44→19:30)
[2019-07-07] MEDS: Lidocaine Patch Removal 1 EACH TOP SCH (02:44)
[2019-07-07] MEDS: Clindamycin 150 MG CAP PO SCH ×3 (05:11→21:49)
[2019-07-07] MEDS: Levothyroxine Sodium 75 MCG TAB PO SCH (05:11)
[2019-07-07 05:51] LABS: Anion Gap 10 mmol/L (10-20); BUN (Urea Nitrogen) 18 mg/dL (8.4-25.7); Calc. Creatinine Clearance 47 mL/min (70-130); Calcium 9.3 mg/dL (7.8-10.44); Carbon Dioxide 24 mmol/L (23-31); Chloride 105 mmol/L (98-107); Estimated GFR-MDRD 54; Glucose 98 mg/dL (83-110); Potassium 3.8 mmol/L (3.5-5.1); Sodium 135 mmol/L (136-145)
[2019-07-07] MEDS: DULoxetine 60 MG CAP PO SCH (08:57)
[2019-07-07] MEDS: Carvedilol 3.125 MG TAB PO SCH ×2 (08:57→21:49)
[2019-07-07] MEDS: Famotidine 20 MG TAB PO SCH (08:57)
[2019-07-07] MEDS: Apixaban 5 MG TAB PO SCH ×2 (08:57→21:49)
[2019-07-07] MEDS: Docusate 100 MG CAP PO SCH ×2 (08:58→21:49)
[2019-07-07] MEDS: Metoclopramide HCl 10 MG TAB PO SCH (08:58)
--- NOTE | 2019-07-07 13:27 | PDOC.CPN ---
- Subjective Date: 07/07/19 Time: 13:25 Interval history: Feels near BL. No changes - Objective Allergies/Adverse Reactions: Allergies Allergy/AdvReac Type Severity Reaction Status Date / Time cefepime HCl [From Maxipime] Allergy Intermediate Rash Verified 07/03/19 11:01 cilastatin sodium Allergy Intermediate Rash Verified 07/03/19 11:01 [From Primaxin] Penicillins Allergy Intermediate Rash Verified 07/03/19 11:01 adhesive Allergy Verified 07/03/19 11:01 imipenem [From Primaxin] Allergy Verified 07/03/19 11:01 Visit Medications: Current Medications Acetaminophen (Tylenol) 650 mg PO Q4H PRN PRN Reason: Headache/Fever/Mild Pain (1-3) Last Admin: 07/05/19 11:46 Dose: 650 mg Albuterol/Ipratropium (Duoneb) 3 ml NEB [id number] [facility] Last Admin: 07/07/19 11:20 Dose: 3 ml Albuterol/Ipratropium (Duoneb) 3 ml NEB [id number] PRN PRN Reason: SOB &/or Wheezing Apixaban (Eliquis) 5 mg PO BID [facility] Last Admin: 07/07/19 08:57 Dose: 5 mg Aspirin (Ecotrin) 81 mg PO HS [facility] Last Admin: 07/06/19 21:53 Dose: 81 mg Atorvastatin Calcium (Lipitor) 10 mg PO HS [facility] Last Admin: 07/06/19 21:53 Dose: 10 mg Carvedilol (Coreg) 3.125 mg PO BID [facility] Last Admin: 07/07/19 08:57 Dose: 3.125 mg Clindamycin HCl (Cleocin) 300 mg PO Q8HR [facility] Stop: 07/09/19 22:01 Last Admin: 07/07/19 05:11 Dose: 300 mg Docusate Sodium (Colace) 100 mg PO BID [facility] Last Admin: 07/07/19 08:58 Dose: 100 mg Duloxetine HCl (Cymbalta) 60 mg PO DAILY [facility] Last Admin: 07/07/19 08:57 Dose: 60 mg Famotidine (Pepcid) 20 mg PO DAILY [facility] Last Admin: 07/07/19 08:57 Dose: 20 mg Levofloxacin (Levaquin) 750 mg PO 0600 [facility] Stop: 07/09/19 06:01 Last Admin: 07/07/19 05:11 Dose: 750 mg Levothyroxine Sodium (Synthroid) 75 mcg PO 0600 [facility] Last Admin: 07/07/19 05:11 Dose: 75 mcg Lidocaine (Lidoderm 5% Patch) 1 patch TD 1400 [facility] Last Admin: 07/06/19 15:29 Dose: 1 patch Metoclopramide HCl (Reglan) 10 mg PO DAILY [facility] Last Admin: 07/07/19 08:58 Dose: 10 mg Miscellaneous Medication (Lidocaine Patch Removal) 1 each TOP 0200 [facility] Last Admin: 07/07/19 02:44 Dose: Not Given Morphine Sulfate (Morphine Ir) 10 mg PO Q4H PRN PRN Reason: Moderate to Severe Pain (4-10) Last Admin: 07/07/19 08:56 Dose: 10 mg Pantoprazole Sodium (Protonix) 40 mg PO BID [facility] Last Admin: 07/07/19 08:57 Dose: 40 mg Propranolol HCl (Inderal) 10 mg PO BIDPRN PRN PRN Reason: tremors Saccharomyces Boulardii (Florastor) 250 mg PO HS [facility] Last Admin: 07/06/19 21:54 Dose: 250 mg Senna/Docusate Sodium (Senokot S) 2 tab PO BIDPRN PRN PRN Reason: Constipation Sodium Chloride (Flush - Normal Saline) 10 ml IVF PRN PRN PRN Reason: Saline Flush Vital Signs & Weight: Vital Signs Temp Pulse Resp BP Pulse Ox 07/07/19 11:20 81 16 96 07/07/19 08:00 98.7 F 95 18 142/70 H 95 07/07/19 07:47 95 07/07/19 07:45 92 16 95 07/07/19 04:00 98.1 F 79 17 153/81 H 98 07/07/19 02:12 81 16 98 Admit Weight 176 lb 12.972 oz Weight 170 lb 12.8 oz - Medication Contraindications No TIA/ARB reason: Medical contraindication (RI) - Physical Exam General: alert & oriented x3 HEENT: mucus membranes moist Neck: supple neck Cardiac: regular rate and rhythm Lungs: clear to auscultation Neuro: grossly intact Skin: brusing - Labs Result Diagrams: 07/05/19 05:23 07/07/19 04:59 Troponin/CKMB CK-MB (CK-2) 2.2 ng/mL (0-6.6) 07/03/19 06:48 Troponin I 0.424 ng/mL (< 0.028) H* 07/03/19 12:56 - Assessment/Plan Assessment/Plan: CArdiomyopathy of unknown etiology Urosepsis RI New diagnosis of cardiomyopathy Pt has not been seen in office for over 4 yrs Recommend coreg and continued ACT Discussed lifevest with pt. Pt not certain about it. At this point not interested but will discuss with . R/B of lifevest discussed. pt feels tired and weak and not interestred Okj from my standpoint to mi home when ok with primary team. I did state if he changed his mind, we could setup lifevest as OP
[2019-07-07] MEDS: Lidocaine 5% Patch TD SCH (14:45)
--- NOTE | 2019-07-07 16:14 | PRG ---
DATE OF SERVICE: 07/07/2019 SUBJECTIVE: The patient is seen and examined at the bedside. He just talked to Dr. Adair about his echocardiogram findings. He does not have any chest pain. His shortness of breath improved. He participates in physical therapy. OBJECTIVE: VITAL SIGNS: Blood pressure is 142/70, pulse is 95, respiratory rate is 18, O2 saturation is 95% on 2 L by nasal cannula. His temperature is 98.7. HEENT: His head is atraumatic and normocephalic. Eyes are PERRLA. Sclerae are nonicteric. Oral mucosa is moist. NECK: Supple. LUNGS: Bilateral dry crackles in mid portions and lower lobes present. No wheezing. HEART: S1 and S2 normal. No S3. No S4. ABDOMEN: Soft and nontender. EXTREMITIES: No clubbing, cyanosis, or edema. NEUROLOGICAL: He follows my commands. He moves his all 4 extremities. LABORATORY DATA: Sodium of 135, and the rest of chemistry within normal limits. His creatinine is 1.27. Echocardiogram showed LVEF estimated at 25% to 30% and dyskinetic septum. Diastolic function could not be assessed. There was mild mitral regurgitation, mild thickened trileaflet aortic valve, and mild tricuspid regurgitation. IMPRESSION: 1. Acute on chronic respiratory failure. 2. 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 3. Acute kidney injury on chronic kidney disease, improved, now creatinine is back to normal range. 4. 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 5. Type 2 myocardial infarction. 6. Recent hospitalization for bacteremia/deep venous thrombosis. 7. Sepsis resolved. 8. Chronic back pain. PLAN: Plan is to continue Dr. Sommer's recommendation to finish 3 doses of IV Levaquin 750 mg IV piggyback along with clindamycin. Continue his PT. DISCUSSION: The patient was offered LifeVest by Dr. Adair, but he refused that. He wants to recheck his echo in 1 month and see whether this improve to some extent or not. We are going to restart his Lasix in small dose 20 mg twice a day and potassium half dose 15 mEq once a day and we will continue his apixaban, aspirin, DuoNeb, carvedilol, clindamycin, levothyroxine, metoclopramide, pantoprazole, and we will continue PT. Job ID: [id number]
--- NOTE | 2019-07-07 16:27 | PRG ---
DATE OF SERVICE: 07/07/2019 SUBJECTIVE: Mr. Isabel is clinically unchanged. He had a blood gas done this weekend that was normal. OBJECTIVE: VITAL SIGNS: He is afebrile, heart rate is 87, respiratory rate is 18, oximetry is 95% on 2 L, blood pressure 124/77. LUNGS: Clear. HEART: Regular rhythm. ABDOMEN: Soft, nontender. LABORATORY DATA: White count 10.1, hemoglobin 12.0, platelets 263. Electrolytes are normal. Ejection fraction was significantly reduced at 25% to 30%. He will continue to be seen by Cardiology. IMPRESSION: 1. Pneumonia. 2. Paralyzed right hemidiaphragm. 3. Deconditioning with an abnormal echocardiogram, suggesting some of this may have been congestive heart failure. We will continue to follow. Job ID: [id number]
[2019-07-07] MEDS: Gabapentin 300 MG CAP PO SCH (21:48)
[2019-07-07] MEDS: Furosemide 20 MG TAB PO SCH (21:49)
[2019-07-07] MEDS: Aspirin 81 mg Enteric Coated Tablet PO SCH (21:49)
[2019-07-07] MEDS: Atorvastatin Calcium 10 MG TAB PO SCH (21:49)
[2019-07-07] MEDS: Saccharomyces boulardii 250 MG CAP PO SCH (21:49)
[2019-07-08] MEDS: Clindamycin 150 MG CAP PO SCH ×2 (05:15→14:16)
[2019-07-08] MEDS: Levothyroxine Sodium 75 MCG TAB PO SCH (05:15)
[2019-07-08] MEDS: Lidocaine Patch Removal 1 EACH TOP SCH (05:16)
[2019-07-08] MEDS: Gabapentin 300 MG CAP PO SCH ×3 (08:55→21:15)
[2019-07-08] MEDS: Apixaban 5 MG TAB PO SCH ×2 (08:55→21:15)
[2019-07-08] MEDS: Carvedilol 3.125 MG TAB PO SCH ×2 (08:56→21:15)
[2019-07-08] MEDS: DULoxetine 60 MG CAP PO SCH (08:56)
[2019-07-08] MEDS: Famotidine 20 MG TAB PO SCH (08:56)
[2019-07-08] MEDS: Docusate 100 MG CAP PO SCH ×2 (08:56→21:15)
[2019-07-08] MEDS: Furosemide 20 MG TAB PO SCH ×2 (08:56→21:14)
[2019-07-08] MEDS: Metoclopramide HCl 10 MG TAB PO SCH (08:56)
[2019-07-08] MEDS: Morphine IR 10 MG/5 ML UDCUP PO PRN ×3 (09:15→18:25)
[2019-07-08] MEDS: Lidocaine 5% Patch TD SCH (14:18)
--- NOTE | 2019-07-08 16:23 | PRG ---
DATE OF SERVICE: 07/08/2019 SUBJECTIVE: The patient is seen and examined at the bedside. He is on O2. He does not want to have LifeVest. At this time, he would like to go home and come back for echocardiogram testing in 1 month and then if it is not any better, he will probably agree for LifeVest. OBJECTIVE: VITAL SIGNS: Blood pressure is 108/60, pulse is 73, temperature is 97.9, respirations 18, and O2 saturation 95% on room air, that is the latest after the oxygen was taken off. HEENT: His sclerae are nonicteric. Oral mucosa is moist. NECK: Supple. LUNGS: Still there are some crackles at both bases and breath sounds diminished bilaterally at both bases. HEART: S1 and S2, somewhat irregular. No S3. No S4. ABDOMEN: Soft, nontender, nondistended. EXTREMITIES: No clubbing, cyanosis, or edema. NEUROLOGIC: He follows my commands. He moves his all 4 extremities. There are no any motor deficits. LABORATORY DATA: None today. IMPRESSION: 1. Acute on chronic respiratory failure, improved. 2. 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 3. Acute kidney injury on chronic kidney disease, improved, now with creatinine back to normal range. 4. 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 5. Type 2 myocardial infarction. 6. Recent hospitalization for bacteremia/deep venous thrombosis, on oral anticoagulant. 7. Sepsis, resolved. 8. Chronic back pain. PLAN: The patient is going to have his third dose of levofloxacin IV piggyback tomorrow, then he will be discharged home to continue on his oral antibiotics. We will continue his PT. We will continue his Lasix which was restarted yesterday and potassium which was restarted yesterday too. He looks better today and he decided not to have LifeVest for 1 month, and if he is advised that, he will have echocardiogram to follow up on the current one findings and if it is still low LVEF, he will agree for the LifeVest. Job ID: [id number]
--- NOTE | 2019-07-08 16:37 | PRG ---
DATE OF SERVICE: 07/08/2019 Jeffrey Isabel has no new complaints. He is contemplating wearing a LifeVest. He is not short of breath. He has no cough. I just noticed that he was started on Cleocin over the weekend. I would be a little concerned because of his fragile state about the consequences of him getting Cleocin-induced colitis, so I stopped his Cleocin. He will continue with Levaquin. With the course of IV antimicrobial therapy that he got, he probably has inadequately treated pneumonia anyway. He is stable for discharge from my standpoint. Job ID: [id number]
[2019-07-08] MEDS: POTASSIUM CITRATE PO SCH (17:20)
[2019-07-08] MEDS: [UNRECOGNIZED DRUG - OTHER] PO SCH (17:20)
[2019-07-08] MEDS: Aspirin 81 mg Enteric Coated Tablet PO SCH (21:15)
[2019-07-08] MEDS: Saccharomyces boulardii 250 MG CAP PO SCH (21:15)
[2019-07-08] MEDS: Atorvastatin Calcium 10 MG TAB PO SCH (21:15)
[2019-07-09] MEDS: Morphine IR 10 MG/5 ML UDCUP PO PRN ×2 (00:26→05:40)
[2019-07-09] MEDS: Lidocaine Patch Removal 1 EACH TOP SCH (04:32)
[2019-07-09] MEDS: Levothyroxine Sodium 75 MCG TAB PO SCH (05:16)
[2019-07-09 08:56] VITALS: TEMP 98.6
[2019-07-09] MEDS: DULoxetine 60 MG CAP PO SCH (09:03)
[2019-07-09] MEDS: Gabapentin 300 MG CAP PO SCH (09:03)
[2019-07-09] MEDS: Docusate 100 MG CAP PO SCH (09:03)
[2019-07-09] MEDS: Furosemide 20 MG TAB PO SCH (09:04)
[2019-07-09] MEDS: [UNRECOGNIZED DRUG - OTHER] PO SCH (09:04)
[2019-07-09] MEDS: Carvedilol 3.125 MG TAB PO SCH (09:04)
[2019-07-09] MEDS: POTASSIUM CITRATE PO SCH (09:04)
[2019-07-09] MEDS: Famotidine 20 MG TAB PO SCH (09:04)
[2019-07-09] MEDS: Metoclopramide HCl 10 MG TAB PO SCH (09:04)
[2019-07-09] MEDS: Apixaban 5 MG TAB PO SCH (09:04)
--- NOTE | 2019-07-09 13:05 | PRG ---
DATE OF SERVICE: 07/09/2019 SUBJECTIVE: Jeffrey Isabel is doing well. He says he feels great. OBJECTIVE: VITAL SIGNS: He is afebrile, heart rate 77, respiratory rate 16, oximetry is 94% on room air, and blood pressure 113/66. LUNGS: Clear. HEART: Regular rhythm. ABDOMEN: Soft. He is tentatively going home with a LifeVest. IMPRESSION: Possibly aspiration mediated. He will do his swallowing exercises. He will see me in a month for a chest x-ray. I have encouraged his to call me should he have any problems. Job ID: [id number]
[2019-07-09 14:14] VITALS: BP 122/63
--- NOTE | 2019-07-09 21:45 | DIS ---
DATE OF ADMISSION: 07/03/2019 DATE OF DISCHARGE: 07/09/2019 DIAGNOSES AT THE TIME OF DISCHARGE: 1. Acute on chronic respiratory failure, resolved. 2. 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 3. Acute kidney injury on chronic kidney disease, improved. 4. 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 5. Type 2 myocardial infarction. 6. Recent hospitalization for bacteremia/deep venous thrombosis on oral anticoagulant. 7. Sepsis, resolved. 8. Chronic back pain. CONSULTANTS: 1. Azar Mendez MD, Cardiology Service. 2. Yung Castrejon MD, Pulmonary Service. 3. Meng Adair MD, Cardiology Service. 4. Rl Ivy MD, Pulmonary Service. 5. Francisco Sommer MD, Pulmonary Service. HOSPITAL COURSE: The patient is an 83-year-old male, who presented to emergency room with altered mental status and shortness of breath. He was brought by EMS. According to his , she was not able to get him up at this morning prior to EMS call. EMS evaluated him and he was brought to the ER, where he was found to be septic. Apparently, he had similar complaints in May 2019. His BUN was 50, potassium 4.3, chloride 140, creatinine 2.05. White blood cell count was elevated at 13.3. Urine was turbid, 3+ blood, and leukocyte esterase at 500 with white blood cells greater than 50, and 1+ bacteria. The patient was given levofloxacin and azithromycin and 2 L of fluids. His vital signs improved and the patient was admitted to the hospital. EKG showed sinus tachycardia 105 beats per minute, complete left bundle-branch block with ST segments within normal limits. Chest x-ray showed cardiomegaly and mild congestive heart failure and chronic changes. The patient was started on antibiotic as mentioned above. He was placed on gentle hydration. Pulmonary/Critical Care Service was consulted. Since his troponin was elevated, Cardiology was also asked to see the patient. He was diagnosed with acute CO. He was seen by Dr. Castrejon for Pulmonary evaluation and he felt that he developed pneumonia most likely from aspiration, so further workup was done on his swallowing with speech modified barium swallow which showed premature spillage and pooling. Laryngeal penetration was noted with all consistencies and there was mild aspiration with thin liquids, so according to speech pathologist, his diet was appropriately changed. Followup chest x-ray showed chronically elevated right hemidiaphragm, which was consistent with chronic right phrenic nerve palsy. He was continued on antibiotics. He was placed on oral morphine for his back pain. His general condition and respiratory status gradually improved. Cardiology Team did not recommend any invasive diagnostic workup. Echocardiogram was done which showed significantly decreased LVEF down to 25% to 30% with dyskinetic septum and diastolic function could not be assessed. The patient was offered a LifeVest, which was placed and he finished the course of antibiotics required for this kind of infection. He is discharged home in good condition with recommendation to stay on low-salt heart healthy diet. Activities as tolerated. MEDICATIONS: At the time of discharge: 1. Carvedilol 3.125 mg twice a day. 2. Docusate Colace 100 mg twice a day. 3. Synthroid 75 mcg once a day. 4. Florastor 250 mg at bedtime. 5. Atorvastatin 10 mg at bedtime. 6. Furosemide 40 mg twice a day. 7. Pantoprazole 40 mg twice a day. 8. Duloxetine 60 mg once a day. 9. Gabapentin 600 mg 3 times a day. 10. Metoclopramide 10 mg once a day. 11. Aspirin 81 mg once a day. 12. Frova 2.5 mg p.o. p.r.n. 13. Morphine sulfate 50 mg p.o. q.8 hours p.r.n. as needed. 14. Multivitamin one a day. 15. Eliquis 5 mg twice a day. 16. Propranolol 10 mg twice a day. 17. Vitamin B complex one capsule at bedtime. 18. Tylenol p.r.n. 19. DuoNeb p.r.n. FOLLOWUP: He is going to follow up with Dr. Adair in [address] Sommer. He will call his office to find out when he needs to follow up with him. Also, he will do follow up with the primary care physician in 1 week. TIME SPENT: This discharge was done in less than 30 minutes. Job ID: [id number]
== END 2019-07-09 15:25 | disposition home or self-care (01) | DRG 871 ==
LOC: ERS 06:37 → ERHOLD 08:42 → 2NO 10:26
PROVIDERS: ADMIT Internal Medicine; ATTEND Internal Medicine
DX: A41.9 Sepsis, unspecified organism (principal); J69.0 Pneumonitis due to inhalation of food and vomit; J96.21 Acute and chronic respiratory failure with hypoxia; I21.A1 Myocardial infarction type 2; N39.0 Urinary tract infection, site not specified; I50.22 Chronic systolic (congestive) heart failure; I42.9 Cardiomyopathy, unspecified; K21.9 Gastro-esophageal reflux disease without esophagitis; E03.9 Hypothyroidism, unspecified; E78.5 Hyperlipidemia, unspecified; G89.29 Other chronic pain; M54.9 Dorsalgia, unspecified; N18.3 Chronic kidney disease, stage 3 (moderate); J98.6 Disorders of diaphragm; I34.0 Nonrheumatic mitral (valve) insufficiency; I44.7 Left bundle-branch block, unspecified; G58.8 Other specified mononeuropathies; Z87.891 Personal history of nicotine dependence; Z88.1 Allergy status to other antibiotic agents; Z91.048 Other nonmedicinal substance allergy status; Z88.8 Allergy status to other drugs, medicaments and biological substances; Z79.899 Other long term (current) drug therapy; Z79.1 Long term (current) use of non-steroidal anti-inflammatories (NSAID); Z79.01 Long term (current) use of anticoagulants; Z85.46 Personal history of malignant neoplasm of prostate; Z99.81 Dependence on supplemental oxygen; I25.2 Old myocardial infarction; Z90.49 Acquired absence of other specified parts of digestive tract; Z92.3 Personal history of irradiation; Z88.0 Allergy status to penicillin; Z86.718 Personal history of other venous thrombosis and embolism; Z79.82 Long term (current) use of aspirin
CPT/HCPCS: 36415; 70450; 71045; 74230; 80048; 80053; 81003; 81015; 82553; 82805; 83605; 83735; 83880; 84484; 85025; 87040; 87086; 87804; 93005; 93306; 94640; 94760; 96361; 96365; 96366; J0456; J1956; J2270; J3490; J7620; J8597

== ENCOUNTER 2019-08-06 09:36 | Outpatient (CLI) | payer MEDICARE ==
--- NOTE | 2019-08-06 09:55 | RAD ---
XR Chest Pa Lat @ [facility] HISTORY: Shortness of breath COMPARISON: 07/04/2019 FINDINGS: There is continued elevation of the right hemidiaphragm. The heart size is stable. The aort a is tortuous. No lobar consolidation, pneumothoraces or pleural effusions are identified. IMPRESSION: No radiographic evidence of acute cardiopulmonary process.
== END 2019-08-06 09:37 | disposition home or self-care (01) ==
LOC: RAD 09:36
PROVIDERS: ATTEND Internal Medicine Critical Care Medicine
DX: R06.00 Dyspnea, unspecified (principal)
CPT/HCPCS: 71046

== ENCOUNTER 2019-11-10 06:05 | Day surgery (SDC) | payer MEDICARE ==
[2019-11-07 13:46] VITALS: BMI 25.8
[2019-11-10] MEDS ORDERED: Levofloxacin 500 mg/D5W 100 ml Premix Bag ONE (06:41)
[2019-11-10] MEDS ORDERED: Clindamycin/D5W 600 mg/50 ml Premix Bag ONE (06:41)
[2019-11-10 06:47] LABS: #Basophils 0.1 thou/uL (0.0-0.2); #Eosinphils 0.1 thou/uL (0.0-0.7); #Lymphocytes 1.8 thou/uL (1.20-3.40); #Monocytes 0.7 thou/uL (0.11-0.59); #Neutrophils 2.3 thou/uL (1.40-6.50); %Basophils 1.6 % (0.0-1.0); %Eosinophils 2.7 % (0.0-10.0); %Lymphocytes 35.2 % (21.0-51.0); %Monocytes 14.6 % (0.0-10.0); %Neutrophils 45.9 % (42.0-75.0); Hemoglobin 14.2 g/dL (14.0-18.0); Mean Corpuscular HGB CONC 31.7 g/dL (32.0-36.0); Mean Corpuscular Hemoglobin 28.9 pg (27.0-31.0); Mean Platelet Volume 7.5 fL (7.4-10.4); Platelet Count 200 thou/uL (130-400); Red Blood Cell (RBC) Count 4.91 mill/uL (4.70-6.10)
[2019-11-10 06:54] LABS: PTT 41.5 SEC (22.9-36.1); Prothrombin Time 13.6 SEC (12.0-14.7)
[2019-11-10 07:07] LABS: Anion Gap 13 mmol/L (10-20); BUN (Urea Nitrogen) 29 mg/dL (8.4-25.7); Calc. Creatinine Clearance 41 mL/min (70-130); Calcium 9.7 mg/dL (7.8-10.44); Carbon Dioxide 34 mmol/L (23-31); Chloride 99 mmol/L (98-107); Estimated GFR-MDRD 45; Glucose 108 mg/dL (83-110); Potassium 4.5 mmol/L (3.5-5.1); Sodium 141 mmol/L (136-145)
[2019-11-10] MEDS ORDERED: Propofol 500 MG/50 ML VIAL ONE (07:22)
[2019-11-10] MEDS ORDERED: Ketamine 50 MG/ML (10ML VIAL) ONE (07:22)
[2019-11-10] MEDS ORDERED: Midazolam HCl 2 mg/2 ml Vial ONE ×2 (08:05→10:00)
--- NOTE | 2019-11-10 11:29 | RAD ---
Chest AP view INDICATION: Post-ICD COMPARISON: Two-view chest radiograph dated August 06, 2019 FINDINGS: Lungs:There is stable elevation the right hemidiaphragm with right basilar atelectasis Cardiac silhouette:There is stable mild cardiomegaly. There is been interval placement of a multi margaret d AICD overlying the left chest wall. The AICD leads project in the expected position and appear intact. Pulmonary vasculature:Normal Pleural spaces:No pleural effusion or pneumothorax is demonstrated. Upper abdomen:No abnormality seen. Osseous structures: No acute osseous abnormality. Additional findings:None. IMPRESSION: Interval AICD placement without evidence of pneumothorax
[2019-11-10] MEDS ORDERED: Acetaminophen/Codeine 30-300mg Tablet ONE (12:56)
[2019-11-10] MEDS ORDERED: Acetaminophen/Codeine 30-300mg Tablet PO PRN ×2 (13:00)
[2019-11-10] MEDS ORDERED: Iopamidol 370 76% 50 ML VIAL FS ONE (13:16)
[2019-11-10] MEDS ORDERED: Clindamycin 150 MG CAP PO SCH (15:00)
== END 2019-11-10 14:28 | disposition home or self-care (01) ==
LOC: SDC 06:05
PROVIDERS: ATTEND Internal Medicine Cardiovascular Disease
DX: I11.0 Hypertensive heart disease with heart failure (principal); I50.22 Chronic systolic (congestive) heart failure; I44.7 Left bundle-branch block, unspecified; E78.5 Hyperlipidemia, unspecified; M19.90 Unspecified osteoarthritis, unspecified site; Z79.01 Long term (current) use of anticoagulants; Z79.899 Other long term (current) drug therapy; Z88.0 Allergy status to penicillin; Z88.1 Allergy status to other antibiotic agents
CPT/HCPCS: 33225; 33249; 36005; 71045; 75820; 80048; 85025; 85610; 85730; 93005 ×2; 93641; C1769; 93010; C1777; C1882; C1898; C1900; J1956; J2250; J2704; J3490; Q9967

== ENCOUNTER 2019-12-15 17:08 | Inpatient (IN) | payer MEDICARE ==
[2019-12-15 17:49] LABS: #Eosinphils 0.1 thou/uL (0.0-0.7); #Lymphocytes 1.8 thou/uL (1.20-3.40); #Monocytes 1.4 thou/uL (0.11-0.59); #Neutrophils 10.1 thou/uL (1.40-6.50); %Basophils 0.3 % (0.0-1.0); %Eosinophils 0.5 % (0.0-10.0); %Lymphocytes 13.3 % (21.0-51.0); %Monocytes 10.6 % (0.0-10.0); %Neutrophils 75.3 % (42.0-75.0); Mean Corpuscular HGB CONC 32.4 g/dL (32.0-36.0); Mean Corpuscular Hemoglobin 30.4 pg (27.0-31.0); Mean Corpuscular Volume 93.8 fL (78.0-98.0); Platelet Count 157 thou/uL (130-400); RBC Distribution Width 13.3 % (11.5-14.5); Red Blood Cell (RBC) Count 4.93 mill/uL (4.70-6.10); White Blood Cell (WBC) Count 13.4 thou/uL (4.8-10.8)
--- NOTE | 2019-12-15 17:56 | RAD ---
Portable frontal chest radiograph: 12/15/2019 COMPARISON: 11/10/2019 HISTORY: Shortness of breath FINDINGS: Stable shallow inspiration. Stable enlargement of the cardiac silhouette and stable elevati on of the right hemidiaphragm. Stable multilead transvenous AICD and dorsal column stimulators. Stable atherosclerotic calcification of the aortic arch. IMPRESSION: Stable appearance of the chest-no acute findings.
[2019-12-15 18:02] LABS: ALT (SGPT) 59 U/L (8-55); AST (SGOT) 67 U/L (5-34); Alkaline Phosphatase 99 U/L (40-110); Anion Gap 18 mmol/L (10-20); BUN (Urea Nitrogen) 41 mg/dL (8.4-25.7); Bilirubin, Total 0.7 mg/dL (0.2-1.2); CK (CPK) 103 U/L (30-200); Calc. Creatinine Clearance 0 mL/min (70-130); Calcium 9.6 mg/dL (7.8-10.44); Carbon Dioxide 29 mmol/L (23-31); Chloride 97 mmol/L (98-107); Estimated GFR-MDRD 37; Globulin 3.3 g/dL (2.4-3.5); Glucose 147 mg/dL (83-110); Potassium 5.4 mmol/L (3.5-5.1); Protein, Total 7.3 g/dL (5.8-8.1); Sodium 139 mmol/L (136-145)
[2019-12-15] MEDS ORDERED: Aspirin 325 MG TAB ONE (18:18)
--- NOTE | 2019-12-15 18:18 | CT ---
Head CT without contrast 12/15/2019: COMPARISON: 07/03/2019 HISTORY: Shortness of breath, trauma TECHNIQUE: Axial CT imaging at 5 mm intervals from vertex through skull base without contrast FINDINGS: Imaged paranasal sinuses and mastoid air cells grossly unremarkable. No displaced calvarial fracture. Extensive periventricular and deep white matter hypodensity, evidence of stable small vessel disease. Stable prominent cerebral volume loss, particularly at the level of the vertex. No intracranial hemorrhage, midline shift, or mass effect. There is mild soft tissue swelling superio r to and lateral to the right orbit. IMPRESSION: Chronic findings as described above. No intracranial hemorrhage or displaced calvarial fr acture. Soft tissue swelling in the right periorbital region.
--- NOTE | 2019-12-15 18:27 | CT ---
CT of thefacial bones: 12/15/2019 COMPARISON:None available HISTORY:Fall, trauma, pain TECHNIQUE: Serial axial CT imaging at2.5 mm through the facial bones. Coronal and sagittal reformatt ed imaging obtained. Findings:There is soft tissue swelling superior to lateral to and inferior to the right orbit. The na kathryn bones, zygomatic arches, and pterygoid plates appear intact. No significant paranasal sinus or mastoid air cell opacification. No displaced fracture or evidence o f dislocation. The patient is status post bilateral paranasal sinus surgery. Incidental note is made of dilation of bilateral superior ophthalmic veins, left greater than right. 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 Neither temporomandibular joint appears dislocated. The mandible appears intact. The orbital floor an d medial orbital wall appears unremarkable bilaterally. Impression:No acute fracture or evidence of dislocation. Right-sided periorbital soft tissue swelling . Incidental findings as described above.
[2019-12-15 18:32] LABS: CKMB 3.7 ng/mL (0-6.6)
--- NOTE | 2019-12-15 19:25 | PDOC.FPRHP ---
- History of Present Illness Chief Complaint: weakness and shortness of breath History of Present Illness: Mr. Isabel is a pleasant 84yoM who presents to the ED for worsening shortness of breath and generalized weakness. His states that he is not a complainer and has not mentioned any worsening symptoms but she has noticed his shortness of breath and put a pulse-ox on him today and noted it to be 59%. She also noted that he has wanted to sleep more and has dropped several things from his grasp due to weakness. He has a significant PMH of b ED Course: 80mg Lasix IV, ASA, Duoneb - Allergies/Adverse Reactions Allergies Allergy/AdvReac Type Severity Reaction Status Date / Time cefepime HCl [From Maxipime] Allergy Intermediate Rash Verified 11/07/19 13:46 cilastatin sodium Allergy Intermediate Rash Verified 11/07/19 13:46 [From Primaxin] Penicillins Allergy Intermediate Rash Verified 11/07/19 13:46 adhesive Allergy Verified 11/07/19 13:46 imipenem [From Primaxin] Allergy Verified 11/07/19 13:46 - Home Medications Medication Instructions Recorded Confirmed Type Atorvastatin Calcium [Lipitor] 10 mg PO HS 08/13/14 12/15/19 History DULoxetine [Cymbalta] 60 mg PO DAILY 08/13/14 12/15/19 History Gabapentin [Neurontin] 600 mg PO BID 08/13/14 12/15/19 History Levothyroxine Sodium [Synthroid] 75 mcg PO DAILY 08/13/14 12/15/19 History Pantoprazole [Protonix] 40 mg PO BID 08/13/14 12/15/19 History Butalb/Acetaminophen/Caffeine 1 tab PO Q4HR 07/03/19 12/16/19 History [Jjzmxe-Xcozxkil-Ckzf 50-325-40] Carvedilol [Coreg] 3.125 mg PO BID #60 tab 07/09/19 12/15/19 Rx Furosemide [Lasix] 80 mg PO DAILY 11/07/19 12/16/19 History Potassium Citrate [Urocit-K] 15 meq PO BID-AC 11/07/19 12/16/19 History Potassium Chloride [Klor-Con 10] 1 tab PO BID 11/10/19 12/15/19 History SUMAtriptan [SUMAtriptan Nasal 1 spr NASAL PRN PRN 11/10/19 12/15/19 History [place]] Apixaban [Eliquis] 5 mg PO BID 12/15/19 12/16/19 History Acetaminophen [Tylenol Arthritis] 650 mg PO BID 12/16/19 12/16/19 History Folic Acid 1 mg PO DAILY 12/16/19 12/16/19 History Metoclopramide HCl [Reglan] 10 mg PO DAILY 12/16/19 12/16/19 History Morphine Sulfate [Arymo ER] 15 mg PO Q4HR PRN 12/16/19 12/16/19 History Multivit-Min/FA/Lycopen/Lutein 1 tablet PO DAILY 12/16/19 12/16/19 History [Centrum Silver Tablet] Vit B Comp/C/Folic/Iron/Vit E 1 tablet PO DAILY 12/16/19 12/16/19 History [Vitamin B Complex Tablet] - History PMHx: HFrEF (Echo 06/2019 EF 25-30%, dyskinetic septum) CKD III h/o DVT Hiatal hernia, GERD Hypothyroidism HLD Prostate cancer, s/p radiation and resection PSHx: s/p AICD placement Aorta repair Back surgery Sinus surgery Ekta Prostate surgery FHx: CAD Social: Denies tobacco, alcohol, and illicit drug use. - Vital signs Weight 80kg, BP: 119/79, Pulse: 77, Resp: 18, Temp: 98.9 (Oral), Pain: 0, O2 sat : 98 on (4L Oxygen) - Physical Exam Constitutional: NAD, awake, alert and oriented, well developed HEENT: PERRLA, EOMI, grossly normal vision, grossly normal hearing, MMM -HEENT: s/p fall. Right sided periorbital bruising and skin tear. Conjunctival hemorrage. Neck: supple, trachea midline Heart: RRR, normal S1/S2, no murmurs/rubs/gallops, pulses present Lungs: CTAB, no respiratory distress -Lungs: Crackles in the bases bilaterally Abdomen: soft, non-tender, bowel sounds present -Abdomen: Midline hernia present, not incarcerated Musculoskeletal: normal structure, normal tone Neurological: no focal deficit, CN II-XII intact Skin: good turgor, capillary refill <2 seconds -Skin: Venous stasis dermatitis Heme/Lymphatic: no unusual bruising or bleeding, no purpura, no petechia Psychiatric: normal mood and affect, good judgment and insight FMR H&P: Results - Labs Result Diagrams: 12/16/19 04:30 12/16/19 04:30 Lab results: WBC 13.4 thou/uL (4.8-10.8) H 12/15/19 17:34 Hgb 15.0 g/dL (14.0-18.0) 12/15/19 17:34 Hct 46.2 % (42.0-52.0) 12/15/19 17:34 MCV 93.8 fL (78.0-98.0) 12/15/19 17:34 Plt Count 157 thou/uL (130-400) 12/15/19 17:34 Neutrophils % 75.3 % (42.0-75.0) H 12/15/19 17:34 Sodium 139 mmol/L (136-145) 12/15/19 17:34 Potassium 5.4 mmol/L (3.5-5.1) H 12/15/19 17:34 Chloride 97 mmol/L (98-107) L 12/15/19 17:34 Carbon Dioxide 29 mmol/L (23-31) 12/15/19 17:34 BUN 41 mg/dL (8.4-25.7) H 12/15/19 17:34 Creatinine 1.78 mg/dL (0.7-1.3) H 12/15/19 17:34 Glucose 147 mg/dL (83-110) H 12/15/19 17:34 Calcium 9.6 mg/dL (7.8-10.44) 12/15/19 17:34 Total Bilirubin 0.7 mg/dL (0.2-1.2) 12/15/19 17:34 AST 67 U/L (5-34) H 12/15/19 17:34 ALT 59 U/L (8-55) H 12/15/19 17:34 Alkaline Phosphatase 99 U/L (40-110) 12/15/19 17:34 Creatine Kinase 103 U/L (30-200) 12/15/19 17:34 CK-MB (CK-2) 3.7 ng/mL (0-6.6) 12/15/19 17:34 B-Natriuretic Peptide 1212.5 pg/mL (0-100) H 12/15/19 17:34 Serum Total Protein 7.3 g/dL (5.8-8.1) 12/15/19 17:34 Albumin 4.0 g/dL (3.4-4.8) 12/15/19 17:34 - EKG Interpretation EKG: Paced rhythm - Radiology Interpretation Chest x-ray Status: report reviewed by me (FINDINGS: Stable shallow inspiration. Stable enlargement of the cardiac silhouette and stable elevati on of the right hemidiaphragm. Stable multilead transvenous AICD and dorsal column stimulators. Stable atherosclerotic calcification of the aortic arch. IMPRESSION: Stable appearance of the chest-no acute findings.) CT scan - head Status: report reviewed by me (FINDINGS: Imaged paranasal sinuses and mastoid air cells grossly unremarkable. No displaced calvarial fracture. Extensive periventricular and deep white matter hypodensity, evidence of stable small vessel disease. Stable prominent cerebral volume loss, particularly at the level of the vertex. No intracranial hemorrhage, midline shift, or mass effect. There is mild soft tissue swelling superio r to and lateral to the right orbit. IMPRESSION: Chronic findings as described above. No intracranial hemorrhage or displaced calvarial fr acture. Soft tissue swelling in the right periorbital region. Impression:No acute fracture or evidence of dislocation. Right-sided periorbital soft tissue swelling) FMR H&P: A/P - Problem List (1) NSTEMI (non-ST elevated myocardial infarction) Current Visit: Yes Status: Acute Code(s): I21.4 - NON-ST ELEVATION (NSTEMI) MYOCARDIAL INFARCTION (2) HFrEF (heart failure with reduced ejection fraction) Current Visit: Yes Status: Chronic Code(s): I50.20 - UNSPECIFIED SYSTOLIC ( CONGESTIVE) HEART FAILURE (3) CHF exacerbation Current Visit: Yes Status: Acute Code(s): I50.9 - HEART FAILURE, UNSPECIFIED (4) CKD (chronic kidney disease), stage III Current Visit: Yes Status: Chronic Code(s): N18.3 - CHRONIC KIDNEY DISEASE, STAGE 3 (MODERATE) (5) Hypothyroidism Current Visit: Yes Status: Chronic Code(s): E03.9 - HYPOTHYROIDISM, UNSPECIFIED (6) Elevated troponin Current Visit: Yes Status: Acute Code(s): R79.89 - OTHER SPECIFIED ABNORMAL FINDINGS OF BLOOD CHEMISTRY - Plan Acute hypoxic respiratory failure Acute CHF exacerbation - BNP 1212, crackles heard in lungs. Acutely short of breath and hypoxic at 72% on RA on arrival. Patient no longer wears O2 at home. - Will diurese with IV lasix and monitor strict I/O - Continue coreg - HH diet - HF clinic consulted. - Cadiology consulted. NSTEMI - Likely 2/2 demand ischemia from HF exacerbation. - Will trend troponins while monitoring diuresis. - Cadiology, Dr. Turner, contacted and agrees with plan, appreciate recommendations. CKD III - appears to be at baseline. - will monitor and avoid nephrotoxic agents. Hyperkalemic - Potassium 5.4 - Will hold K supplements and monitor with repeat BMP. Will likely resolve with lasix. S/p fall - CT head and face negative. Hypothyroidism - continue home medications h/o DVT - continue eliquis Disposition/LOS: Dispo: Guarded, inpatient. LOS > 48 hours expected. Code: Full. Palliative care consulted to discuss goals of care, complex decision making, and to establish advance directives. VTE: Eliquis [facility]: [facility] Will further investigate tomorrow. FMR H&P: Upper Level - Plan Date/Time: 12/15/191924 I, Cisco Barton MD, have evaluated this patient and agree with findings/ plan as outlined by internal investigator resident. Pertinent changes/additions are listed here. CHF exacerbation - BNP on admission 1200 - IV lasix - Strict I&Os - Optimize medical management Elevated Troponin - Contacted Dr. Turner, Cardiology, recommended medical management with Eliquis and diuresis Hyperkalemia - Will hold supplement - Increased dose of Lasix - Recheck BMP in AM - Consider Kayexalate if continues to be elevated CKD - Creatinine appears at baseline - Monitor BMP PCP: Dr. Mancini CODE STATUS: FULL CODE Disposition: Guarded, will admit for further evaluation and treatment. Addendum - Attending - Attending Attestation Date/Time: 12/15/191922 I personally evaluated the patient and discussed the management with Dr. Daugherty and Dr. Barton I agree with the History, Examination, Assessment and Plan documented above with any addition or exceptions noted below. 84 yo male with hx of rEFHF presents with progressive fatigue, SOB, and hypoxia on room air at home. Patient noted to have fluid overload with acute hypoxic respiratory failure. Will admit to tele. Continue to actively diuresis as renal function tolerates. Continue cardiogenic meds. Review and update ECHO. Cards consulted. HF possibly related to NSTEMI. Will continue to trend trops to make sure not progressing. Trend EKGs. Monitor symptoms. Currently asymptomatic. Will continue anticoagulant and cardiac meds. Monitor for progression of bruise from recent fall. Spoke with Dr. Mancini last night. Aware of admission to [facility]. Has updated request in computer. Unsure why ER now unable to locate preferences after more than 10 years of admissions to Hospital service. Dr. Mancini would like updates of patient's progress. Jyotsna
[2019-12-15] MEDS ORDERED: Furosemide 40 MG/4 ML VIAL ONE (19:34)
[2019-12-15] MEDS ORDERED: Ondansetron ODT 4 MG TAB PO PRN (20:26)
[2019-12-15] MEDS ORDERED: Fioricet 325/50/40 mg Tablet PO PRN (20:39)
[2019-12-15 21:51] LABS: Troponin I 1.155 ng/mL (< 0.028)
[2019-12-16] MEDS: Gabapentin 300 MG CAP PO SCH ×3 (00:16→20:42)
[2019-12-16] MEDS: Atorvastatin Calcium 10 MG TAB PO SCH ×2 (00:16→20:43)
[2019-12-16] MEDS: Apixaban 2.5 MG TAB PO SCH ×3 (00:16→20:42)
[2019-12-16] MEDS: Carvedilol 3.125 MG TAB PO SCH ×3 (00:16→20:43)
[2019-12-16 01:14] LABS: Critical Call Chem Troponin I RESULT DECREASING; Troponin I 1.061 ng/mL (< 0.028)
[2019-12-16] MEDS: Furosemide 40 MG/4 ML VIAL SLOW IVP SCH ×2 (04:37→14:27)
[2019-12-16] MEDS: Levothyroxine Sodium 75 MCG TAB PO SCH (04:37)
[2019-12-16 04:54] LABS: #Eosinphils 0.1 thou/uL (0.0-0.7); #Lymphocytes 1.4 thou/uL (1.20-3.40); #Monocytes 1.1 thou/uL (0.11-0.59); #Neutrophils 7.7 thou/uL (1.40-6.50); %Basophils 0.1 % (0.0-1.0); %Eosinophils 0.7 % (0.0-10.0); %Monocytes 10.3 % (0.0-10.0); %Neutrophils 74.8 % (42.0-75.0); Hemoglobin 13.1 g/dL (14.0-18.0); Mean Corpuscular Hemoglobin 28.5 pg (27.0-31.0); Mean Platelet Volume 8.1 fL (7.4-10.4); Platelet Count 162 thou/uL (130-400); RBC Distribution Width 13.4 % (11.5-14.5); Red Blood Cell (RBC) Count 4.59 mill/uL (4.70-6.10); White Blood Cell (WBC) Count 10.2 thou/uL (4.8-10.8)
[2019-12-16 05:11] LABS: Anion Gap 13 mmol/L (10-20); BUN (Urea Nitrogen) 37 mg/dL (8.4-25.7); Calc. Creatinine Clearance 41 mL/min (70-130); Calcium 8.9 mg/dL (7.8-10.44); Carbon Dioxide 31 mmol/L (23-31); Chloride 99 mmol/L (98-107); Estimated GFR-MDRD 43; Glucose 127 mg/dL (83-110); Potassium 4.2 mmol/L (3.5-5.1); Sodium 139 mmol/L (136-145)
--- NOTE | 2019-12-16 05:33 | PDOC.FM ---
- Objective Vital Signs & Weight: Vital Signs (12 hours) Temp Pulse Resp BP Pulse Ox 12/16/19 04:00 98.2 F 73 18 103/54 L 92 L 12/16/19 00:30 98 12/16/19 00:10 18 98 12/15/19 23:47 97 F L 72 14 128/64 Weight Weight 82.554 kg I&O: 12/14/19 12/15/19 12/16/19 06:59 06:59 06:59 Intake Total 360 Output Total 600 Balance -240 Result Diagrams: 12/16/19 04:30 12/16/19 04:30 Dx/Plan (1) Acute on chronic systolic (congestive) heart failure Code(s): I50.23 - ACUTE ON CHRONIC SYSTOLIC (CONGESTIVE) HEART FAILURE Status : Acute (2) CKD (chronic kidney disease), stage III Code(s): N18.3 - CHRONIC KIDNEY DISEASE, STAGE 3 (MODERATE) Status: Chronic (3) HFrEF (heart failure with reduced ejection fraction) Code(s): I50.20 - UNSPECIFIED SYSTOLIC (CONGESTIVE) HEART FAILURE Status: Chronic (4) Hypothyroidism Code(s): E03.9 - HYPOTHYROIDISM, UNSPECIFIED Status: Chronic (5) NSTEMI (non-ST elevated myocardial infarction) Code(s): I21.4 - NON-ST ELEVATION (NSTEMI) MYOCARDIAL INFARCTION Status: Acute (6) Hyperkalemia Code(s): E87.5 - HYPERKALEMIA Status: Acute - Plan Plan: Patient is an 84M with PMHX of HFrEF, ACID placement, CKD, hypothyroidism admitted for acute on chronic CHF exacerbation and NSTEMI #Acute on chronic systolic CHF exacerbation - BNP 1212, acutely short of breath and hypoxic at 72% on RA on arrival. Patient no longer wears O2 at home. - Will continue to diurese with IV lasix and monitor strict I/O - Continue coreg - HH diet - HF clinic consulted. - Cadiology consulted. #NSTEMI-Type 2 - Likely 2/2 demand ischemia from HF exacerbation. - Troponins 0.919>1.155>1.061 - Cadiology, Dr. Turner, contacted and agrees with plan, appreciate recommendations. #CKD III - appears to be at baseline. - will monitor and avoid nephrotoxic agents. #Hyperkalemia, resolved - Potassium 5.4 > 4.2 - Continue to monitor #S/p fall - CT head and face negative. #Hypothyroidism - continue home medications #h/o DVT - continue eliquis Disposition/LOS: Dispo: Guarded, inpatient for continued diuresis. Cardiology consulted, appreciate resc. Code: Full. Palliative care consulted to discuss goals of care, complex decision making, and to establish advance directives. VTE: Eliquis PCP: Dr. Mancini, who typically admits to [facility] hospitalist service. Will further investigate tomorrow.
--- NOTE | 2019-12-16 07:48 | PDOC.HOSPP ---
- Subjective Encounter Date: 12/16/19 Encounter Time: 11:00 Subjective: Assuming care from [facility] due to patient of Dr. Mancini. Patient feeling a bit better. Ambulated to bathroom without SOB. Sore under right eye where hit it and had lac. - Objective Vital Signs & Weight: Vital Signs (12 hours) Temp Pulse Resp BP Pulse Ox 12/16/19 04:00 98.2 F 73 18 103/54 L 92 L 12/16/19 00:30 98 12/16/19 00:10 18 98 12/15/19 23:47 97 F L 72 14 128/64 Weight Weight 182 lb I&O: 12/15/19 12/16/19 12/17/19 06:59 06:59 06:59 Intake Total 360 Output Total 600 Balance -240 Result Diagrams: 12/16/19 04:30 12/16/19 04:30 Hospitalist ROS - Review of Systems Constitutional: denies: fever, chills Respiratory: denies: cough, shortness of breath Cardiovascular: denies: chest pain, palpitations Gastrointestinal: denies: nausea, vomiting, abdominal pain - Medication Medications: Active Medications Generic Name Dose Route Start Last Admin Trade Name Freq PRN Reason Stop Dose Admin Apixaban 2.5 mg 12/15/19 21:00 12/16/19 00:16 Eliquis PO 2.5 mg BID JANICE Administration Atorvastatin Calcium 10 mg 12/15/19 21:00 12/16/19 00:16 Lipitor PO 10 mg HS JANICE Administration Carvedilol 3.125 mg 12/15/19 21:00 12/16/19 00:16 Coreg PO 3.125 mg BID JANICE Administration Furosemide 40 mg 12/16/19 06:00 12/16/19 04:37 Lasix SLOW IVP 40 mg 0600,1400 JANICE Administration Gabapentin 600 mg 12/15/19 21:00 12/16/19 00:16 Neurontin PO 600 mg BID JANICE Administration Levothyroxine Sodium 75 mcg 12/16/19 06:00 12/16/19 04:37 Synthroid PO 75 mcg 0600 JANICE Administration Pantoprazole Sodium 40 mg 12/15/19 21:00 12/16/19 00:17 Protonix PO 40 mg BID JANICE Administration - Exam General Appearance: NAD, awake alert Eye: PERRL Eye - other findings: eye movements normal ENT: moist mucosa ENT - other findings: hematoma and lac under right eye Heart: RRR, no murmur, no gallops, no rubs Respiratory: CTAB, no wheezes, no rales, no ronchi Gastrointestinal: soft, non-tender, non-distended, normal bowel sounds Psychiatric: normal affect, normal behavior Hosp A/P (1) Acute on chronic systolic (congestive) heart failure Code(s): I50.23 - ACUTE ON CHRONIC SYSTOLIC (CONGESTIVE) HEART FAILURE Status : Acute (2) Type 2 acute myocardial infarction Code(s): I21.A1 - MYOCARDIAL INFARCTION TYPE 2 Status: Acute (3) Acute respiratory failure with hypoxemia Code(s): J96.01 - ACUTE RESPIRATORY FAILURE WITH HYPOXIA Status: Acute (4) CKD (chronic kidney disease), stage III Code(s): N18.3 - CHRONIC KIDNEY DISEASE, STAGE 3 (MODERATE) Status: Chronic (5) Hyperkalemia Code(s): E87.5 - HYPERKALEMIA Status: Resolved (6) Hypothyroidism Code(s): E03.9 - HYPOTHYROIDISM, UNSPECIFIED Status: Chronic - Plan IV Lasix, fluid restriction Cardiology consult Potassium normalized DVT Proph: SCDs
[2019-12-16] MEDS ORDERED: MORPHINE SULFATE 15 MG PO PRN (07:58)
[2019-12-16] MEDS ORDERED: SUMATRIPTAN NASAL PRN (07:58)
[2019-12-16] MEDS ORDERED: Non-Formulary Item 1 EACH (Vit B Comp/C/Folic/Iron/Vit E [Vitamin B Complex Tablet] 1 TAB PO SCH (09:00)
[2019-12-16] MEDS ORDERED: [UNRECOGNIZED DRUG - OTHER] PO SCH (09:00)
[2019-12-16] MEDS: DULoxetine 60 MG CAP PO SCH (09:07)
[2019-12-16] MEDS: Multivitamin W/ Minerals 1 TAB PO SCH (09:15)
[2019-12-16] MEDS: Metoclopramide HCl 10 MG TAB PO SCH (09:15)
[2019-12-16] MEDS: Folic Acid 1 MG TAB PO SCH (09:15)
[2019-12-16] MEDS: Stress 600 With Zinc 1 TAB PO SCH (09:23)
[2019-12-17] MEDS: Levothyroxine Sodium 75 MCG TAB PO SCH (06:37)
[2019-12-17] MEDS: Furosemide 40 MG/4 ML VIAL SLOW IVP SCH ×2 (06:37→14:46)
--- NOTE | 2019-12-17 08:03 | PDOC.HOSPP ---
- Subjective Encounter Date: 12/17/19 Encounter Time: 09:40 Subjective: Patient without complaints. Doesn't use O2 at home. Ambulating about baseline per patient with PT. No CP or SOB at rest. - Objective Vital Signs & Weight: Vital Signs (12 hours) Temp Pulse Resp BP Pulse Ox 12/17/19 03:20 98.0 F 83 18 173/81 H 95 Weight Weight 117 lb 6.4 oz I&O: 12/16/19 12/17/19 12/18/19 06:59 06:59 06:59 Intake Total 360 780 Output Total 600 450 Balance -240 330 Result Diagrams: 12/16/19 04:30 12/16/19 04:30 Hospitalist ROS - Review of Systems Constitutional: denies: fever, chills Respiratory: denies: cough, shortness of breath Cardiovascular: denies: chest pain, palpitations, edema Gastrointestinal: denies: nausea, vomiting, abdominal pain - Medication Medications: Active Medications Generic Name Dose Route Start Last Admin Trade Name Freq PRN Reason Stop Dose Admin Apixaban 2.5 mg 12/15/19 21:00 12/16/19 20:42 Eliquis PO 2.5 mg BID JANICE Administration Atorvastatin Calcium 10 mg 12/15/19 21:00 12/16/19 20:43 Lipitor PO 10 mg HS JANICE Administration Carvedilol 3.125 mg 12/15/19 21:00 12/16/19 20:43 Coreg PO 3.125 mg BID JANICE Administration Duloxetine HCl 60 mg 12/16/19 09:00 12/16/19 09:07 Cymbalta PO 60 mg DAILY JANICE Administration Folic Acid 1 mg 12/16/19 09:00 12/16/19 09:15 Folvite PO 1 mg DAILY JANICE Administration Furosemide 40 mg 12/16/19 06:00 12/17/19 06:37 Lasix SLOW IVP 40 mg 0600,1400 JANICE Administration Gabapentin 600 mg 12/15/19 21:00 12/16/19 20:42 Neurontin PO 600 mg BID JANICE Administration Iron/Minerals/Multivitamins 1 tab 12/16/19 09:00 12/16/19 09:15 Theragran M PO 1 tab DAILY JANICE Administration Levothyroxine Sodium 75 mcg 12/16/19 06:00 12/17/19 06:37 Synthroid PO 75 mcg 0600 JANICE Administration Metoclopramide HCl 10 mg 12/16/19 09:00 12/16/19 09:15 Reglan PO 10 mg DAILY JANICE Administration Multivitamins/Zinc 1 tab 12/16/19 09:00 12/16/19 09:23 Stress 600 With Zinc PO 1 tab DAILY JANICE Administration Pantoprazole Sodium 40 mg 12/15/19 21:00 12/16/19 20:43 Protonix PO 40 mg BID JANICE Administration Sodium Chloride 10 ml 12/16/19 09:00 12/16/19 20:45 Flush - Normal Saline IVF 10 ml Q12HR JANICE Administration - Exam General Appearance: NAD, awake alert ENT: moist mucosa Heart: RRR, no murmur, no gallops, no rubs Respiratory: CTAB, no wheezes, no rales, no ronchi Gastrointestinal: soft, non-tender, non-distended, normal bowel sounds Extremities: no edema Psychiatric: normal affect, normal behavior, A&O x 3 Hosp A/P (1) Acute on chronic systolic (congestive) heart failure Code(s): I50.23 - ACUTE ON CHRONIC SYSTOLIC (CONGESTIVE) HEART FAILURE Status : Acute (2) Type 2 acute myocardial infarction Code(s): I21.A1 - MYOCARDIAL INFARCTION TYPE 2 Status: Acute (3) Acute respiratory failure with hypoxemia Code(s): J96.01 - ACUTE RESPIRATORY FAILURE WITH HYPOXIA Status: Acute (4) CKD (chronic kidney disease), stage III Code(s): N18.3 - CHRONIC KIDNEY DISEASE, STAGE 3 (MODERATE) Status: Chronic (5) Hyperkalemia Code(s): E87.5 - HYPERKALEMIA Status: Resolved (6) Hypothyroidism Code(s): E03.9 - HYPOTHYROIDISM, UNSPECIFIED Status: Chronic - Plan IV Lasix, fluid restriction, not sure if getting accurate I&O as minimal UOP but significant weight loss Cardiology consulted- plan for medical management at this time Creatinine improving a bit with diuresis Potassium normalized DVT Proph: SCDs
[2019-12-17] MEDS: Gabapentin 300 MG CAP PO SCH ×2 (10:44→20:11)
[2019-12-17] MEDS: DULoxetine 60 MG CAP PO SCH (10:45)
[2019-12-17] MEDS: Carvedilol 3.125 MG TAB PO SCH ×2 (10:45→20:10)
[2019-12-17] MEDS: Apixaban 2.5 MG TAB PO SCH ×2 (10:45→20:12)
[2019-12-17] MEDS: Metoclopramide HCl 10 MG TAB PO SCH (10:45)
[2019-12-17] MEDS: Folic Acid 1 MG TAB PO SCH (10:45)
[2019-12-17] MEDS: Multivitamin W/ Minerals 1 TAB PO SCH (10:46)
[2019-12-17] MEDS: Stress 600 With Zinc 1 TAB PO SCH (10:46)
[2019-12-17 13:27] VITALS: BMI 26.4
[2019-12-17 14:36] LABS: #Monocytes 0.9 thou/uL (0.11-0.59); #Neutrophils 5.9 thou/uL (1.40-6.50); %Basophils 0.3 % (0.0-1.0); %Eosinophils 0.5 % (0.0-10.0); %Lymphocytes 12.8 % (21.0-51.0); %Monocytes 11.7 % (0.0-10.0); %Neutrophils 74.8 % (42.0-75.0); Hemoglobin 13.7 g/dL (14.0-18.0); Mean Corpuscular HGB CONC 32.3 g/dL (32.0-36.0); Mean Corpuscular Hemoglobin 30.2 pg (27.0-31.0); Mean Corpuscular Volume 93.5 fL (78.0-98.0); Mean Platelet Volume 7.8 fL (7.4-10.4); Platelet Count 177 thou/uL (130-400); RBC Distribution Width 13.3 % (11.5-14.5); Red Blood Cell (RBC) Count 4.53 mill/uL (4.70-6.10); White Blood Cell (WBC) Count 7.8 thou/uL (4.8-10.8)
[2019-12-17 14:57] LABS: Anion Gap 10 mmol/L (10-20); BUN (Urea Nitrogen) 22 mg/dL (8.4-25.7); Calc. Creatinine Clearance 57 mL/min (70-130); Calcium 9.6 mg/dL (7.8-10.44); Carbon Dioxide 36 mmol/L (23-31); Chloride 101 mmol/L (98-107); Estimated GFR-MDRD 65; Glucose 95 mg/dL (83-110); Potassium 3.8 mmol/L (3.5-5.1); Sodium 143 mmol/L (136-145)
[2019-12-17] MEDS: Acetaminophen 325 MG TAB PO PRN (20:09)
[2019-12-17] MEDS: Atorvastatin Calcium 10 MG TAB PO SCH (20:11)
[2019-12-18] MEDS: Acetaminophen 325 MG TAB PO PRN ×2 (01:37→17:10)
[2019-12-18 05:22] LABS: Anion Gap 12 mmol/L (10-20); BUN (Urea Nitrogen) 20 mg/dL (8.4-25.7); Calc. Creatinine Clearance 63 mL/min (70-130); Calcium 9.3 mg/dL (7.8-10.44); Carbon Dioxide 34 mmol/L (23-31); Chloride 99 mmol/L (98-107); Estimated GFR-MDRD 72; Glucose 106 mg/dL (83-110); Potassium 3.2 mmol/L (3.5-5.1); Sodium 142 mmol/L (136-145)
[2019-12-18] MEDS: Levothyroxine Sodium 75 MCG TAB PO SCH (06:05)
[2019-12-18] MEDS: Furosemide 40 MG/4 ML VIAL SLOW IVP SCH ×2 (06:05→14:38)
[2019-12-18] MEDS ORDERED: Potassium Chloride 20 MEQ TAB PO SCH (07:45)
--- NOTE | 2019-12-18 07:47 | PDOC.HOSPP ---
- Subjective Encounter Date: 12/18/19 Encounter Time: 13:00 Subjective: Patient feeling a bit better. Ambulated in the hallway well. Still requiring oxygen. Had some loose stools in hospital, worse last night 3x. Hx C. diff in past. Belly was hurting last night, a bit better today. - Objective Vital Signs & Weight: Vital Signs (12 hours) Temp Pulse Resp BP Pulse Ox 12/18/19 03:50 97.9 F 81 20 181/86 H 95 Weight Admit Weight 182 lb Weight 169 lb 11.2 oz I&O: 12/17/19 12/18/19 12/19/19 06:59 06:59 06:59 Intake Total 780 990 Output Total 450 1350 Balance 330 -360 Result Diagrams: 12/17/19 14:22 12/18/19 04:04 Hospitalist ROS - Review of Systems Constitutional: denies: fever, chills Respiratory: reports: SOB with excertion. denies: cough, shortness of breath Cardiovascular: denies: chest pain, palpitations Gastrointestinal: reports: abdominal pain, diarrhea. denies: nausea, vomiting, constipation - Medication Medications: Active Medications Generic Name Dose Route Start Last Admin Trade Name Freq PRN Reason Stop Dose Admin Acetaminophen 650 mg 12/15/19 20:26 12/18/19 01:37 Tylenol PO 650 mg Q4H PRN Administration Headache/Fever/Mild Pain (1-3) Apixaban 2.5 mg 12/15/19 21:00 12/17/19 20:12 Eliquis PO 2.5 mg BID JANICE Administration Atorvastatin Calcium 10 mg 12/15/19 21:00 12/17/19 20:11 Lipitor PO 10 mg HS JANICE Administration Duloxetine HCl 60 mg 12/16/19 09:00 12/17/19 10:45 Cymbalta PO 60 mg DAILY JANICE Administration Folic Acid 1 mg 12/16/19 09:00 12/17/19 10:45 Folvite PO 1 mg DAILY JANICE Administration Furosemide 40 mg 12/16/19 06:00 12/18/19 06:05 Lasix SLOW IVP 40 mg 0600,1400 JANICE Administration Gabapentin 600 mg 12/15/19 21:00 12/17/19 20:11 Neurontin PO 600 mg BID JANICE Administration Iron/Minerals/Multivitamins 1 tab 12/16/19 09:00 12/17/19 10:46 Theragran M PO 1 tab DAILY JANICE Administration Levothyroxine Sodium 75 mcg 12/16/19 06:00 12/18/19 06:05 Synthroid PO 75 mcg 0600 JANICE Administration Metoclopramide HCl 10 mg 12/16/19 09:00 12/17/19 10:45 Reglan PO 10 mg DAILY JANICE Administration Multivitamins/Zinc 1 tab 12/16/19 09:00 12/17/19 10:46 Stress 600 With Zinc PO 1 tab DAILY JANICE Administration Pantoprazole Sodium 40 mg 12/15/19 21:00 12/17/19 20:11 Protonix PO 40 mg BID JANICE Administration Sodium Chloride 10 ml 12/16/19 09:00 12/17/19 20:12 Flush - Normal Saline IVF 10 ml Q12HR JANICE Administration - Exam General Appearance: NAD, awake alert ENT: moist mucosa Heart: RRR, no murmur, no gallops, no rubs Respiratory: CTAB, no wheezes, no rales, no ronchi Gastrointestinal: soft, non-distended, normal bowel sounds, no guarding, no rigidity Gastrointestinal - other findings: mild TTP diffusely Extremities: no edema Extremities - other findings: edema appears mostly resolved to me Psychiatric: normal affect, normal behavior, A&O x 3 Hosp A/P (1) Acute on chronic systolic (congestive) heart failure Code(s): I50.23 - ACUTE ON CHRONIC SYSTOLIC (CONGESTIVE) HEART FAILURE Status : Acute (2) Type 2 acute myocardial infarction Code(s): I21.A1 - MYOCARDIAL INFARCTION TYPE 2 Status: Acute (3) Acute respiratory failure with hypoxemia Code(s): J96.01 - ACUTE RESPIRATORY FAILURE WITH HYPOXIA Status: Acute (4) CKD (chronic kidney disease), stage III Code(s): N18.3 - CHRONIC KIDNEY DISEASE, STAGE 3 (MODERATE) Status: Chronic (5) Hyperkalemia Code(s): E87.5 - HYPERKALEMIA Status: Resolved (6) Hypothyroidism Code(s): E03.9 - HYPOTHYROIDISM, UNSPECIFIED Status: Chronic (7) Diarrhea Code(s): R19.7 - DIARRHEA, UNSPECIFIED Status: Acute - Plan IV Lasix, fluid restriction, seems to be diuresing decently Cardiology consulted- plan for medical management at this time Creatinine resolved with diuresis replacing potassium Spoke with Dr. Adair and he states no TIA-I or ARB due to kidneys not tolerating in the past Will increase Carvedilol to better control blood pressure Check C.diff, if neg can give Lomotil DVT Proph: SCDs
[2019-12-18] MEDS: Gabapentin 300 MG CAP PO SCH ×2 (08:49→20:21)
[2019-12-18] MEDS: Multivitamin W/ Minerals 1 TAB PO SCH (08:49)
[2019-12-18] MEDS: Metoclopramide HCl 10 MG TAB PO SCH (08:50)
[2019-12-18] MEDS: Stress 600 With Zinc 1 TAB PO SCH (08:50)
[2019-12-18] MEDS: DULoxetine 60 MG CAP PO SCH (08:50)
[2019-12-18] MEDS: Folic Acid 1 MG TAB PO SCH (08:50)
[2019-12-18] MEDS: Apixaban 2.5 MG TAB PO SCH ×2 (08:50→20:21)
[2019-12-18] MEDS: Carvedilol 6.25 MG TAB PO SCH ×2 (08:50→17:10)
--- NOTE | 2019-12-18 09:44 | PRG ---
DATE OF SERVICE: 12/17/2019 TIME OF VISIT: 0830 hours. SUBJECTIVE: Mr. Isabel is resting comfortably. He continues to have edema and shortness of breath, but I think he has improved overall. He has no new complaints. OBJECTIVE: GENERAL: This is a pleasant elderly male, who is in no acute distress. VITAL SIGNS: Vital signs yesterday were stable, but today blood pressure appears to be increasing. I and Os did not show much output, but I do not believe they are accurate. Weight has been accurate today at 117 pounds. HEENT: Head is atraumatic and normocephalic. Mucous membranes are moist. CHEST: Bilateral rales in the bases. CARDIOVASCULAR: Regular rate and rhythm. ABDOMEN: Soft and nontender. EXTREMITIES: No clubbing or cyanosis. He does have a bilateral lower extremity edema. SKIN: Warm and dry. PSYCHIATRIC: Mood and Affect appropriate. LABORATORY DATA: BMP is within normal limits. IMPRESSION: 1. Acute on chronic systolic congestive heart failure. 2. Hypertension. 3. Status post previous automatic implantable cardioverter-defibrillator placement. 4. History of chronic kidney disease. At this time, we will continue IV Lasix. The patient overall is improved and says he is little more comfortable. I will ask the nurse to reweigh him and we will try to get more accurate I and Os. No further changes today. Job ID: [id number]
[2019-12-18] MEDS: Potassium Chloride 10 MEQ TAB PO SCH (17:10)
[2019-12-18] MEDS: Morphine ER 15 MG TAB PO PRN ×2 (17:28→21:49)
[2019-12-18] MEDS: Atorvastatin Calcium 10 MG TAB PO SCH (20:20)
[2019-12-18] MEDS: Triple Antibiotic Oint 1 GM Packet TOP SCH (20:21)
[2019-12-19] MEDS: Morphine ER 15 MG TAB PO PRN ×3 (03:03→12:44)
[2019-12-19] MEDS: Furosemide 40 MG/4 ML VIAL SLOW IVP SCH ×2 (05:34→15:28)
[2019-12-19] MEDS: Levothyroxine Sodium 75 MCG TAB PO SCH (05:34)
[2019-12-19] MEDS: DULoxetine 60 MG CAP PO SCH (08:22)
[2019-12-19] MEDS: Multivitamin W/ Minerals 1 TAB PO SCH (08:22)
[2019-12-19] MEDS: Gabapentin 300 MG CAP PO SCH (08:22)
[2019-12-19] MEDS: Folic Acid 1 MG TAB PO SCH (08:23)
[2019-12-19] MEDS: Potassium Chloride 10 MEQ TAB PO SCH (08:23)
[2019-12-19] MEDS: Triple Antibiotic Oint 1 GM Packet TOP SCH (08:23)
[2019-12-19] MEDS: Carvedilol 6.25 MG TAB PO SCH (08:23)
[2019-12-19] MEDS: Stress 600 With Zinc 1 TAB PO SCH (08:23)
[2019-12-19] MEDS: Apixaban 2.5 MG TAB PO SCH (08:23)
[2019-12-19] MEDS: Metoclopramide HCl 10 MG TAB PO SCH (08:23)
--- NOTE | 2019-12-19 09:10 | PRG ---
DATE OF SERVICE: 12/19/2019 SUBJECTIVE: Mr. Isabel is doing better. He states he is back to baseline. He would like to go home. No current complaints of chest pain, pressure, or shortness of breath. OBJECTIVE: VITAL SIGNS: Blood pressure 142/82, pulse 87, temperature 98.1. LUNGS: Minimal crackles bilaterally. HEART: Regular rate and rhythm. ABDOMEN: Soft, nontender, and nondistended. EXTREMITIES: No edema. PERTINENT LABORATORY DATA: Hemoglobin 13.7, hematocrit 42.4. Creatinine down to 0.99 from 1.08. IMPRESSION: 1. [id number] systolic heart failure. 2. Recent fall. 3. Elevated troponin secondary to type 2 myocardial infarction. 4. Previous abnormal stress study with scar noted to the inferior wall. RECOMMENDATIONS: 1. Mr. Isabel is currently doing well from a symptomatic standpoint. He would like to continue with medical therapy. We would recommend the following: a. Continue Eliquis, atorvastatin, and carvedilol. b. Change Lasix to 40 mg 1 p.o. q.a.m. c. Continue potassium 10 mEq q.a.m. 2. Otherwise, I have no further recommendations. Plan is to follow up as an outpatient. Job ID: [id number]
[2019-12-19 12:19] VITALS: TEMP 98.6
[2019-12-19 16:34] VITALS: BP 124/76
--- NOTE | 2019-12-22 12:51 | DIS ---
DATE OF ADMISSION: 12/15/2019 DATE OF DISCHARGE: 12/19/2019 DISCHARGE DIAGNOSES: 1. Acute on chronic systolic heart failure. 2. Type 2 acute myocardial infarction. 3. Respiratory failure with hypoxemia. 4. Chronic kidney disease stage 3. 5. Hyperkalemia. 6. Hypothyroidism. 7. Diarrhea. HOSPITAL COURSE: The patient is an 84-year-old male who initially presented to the hospital after a fall. Please refer to the H and P for further details. He did have a bruise to his right upper cheek area and also had worsening shortness of breath and was noted to be hypoxic. At this time, the patient was initially admitted, and was noted to be treated for acute CHF exacerbation and also acute hypoxemic respiratory failure. He was started on some diuretics and Cardiology was consulted. He continued to improve with the hospital stay. He did initially have diarrhea and some abdominal pain and he has had a history of Clostridium difficile; however, his diarrhea and abdominal pain resolved and had no more issues. At this time, there was no specimen to be collected. The patient's draw fire operator recommended that he was doing well, he was ambulated, his oxygen saturations were 93% on ambulation. He will continue his Eliquis, atorvastatin, and carvedilol. His changes were made to Lasix 40 mg daily and also potassium 10 mEq daily. Recommended to follow up with his primary care doctor and also with his PCP next week. His elevated troponins were secondary to type 2 myocardial infarct per draw fire operator's recommendations. HOME MEDICATIONS: Will be as of the followin. Coreg 6.25 twice a day. 2. Lasix 40 mg daily. 3. Atorvastatin 10 mg daily. 4. Duloxetine 60 mg daily. 5. Gabapentin 600 mg b.i.d. 6. Levothyroxine 75 mcg daily. 7. Reglan 10 mg daily. 8. Eliquis 5 mg twice a day. 9. Sumatriptan as needed. 10. Potassium 10 mEq one p.o. b.i.d. I recommended the patient to follow up with primary to get blood work checked for his potassium. PHYSICAL EXAMINATION: VITAL SIGNS: On discharge, temperature 98.6, pulse 76, 93% on room air, blood pressure 124/76. GENERAL: He is awake, alert, and oriented x3. Does not appear in distress. CV: S1 and S2 present. No murmurs, rubs, or gallops. He again does have a significant bruise to his right upper cheek bone, which looks intact, improved. He will follow up with his primary for that. ABDOMEN: Soft and nontender. Bowel sounds are present x2. Greater than 35 minutes was spent on discharging this patient, reviewing the records. The patient also had a CT facial bones and CT brain. The patient's CT face indicated no fractures or evidence of dislocation. He just had a right-sided periorbital soft tissue swelling. 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 This was mentioned to the patient and the patient's . The patient's brain CT indicated chronic findings, indicated periventricular and deep white matter hypodensity, evidence of stable small-vessel disease. I recommended the patient that if this happened again to come into the ER and not to wait if he has a fall or if he starts having a headache. Job ID: [id number]
== END 2019-12-19 16:20 | disposition home or self-care (01) | DRG 280 ==
LOC: ERS 17:08 → 2NO 19:34
PROVIDERS: ADMIT Student in an Organized Health Care Education/Training Program; ATTEND Emergency Medicine
DX: I13.0 Hypertensive heart and chronic kidney disease with heart failure and stage 1 through stage 4 chronic kidney disease, or unspecified chronic kidney disease (principal); I50.23 Acute on chronic systolic (congestive) heart failure; I21.A1 Myocardial infarction type 2; J96.01 Acute respiratory failure with hypoxia; N18.3 Chronic kidney disease, stage 3 (moderate); K21.9 Gastro-esophageal reflux disease without esophagitis; K44.9 Diaphragmatic hernia without obstruction or gangrene; E03.9 Hypothyroidism, unspecified; E87.5 Hyperkalemia; E78.5 Hyperlipidemia, unspecified; Z86.718 Personal history of other venous thrombosis and embolism; Z79.01 Long term (current) use of anticoagulants; Z85.46 Personal history of malignant neoplasm of prostate; Z95.810 Presence of automatic (implantable) cardiac defibrillator; Z90.49 Acquired absence of other specified parts of digestive tract
CPT/HCPCS: 36415; 70450; 70486; 71045; 80048; 80053; 82550; 82553; 83880; 84484; 85025; 93005; 93798; 94640; 94760; 96374; J1940

== ENCOUNTER 2020-08-24 11:37 | Outpatient (CLI) | payer MEDICARE ==
--- NOTE | 2020-08-24 12:01 | RAD ---
EXAM: CHEST TWO VIEWS 08/24/2020 11:57 AM HISTORY: Dyspnea COMPARISON: December 15, 2019 FINDINGS: Lungs: There is still elevation of the right hemidiaphragm. There is mild right basilar atelectasis. Left lung is clear. Heart: Stable mild cardiomegaly. Multi lead AICD is unchanged. Pulmonary Vessels: Normal. Costophrenic Angles: Clear. Pneumothorax: None. Osseous Structures: Intact. Additional Findings: Dorsal column stimulator line the midthoracic spine is stable. IMPRESSION: No significant acute intrathoracic disease.
== END 2020-08-24 11:38 | disposition home or self-care (01) ==
LOC: BICRAD 11:37
PROVIDERS: ATTEND Internal Medicine Critical Care Medicine
DX: R06.00 Dyspnea, unspecified (principal)
CPT/HCPCS: 71046

== ENCOUNTER 2020-12-13 10:19 | Inpatient (IN) | payer MEDICARE ==
[2020-12-13 12:34] LABS: #Basophils 0.1 thou/uL (0.0-0.2); #Eosinphils 0.2 thou/uL (0.0-0.7); #Lymphocytes 1.8 thou/uL (1.20-3.40); #Monocytes 0.9 thou/uL (0.11-0.59); #Neutrophils 4.4 thou/uL (1.40-6.50); %Basophils 0.7 % (0.0-1.0); %Eosinophils 2.1 % (0.0-10.0); %Lymphocytes 24.2 % (21.0-51.0); %Monocytes 12.1 % (0.0-10.0); %Neutrophils 60.8 % (42.0-75.0); Band 2 % (5-11); Eosinophils 2 % (0-10); Hemoglobin 13.5 g/dL (14.0-18.0); Lymphocytes 19 % (21-51); MDiff Complete? YES; Mean Corpuscular HGB CONC 31.4 g/dL (32.0-36.0); Mean Corpuscular Hemoglobin 27.6 pg (27.0-31.0); Mean Platelet Volume 6.9 fL (7.4-10.4); Monocytes 10 % (0-10); Neutrophil 62 % (42-75); Platelet Count 228 thou/uL (130-400); Platelet Morphology Comment Appears Adequate; Polychromasia SLIGHT = 2-3 cells (100X) (0-2/hpf); Reactive Lymphocytes 4 % (0-10); Red Blood Cell (RBC) Count 4.88 mill/uL (4.70-6.10); Stomatocytes SLIGHT = 2-5 cells (100X) (0-1/hpf); White Blood Cell (WBC) Count 7.2 thou/uL (4.8-10.8)
[2020-12-13 12:38] LABS: ALT (SGPT) 12 U/L (8-55); AST (SGOT) 23 U/L (5-34); Albumin 3.2 g/dL (3.4-4.8); Alkaline Phosphatase 91 U/L (40-110); Anion Gap 14 mmol/L (10-20); BUN (Urea Nitrogen) 26 mg/dL (8.4-25.7); Bilirubin, Total 0.5 mg/dL (0.2-1.2); Calc. Creatinine Clearance 0 mL/min (70-130); Calcium 9.3 mg/dL (7.8-10.44); Carbon Dioxide 31 mmol/L (23-31); Chloride 101 mmol/L (98-107); Glucose 111 mg/dL (83-110); Potassium 5.1 mmol/L (3.5-5.1); Sodium 141 mmol/L (136-145)
--- NOTE | 2020-12-13 12:47 | RAD ---
Exam: Chest one view HISTORY:Dyspnea Comparison: 08/24/2020 FINDINGS: Cardiac silhouette:Cardiomegaly. Aorta: Stable atherosclerosis Pulmonary vessels: Normal Costophrenic angles: Clear Initial findings: Stable dorsal column stimulator and left-sided transvenous defibrillator. LUNGS: Changes without mass or consolidation. Stable elevation of the right hemidiaphragm. Pneumothorax: None Osseous abnormalities: None IMPRESSION: No acute cardiopulmonary process.
[2020-12-13 13:20] LABS: CKMB 3.5 ng/mL (0-6.6)
[2020-12-13 14:13] LABS: Globulin 3.1 g/dL (2.4-3.5); Protein, Total 6.2 g/dL (5.8-8.1)
[2020-12-13] MEDS ORDERED: Acetaminophen 500 MG TAB ONE (15:44)
[2020-12-13] MEDS ORDERED: Morphine 4 MG/ML VIAL ONE (15:44)
--- NOTE | 2020-12-13 17:30 | PDOC.HHP ---
Hospitalist HPI Hypoxia History of Present Illness: PCP: Dr. Mancini The patient is an 85-year-old male with a past medical history significant for cardiomyopathy, systolic CHF (AICD), chronic back pain, chronic venous insufficiency, prostate cancer status post radiation therapy, hypothyroidism that presents to the emergency department for the above complaint. Apparently, the patient had a scheduled radiofrequency ablation with his pain specialist, Dr. Knutson this morning. However, at that appointment, the patient was n oted to be hypoxic with a oxygen saturation in the mid to high 80s. There is no documented respiratory distress, however, the patient was placed on 2 L nasal cannula and his SPO2 improved to 98%. Upon speaking with the patient, he reports that he has had low oxygen readings at home. He says it has been in the mid to low 80s. He reports feeling short of breath with dyspnea on exertion. He denies any chest pain, heart palpitations or lightheadedness. He reports mild swelling to his lower extremities. He has no history of COPD/asthma. Denies any wheezing. He has had a nonproductive cough that is worse with exertion or bending over to "tie his shoes". He has history of DVT, but is not on any anticoagulation. He has been ambulatory, and recently had a [employer] AICD pacemaker inserted on (11/10). Denies any hemoptysis or pleuritic chest pain. Denies abdominal pain, nausea, vomiting or diarrhea. Denies hematochezia/melena. Denies any dysuria or hematuria. No fever or chills. No recent illness. No sick contacts. ED Course: VITAL SIGNS SunDec 13, 2020 10:20 MALENA Brasher Katelyn BP: 114/61, Pulse: 67, Resp: 18, Temp: 99.1 (Oral), O2 sat: 98 on (2L Oxygen), Time: 12/13/2020 10:20. VITAL SIGNS SunDec 13, 2020 11:28 MALENA Colon Jenifer BP: 121/65, Pulse: 68, Resp: 20 (Non-Labored), Pain: 0, O2 sat: 98 on (3L Oxygen), Time: 12/13/2020 11:28. VITAL SIGNS SunDec 13, 2020 14:22 MALENA Goss Ashlee BP: 162/87, Pulse: 70, Resp: 17, Pain: 0, O2 sat: 100 on (3L Oxygen), Time: 12/13/2020 14:22. VITAL SIGNS SunDec 13, 2020 15:57 MALENA Goss, Kayla BP: 174/98, Pulse: 85, Resp: 18, Temp: 97.8 (Oral), Pain: 8, O2 sat: 97 on (2L Oxygen), Time: 12/13/2020 15:57 EKG V paced, initial troponin 0.038, BNP 247 Chest x-ray negative for any acute process BUN 26, creatinine 1.35 Medications: injection 4 mg IV Push Given 15:52 12/13/2020 Acetaminophen Extra Strength 1 g Oral Given 15:51 12/13/2020 Allergies/Adverse Reactions: Allergy/AdvReac Type Severity Reaction Status Date / Time cefepime HCl [From Maxipime] Allergy Intermediate Rash Verified 01/10/20 08:05 cilastatin sodium Allergy Intermediate Rash Verified 01/10/20 08:05 [From Primaxin] Penicillins Allergy Intermediate Rash Verified 01/10/20 08:05 adhesive Allergy Verified 01/10/20 08:05 imipenem [From Primaxin] Allergy Verified 01/10/20 08:05 Home Medications: Medication Instructions Recorded Confirmed Type Atorvastatin Calcium [Lipitor] 10 mg PO HS 08/13/14 12/15/19 History DULoxetine [Cymbalta] 60 mg PO DAILY 08/13/14 12/15/19 History Gabapentin [Neurontin] 600 mg PO BID 08/13/14 12/15/19 History Levothyroxine Sodium [Synthroid] 75 mcg PO DAILY 08/13/14 12/15/19 History Pantoprazole [Protonix] 40 mg PO BID 08/13/14 12/15/19 History Butalb/Acetaminophen/Caffeine 1 tab PO Q4HR 07/03/19 12/16/19 History [Dqkraj-Jnzxvlwi-Orug 50-325-40] Potassium Chloride [Klor-Con 10] 1 tab PO BID 11/10/19 12/15/19 History SUMAtriptan [SUMAtriptan Nasal 1 spr NASAL PRN PRN 11/10/19 12/15/19 History [place]] Apixaban [Eliquis] 5 mg PO BID 12/15/19 12/16/19 History Acetaminophen [Tylenol Arthritis] 650 mg PO BID 12/16/19 12/16/19 History Folic Acid 1 mg PO DAILY 12/16/19 12/16/19 History Metoclopramide HCl [Reglan] 10 mg PO DAILY 12/16/19 12/16/19 History Morphine Sulfate [Arymo ER] 15 mg PO Q4HR PRN 12/16/19 12/16/19 History Multivit-Min/FA/Lycopen/Lutein 1 tablet PO DAILY 12/16/19 12/16/19 History [Centrum Silver Tablet] Vit B Comp/C/Folic/Iron/Vit E 1 tablet PO DAILY 12/16/19 12/16/19 History [Vitamin B Complex Tablet] Carvedilol [Coreg] 6.25 mg PO BID-WM #60 tab 12/19/19 Rx Furosemide [Lasix] 40 mg PO DAILY #30 tab 12/19/19 Rx Past History: PMHx: Systolic CHF, cardiomyopathy (AICD 11/10), HTN, HLD, prostate cancer status post radiation, chronic back pain, chronic venous insufficiency, GERD, hypothyroidism PSHx: AICD (11/10), cholecystectomy, abdominal aortic repair, back surgery, left foot surgery, right inguinal hernia, L3-L4 laminae, vasectomy FHx: Contributory for cardiac disease and cancer Social: Lives with a spouse at home. Former smoker. No heavy alcohol intake. No illicit drug use. He ambulates with a cane and roller walker intermittently. Does not work. Hospitalist HPI ROS All other systems reviewed; all pertinent +/- noted in HPI/Subj Hospitalist Exam Vitals: Vital Signs (12 hours) Temp Pulse Resp BP Pulse Ox 12/13/20 17:25 98.0 F 87 20 138/71 95 General Appearance: NAD, awake alert. negative: ill appearing Eye: PERRL, anicteric sclera ENT: normocephalic atraumatic, moist mucosa Neck: supple, no lymphadenopathy, no carotid bruit Heart: RRR, no gallops, no rubs, normal peripheral pulses, II/IV Respiratory: CTAB, no wheezes, no rales, no ronchi, no tachypnea Respiratory - other findings: 2 L nasal cannula Gastrointestinal: soft, non-tender, non-distended, normal bowel sounds, no guarding, no rigidity Extremities: no clubbing. negative: no edema (Trace edema bilaterally lower extremities) Skin: negative: no rashes Skin - other findings: Bilateral lower extremity hemosiderin staining no open lesions Psychiatric: normal affect, A&O x 3 Hospitalist Results Result Diagrams: 12/13/20 11:57 12/13/20 11:57 Lab results: Laboratory Last Values WBC 7.2 thou/uL (4.8-10.8) 12/13/20 11:57 RBC 4.88 mill/uL (4.70-6.10) 12/13/20 11:57 Hgb 13.5 g/dL (14.0-18.0) L 12/13/20 11:57 Hct 43.0 % (42.0-52.0) 12/13/20 11:57 MCV 88.0 fL (78.0-98.0) 12/13/20 11:57 MCH 27.6 pg (27.0-31.0) 12/13/20 11:57 MCHC 31.4 g/dL (32.0-36.0) L 12/13/20 11:57 RDW 13.0 % (11.5-14.5) 12/13/20 11:57 Plt Count 228 thou/uL (130-400) 12/13/20 11:57 MPV 6.9 fL (7.4-10.4) L 12/13/20 11:57 Neutrophils % 60.8 % (42.0-75.0) 12/13/20 11:57 Neutrophils % (Manual) 62 % (42-75) 12/13/20 11:57 Band Neuts % (Manual) 2 % (5-11) L 12/13/20 11:57 Lymphocytes % 24.2 % (21.0-51.0) 12/13/20 11:57 Lymphocytes % (Manual) 19 % (21-51) L 12/13/20 11:57 Reactive Lymphs % 4 % (0-10) 12/13/20 11:57 Monocytes % 12.1 % (0.0-10.0) H 12/13/20 11:57 Monocytes % (Manual) 10 % (0-10) 12/13/20 11:57 Eosinophils % 2.1 % (0.0-10.0) 12/13/20 11:57 Eosinophils % (Manual) 2 % (0-10) 12/13/20 11:57 Basophils % 0.7 % (0.0-1.0) 12/13/20 11:57 Basophils % (Manual) 1 % (0-2) 12/13/20 11:57 Neutrophils # 4.4 thou/uL (1.40-6.50) 12/13/20 11:57 Lymphocytes # 1.8 thou/uL (1.20-3.40) 12/13/20 11:57 Monocytes # 0.9 thou/uL (0.11-0.59) H 12/13/20 11:57 Eosinophils # 0.2 thou/uL (0.0-0.7) 12/13/20 11:57 Basophils # 0.1 thou/uL (0.0-0.2) 12/13/20 11:57 Plt Morphology Comment Appears Adequate 12/13/20 11:57 Polychromasia SLIGHT = 2-3 cells (100X) (0-2/hpf) 12/13/20 11:57 Stomatocytes SLIGHT = 2-5 cells (100X) (0-1/hpf) 12/13/20 11:57 Sodium 141 mmol/L (136-145) 12/13/20 11:57 Potassium 5.1 mmol/L (3.5-5.1) 12/13/20 11:57 Chloride 101 mmol/L (98-107) 12/13/20 11:57 Carbon Dioxide 31 mmol/L (23-31) 12/13/20 11:57 Anion Gap 14 mmol/L (10-20) 12/13/20 11:57 BUN 26 mg/dL (8.4-25.7) H 12/13/20 11:57 Creatinine 1.35 mg/dL (0.7-1.3) H 12/13/20 11:57 Estimated GFR (MDRD) 50 12/13/20 11:57 Glucose 111 mg/dL (83-110) H 12/13/20 11:57 Calcium 9.3 mg/dL (7.8-10.44) 12/13/20 11:57 Total Bilirubin 0.5 mg/dL (0.2-1.2) 12/13/20 11:57 AST 23 U/L (5-34) 12/13/20 11:57 ALT 12 U/L (8-55) 12/13/20 11:57 Alkaline Phosphatase 91 U/L (40-110) 12/13/20 11:57 CK-MB (CK-2) 3.5 ng/mL (0-6.6) 12/13/20 11:57 Troponin I 0.038 ng/mL (< 0.028) H 12/13/20 11:57 B-Natriuretic Peptide 247.7 pg/mL (0-100) H 12/13/20 11:57 Serum Total Protein 6.2 g/dL (5.8-8.1) 12/13/20 11:57 Albumin 3.2 g/dL (3.4-4.8) L 12/13/20 11:57 Globulin 3.1 g/dL (2.4-3.5) 12/13/20 11:57 Albumin/Globulin Ratio 1.0 g/dL (1.2-2.2) L 12/13/20 11:57 Chest x-ray Status: report reviewed by me Additional Comments: IMPRESSION: No acute cardiopulmonary process. EKG Status: image reviewed by me Additional Comments: V paced, sgarbossa criteria not met Hospitalist H&P A/P (1) Hypoxia Code(s): R09.02 - HYPOXEMIA Status: Acute (2) Acute on chronic systolic CHF (congestive heart failure) Code(s): I50.23 - ACUTE ON CHRONIC SYSTOLIC (CONGESTIVE) HEART FAILURE Status: Acute (3) HTN (hypertension) Code(s): I10 - ESSENTIAL (PRIMARY) HYPERTENSION Status: Chronic (4) HLD (hyperlipidemia) Code(s): E78.5 - HYPERLIPIDEMIA, UNSPECIFIED Status: Chronic (5) Chronic venous insufficiency Status: Chronic (6) Chronic back pain Code(s): M54.9 - DORSALGIA, UNSPECIFIED; G89.29 - OTHER CHRONIC PAIN Status: Chronic (7) GERD (gastroesophageal reflux disease) Code(s): K21.9 - GASTRO-ESOPHAGEAL REFLUX DISEASE WITHOUT ESOPHAGITIS Status: Chronic (8) Hypothyroidism Code(s): E03.9 - HYPOTHYROIDISM, UNSPECIFIED Status: Chronic (9) Prostate cancer Code(s): C61 - MALIGNANT NEOPLASM OF PROSTATE Status: Chronic (10) History of DVT (deep vein thrombosis) Code(s): Z86.718 - PERSONAL HISTORY OF OTHER VENOUS THROMBOSIS AND EMBOLISM Status: Chronic Plan: Patient with systolic CHF (AICD), chronic back pain, venous insufficiency presents to the hospital for hypoxia and dyspnea on exertion. The patient was found to be hypoxic with an SPO2 of 85% Dr. Knutson's office prior to his scheduled radiofrequency ablation for his chronic back pain. #Hypoxia Documented 85% room air Dr. Knutson's office office. Patient endorses DEWITT/hypoxia for several days at home. CXR no acute process, BNP mildly elevated to 247 Troponin 0.38, EKG V-paced , No reported chest pain. Upon assessment, NAD 2L NC 98%. Will check D-dimer. -age adjusted appropriate Covid pending. #Acute on chronic Systolic CHF BNP 247, was 31 (12-20) Cardiology consulted in ED. Ordered Lasix, strict VIV's, fluid restriction, restarted BB Trend troponins, check DD Daily weights #HTN Presented normotensive. Restart home dose BB. #HLD Restart home dose Lipitor. Check FLP. #Chronic venous insufficiency Chronic, stable. #Chronic back pain Today was scheduled for radiofrequency ablation at Dr. Knutson's office. History L3/L4 laminectomy. Restart home pain medications after reconciliation by nursing. #GERD Restart home dose Protonix. #Hypothyroidism Check TSH. Restart home dose Synthroid. #Prostate cancer Chronic. Status post radiation therapy. #History of DVT Not currently on any blood thinners. LMWH for DVT prophylaxis. Protonix for GI prophylaxis. CODE STATUS is full code. Discussed the case with attending physician, Dr. Fernandez who agrees with plan of care.
[2020-12-13 17:46] LABS: Troponin I 0.049 ng/mL (< 0.028)
[2020-12-13] MEDS ORDERED: Furosemide 40 MG/4 ML VIAL SLOW IVP SCH (18:15)
[2020-12-13] MEDS ORDERED: Furosemide 40 MG/4 ML VIAL ONE (18:46)
[2020-12-13] MEDS ORDERED: Acetaminophen 325 MG TAB PO PRN (19:23)
[2020-12-13] MEDS ORDERED: Calcium Carbonate 500 MG ChewTAB PO PRN (19:23)
[2020-12-13] MEDS ORDERED: Senokot S 8.6-50 MG TAB PO PRN (19:23)
[2020-12-13] MEDS ORDERED: Ondansetron PF 4 MG/2 ML Vial IVP PRN (19:23)
[2020-12-13] MEDS ORDERED: Ondansetron ODT 4 MG TAB PO PRN (19:23)
[2020-12-13] MEDS ORDERED: Potassium Chloride 20 MEQ TAB ONE (22:17)
[2020-12-13] MEDS: Potassium Chloride 10 MEQ TAB PO SCH (22:22)
--- NOTE | 2020-12-13 22:22 | CON ---
DATE OF CONSULTATION: HISTORY: Jeffrey Isabel is an 85-year-old white male, long-time patient of Dr. Adair. He does have a cardiomyopathy and has declined catheterization in the past for further evaluation of this. He also had left bundle-branch block in October 2019, underwent placement of a biventricular ICD. He was last seen in the office in September 2020 and was doing fairly well at that time with mild lower extremity edema. His last ejection fraction was 20% to 25% in September 2019. In July 2019, Lexiscan Cardiolite test revealed evidence of infarction in the inferior segment and global hypokinesis. He now complains of worsening shortness of breath over the last week. He has this with walking in the house, but denies any PND. He denies any chest discomfort. He was in to see Dr. Knutson today and was found to have O2 saturation of 80% on room air and so was sent to the emergency room. He has been placed on oxygen and given morphine 4 mg IV. He states his breathing has improved. He denies any fever, chills, or sputum production at home. He has had both COVID vaccines. PAST MEDICAL HISTORY: Hypertension, hypercholesterolemia, cardiomyopathy, history of non-STEMI, history of DVT, left bundle-branch block, chronic venous insufficiency, chronic renal insufficiency. MEDICATIONS: 1. Carvedilol 3.125 b.i.d. 2. Aspirin 81 daily. 3. Synthroid 75 mcg daily. 4. Eliquis 5 mg b.i.d. 5. Folic acid 1 mg daily. 6. Furosemide 40 b.i.d. 7. Neurontin 600 b.i.d. 8. Morphine 15 mg q.4 hours p.r.n. 9. Protonix 40 b.i.d. 10. KCl 10 mEq b.i.d. ALLERGIES: MAXIPIME, PRIMAXIN, PENICILLINS, AND ADHESIVES. SOCIAL HISTORY: He smoked in the past, stopped 50 years ago. 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 REVIEW OF SYSTEMS: 10-point review of systems is otherwise unremarkable. PHYSICAL EXAMINATION: VITAL SIGNS: On presentation, blood pressure is 113/61 but has gone up to 174/98, pulse 85. HEENT: PERRL. CHEST: Clear. CARDIAC: S1 and S2 normal without any S3, S4, or murmurs. ABDOMEN: Normal bowel sounds without tenderness or organomegaly. EXTREMITIES: Revealed 1+ pretibial edema. NEUROLOGIC: Grossly intact. SKIN: Warm and dry. LABORATORY DATA: EKG reveals atrial sensing and ventricular pacing. Hemoglobin 13.5, hematocrit 43.0, white count 7200, platelets 228,000. Sodium 141, potassium 5.1, chloride 31, BUN 26, creatinine 1.35. Troponin I is 0.038. BNP 247.7, last BNP was 31.4. Chest x-ray reveals no acute changes. IMPRESSION: 1. Increased dyspnea, which probably is related to his chronic systolic heart failure. 2. Probable coronary artery disease, although he has never had catheterization. 3. Status post biventricular ICD placement. 4. Hypertension. 5. Hypercholesterolemia. 6. Former smoker. PLAN: I will give the patient one dose of 40 mg of Lasix IV. His ICD will be interrogated. Further therapy will be directed by his clinical response. Job ID: [id number] MTDD
[2020-12-13 22:32] VITALS: BMI 26.6
[2020-12-13 22:52] LABS: SARS-CoV-2 PCR by NAA Not Detected (NotDetected)
[2020-12-13] MEDS: Gabapentin 300 MG CAP PO SCH (23:00)
[2020-12-13] MEDS: Atorvastatin Calcium 10 MG TAB PO SCH (23:00)
[2020-12-14 06:26] LABS: Hemoglobin 13.1 g/dL (14.0-18.0); Mean Corpuscular HGB CONC 31.6 g/dL (32.0-36.0); Mean Corpuscular Hemoglobin 29.5 pg (27.0-31.0); Mean Corpuscular Volume 93.3 fL (78.0-98.0); Mean Platelet Volume 6.8 fL (7.4-10.4); Platelet Count 211 thou/uL (130-400); RBC Distribution Width 13.4 % (11.5-14.5); Red Blood Cell (RBC) Count 4.45 mill/uL (4.70-6.10); White Blood Cell (WBC) Count 5.5 thou/uL (4.8-10.8)
[2020-12-14 06:28] LABS: Anion Gap 12 mmol/L (10-20); BUN (Urea Nitrogen) 26 mg/dL (8.4-25.7); Calc. Creatinine Clearance 48 mL/min (70-130); Calcium 9.2 mg/dL (7.8-10.44); Carbon Dioxide 36 mmol/L (23-31); Cardiac Risk 2.7 (Less than 4.5); Chloride 100 mmol/L (98-107); Cholesterol 109 mg/dl (< 200 Desired); Glucose 81 mg/dL (83-110); HDL Cholesterol 41 mg/dL (>60 Neg Risk); LDL Cholesterol, Calculated 49 mg/dL; Potassium 4.7 mmol/L (3.5-5.1); Sodium 143 mmol/L (136-145); Triglycerides 94 mg/dL (Less than 150)
[2020-12-14 06:51] LABS: Band 4 % (5-11); Lymphocytes 26 % (21-51); MDiff Complete? YES; Monocytes 5 % (0-10); Neutrophil 63 % (42-75); Platelet Morphology Comment Appears Adequate; RBC Morphology Normal; Reactive Lymphocytes 2 % (0-10)
[2020-12-14] MEDS ORDERED: Potassium Chloride 20 MEQ TAB ONE (08:10)
[2020-12-14] MEDS: Carvedilol 3.125 MG TAB PO SCH ×2 (08:20→18:20)
[2020-12-14] MEDS: DULoxetine 60 MG CAP PO SCH (08:20)
[2020-12-14] MEDS: Levothyroxine Sodium 75 MCG TAB PO SCH (08:20)
[2020-12-14] MEDS: Enoxaparin Sodium 40 MG/0.4 ML SYRINGE SC SCH (08:20)
[2020-12-14] MEDS: Potassium Chloride 10 MEQ TAB PO SCH ×4 (08:20→21:42)
[2020-12-14] MEDS: Aspirin 81 mg Enteric Coated Tablet PO SCH (08:20)
[2020-12-14] MEDS ORDERED: Furosemide 40 MG TAB PO SCH (09:00)
[2020-12-14] MEDS: Gabapentin 300 MG CAP PO SCH ×2 (09:30→21:41)
--- NOTE | 2020-12-14 12:27 | PDOC.BPN ---
- Brief Progress Note [id number] HP dicated
--- NOTE | 2020-12-14 13:15 | PRG ---
DATE OF SERVICE: 12/14/2020 SUBJECTIVE: The patient is still short of breath, orthopneic, off the bed and chair, had an on and off AFib. OBJECTIVE: GENERAL: The patient is awake, orthopneic, in mild distress. VITAL SIGNS: Blood pressure 122/74, pulse is 93, respiratory rate is 18, temperature is 98, oxygen saturation is 93% on 2 L/minute nasal cannula. HEAD AND NECK: Normocephalic. Neck is supple. CHEST: Few bibasilar crackles. HEART: Distant breath sounds. ABDOMEN: Soft, nontender. EXTREMITIES: Bilateral edema more on the right side. NEUROLOGIC: Awake, alert, oriented. PSYCH: Unable to assess. LABORATORY DATA: Sodium is 143, potassium 4.7, BUN 26, creatinine 1.2. Troponin 0.05. D-dimer 0.8. WBC is 5.5, hemoglobin 13.1, platelets 211. ASSESSMENT: 1. Acute hypoxic respiratory failure requiring oxygen. 2. Systolic heart failure with exacerbation. 3. Bilateral leg edema, more on the right side. 4. Hypertension. 5. Hyperlipidemia. 6. Gastroesophageal reflux disease. 7. Hypothyroidism. 8. Prostate cancer. 9. History of deep venous thrombosis. 10. Automatic implantable cardioverter-defibrillator. PLAN: 1. We will continue with IV diuresis. 2. Continue with oxygen to keep saturation more than 92%. 3. We will order venous Doppler of both legs. Both legs are swollen, more on the right side. He has a history of DVT in the past and currently is not on any anticoagulation except for DVT prophylaxis. 4. Appreciate Cardiology input. Job ID: [id number]
--- NOTE | 2020-12-14 15:32 | CON ---
DATE OF CONSULTATION: 12/14/2020 SUBJECTIVE: Mr. Isabel was recently admitted for hypoxia and fluid overload. Mr. Isabel has a previous history of cardiomyopathy with LVEF of 20% to 25%. He has not been interested in ICD in the past. He has diuresed and appears to have improved. OBJECTIVE: VITAL SIGNS: Blood pressure 154/73, pulse 83, temperature 98.9. LUNGS: Minimal crackles noted bilaterally. HEART: Regular rate and rhythm. ABDOMEN: Soft, nontender, and nondistended. EXTREMITIES: 1 to 2+ pitting edema. PERTINENT LABORATORY DATA: Hemoglobin 13.1, hematocrit 41.5. Creatinine 1.28. I's and O's not well documented. IMPRESSION: 1. Acute on chronic systolic heart failure. 2. Hypoxia. 3. Cardiomyopathy. RECOMMENDATIONS: 1. Continue the following medications: a. Aspirin 81 q.a.m. b. Atorvastatin 10 at bedtime. c. Carvedilol 3.125 one p.o. b.i.d. d. Lasix IV. 2. Monitor I's and O's aggressively. 3. Monitor daily weights aggressively. 4. Restrict fluids and salt. Mr. Isabel's O2 saturation this morning was 92%, appears to be improving. Job ID: [id number]
--- NOTE | 2020-12-14 15:35 | ULT ---
Bilateral lower extremity venous Doppler ultrasound: 12/14/2020 COMPARISON: 05/27/2019 HISTORY: Bilateral lower extremity swelling, assess for DVT TECHNIQUE: Multiplanar grayscale sonographic imaging of the venous structures of bilateral lower extr emities obtained with color flow and spectral analysis FINDINGS: The greater saphenous vein on the right appears unremarkable. There is a linear echogenic material within the right common femoral vein with incomplete compression . This linear echogenic material extends into the proximal right femoral vein which is also not fully compressible. The right profunda femoral vein appears patent. The mid and distal right femoral vein and the right popliteal vein appear patent. The left posterior tibial vein could not be discretely visualized. The left common femoral vein and greater saphenous vein appear patent. There is a linear band of echo genic material within the proximal left femoral vein, similar to the finding seen on the right. The proximal left femoral vein in this region is not fully compressible. Similar linear filling defect wi thin the left mid femoral vein noted. The left distal femoral vein appears unremarkable. The left popliteal vein demonstrates an internal linear echogenic focus and is not fully compressible. Left posterior tibial vein appears patent. IMPRESSION: Bandlike areas of filling defect with incomplete compression involving deep venous struct ures bilaterally as above. Findings are consistent with chronic DVT, similar when compared to the prior examination. No evidence for acute DVT is seen on this exam.
[2020-12-14] MEDS: Morphine ER 15 MG TAB PO SCH ×2 (16:21→21:40)
[2020-12-14] MEDS: Furosemide 40 MG/4 ML VIAL SLOW IVP SCH (16:21)
[2020-12-14] MEDS: Acetaminophen ER (8hr) 650 MG TAB PO SCH (21:38)
[2020-12-14] MEDS: Atorvastatin Calcium 10 MG TAB PO SCH (21:41)
[2020-12-15 04:46] LABS: Anion Gap 10 mmol/L (10-20); BUN (Urea Nitrogen) 24 mg/dL (8.4-25.7); Calc. Creatinine Clearance 54 mL/min (70-130); Calcium 8.9 mg/dL (7.8-10.44); Carbon Dioxide 36 mmol/L (23-31); Chloride 101 mmol/L (98-107); Glucose 104 mg/dL (83-110); Potassium 4.1 mmol/L (3.5-5.1); Sodium 143 mmol/L (136-145)
[2020-12-15 04:48] LABS: Hemoglobin 12.8 g/dL (14.0-18.0); Mean Corpuscular HGB CONC 31.9 g/dL (32.0-36.0); Mean Corpuscular Hemoglobin 29.7 pg (27.0-31.0); Mean Corpuscular Volume 93.1 fL (78.0-98.0); Mean Platelet Volume 6.8 fL (7.4-10.4); Platelet Count 204 thou/uL (130-400); RBC Distribution Width 13.3 % (11.5-14.5); White Blood Cell (WBC) Count 5.7 thou/uL (4.8-10.8)
[2020-12-15 05:19] LABS: Band 2 % (5-11); Eosinophils 1 % (0-10); Lymphocytes 25 % (21-51); MDiff Complete? YES; Monocytes 9 % (0-10); Neutrophil 52 % (42-75); Platelet Morphology Comment Appears Adequate; Reactive Lymphocytes 11 % (0-10)
[2020-12-15] MEDS: Levothyroxine Sodium 75 MCG TAB PO SCH (06:06)
[2020-12-15] MEDS: Furosemide 40 MG/4 ML VIAL SLOW IVP SCH ×2 (06:06→14:20)
[2020-12-15] MEDS: Morphine ER 15 MG TAB PO SCH ×2 (09:07→14:19)
[2020-12-15] MEDS: Acetaminophen ER (8hr) 650 MG TAB PO SCH (09:07)
[2020-12-15] MEDS: Enoxaparin Sodium 40 MG/0.4 ML SYRINGE SC SCH (09:07)
[2020-12-15] MEDS: Potassium Chloride 10 MEQ TAB PO SCH ×2 (09:08→09:10)
[2020-12-15] MEDS: Gabapentin 300 MG CAP PO SCH (09:08)
[2020-12-15] MEDS: Carvedilol 3.125 MG TAB PO SCH (09:09)
[2020-12-15] MEDS: DULoxetine 60 MG CAP PO SCH (09:09)
[2020-12-15] MEDS: Aspirin 81 mg Enteric Coated Tablet PO SCH (09:09)
--- NOTE | 2020-12-15 11:52 | PQF ---
CLINICAL DOCUMENTATION CLARIFICATION FORM: Dear DR. Smalls Date: 12/15/20201129 Please exercise your independent, professional judgment in responding to the clarification form. Clinical indicators are provided on the bottom of this form for your review. Please check appropriate box(es): [ ] Type 2 ND (T2MI) secondary to: [ ]Acute on Chronic Systolic Congestive Heart Failure [ ] Acute Hypoxic Respiratory Failure [ /] Eevated Troponin I- insignificant lab value [ ] Other: [ ] Takotsubo syndrome [ ] Other diagnosis [ ] Unable to determine In addition, please specify: Present on Admission (POA): [ ] Yes [ ] No [ ] Unable to determine For continuity of documentation, please document condition throughout progress notes and discharge summary. Thank You. To be completed by CDI/Coding staff for physician review: CLINICAL INDICATORS - SIGNS / SYMPTOMS / LABS / RESULTS AND LOCATION IN EMR LABS: 12/13 TROPONIN I 0.038. >. 0.049 > 0.050 The patient is still short of breath, orthopneic, had an on and off AFib (KATELYN/ Slim) 12/14 RISK/ RESULTS AND LOCATION IN EMR Acute Hypoxic Respiratory Failure, Acute on Chronic Systolic CHF , HTN, HLD (KATELYN/ Slim) 12/14 TREATMENTS / RESULTS AND LOCATION IN EMR Supplemental oxygen ( 12/13 present) Serial troponin I ( 12/13) Cardiology Consult ( 12/13) Thank You! CDS Signature: Carissa Hughes RN. Phone #: [phone] Date: 12/15/20 1130 This is a permanent part of the Medical Record [facility]
[2020-12-15 12:25] VITALS: BP 168/77; TEMP 98.2
--- NOTE | 2020-12-15 16:17 | PDOC.BPN ---
- Brief Progress Note [id number] Discharge summary dictated
--- NOTE | 2020-12-16 06:23 | DIS ---
DATE OF ADMISSION: 12/13/2020 DATE OF DISCHARGE: 12/15/2020 DISCHARGE DIAGNOSES: 1. Acute hypoxic respiratory failure, improved. 2. Acute on chronic systolic heart failure, improved. 3. Bilateral leg edema, improved. 4. Hypertension. 5. Hyperlipidemia. 6. Gastroesophageal reflux disease. 7. Hypothyroidism. 8. Prostate cancer. 9. History of deep venous thrombosis. 10. Automatic implantable cardioverter defibrillator. HOSPITAL COURSE: Mr. Isabel is an 85-year-old male with past medical history of systolic heart failure, AICD, chronic venous insufficiency, prostate cancer, radiation therapy, hypothyroidism, among others, presented to the emergency room with shortness of breath and low oxygen saturation. Oxygen saturation was in the low 80s. Placed on nasal cannula. On workup in the emergency room, the patient was fluid overloaded with swelling of both lower extremities. The patient was started on IV diuresis with overall improvement in his breathing, oxygenation. Today, the patient's oxygen saturation is in the 90s on room air. Initially, we thought the patient will be discharged on home oxygen, but then as per nurse, the patient was ambulating and his saturation was in the 90s. Discharge diagnoses, as above. PLAN: The patient to be discharged home. The patient will be discharged home on furosemide 80 mg twice a day for the next few days and then the patient can go back to 80 mg once a day and to resume the rest of his home medications. While in the hospital, the patient was seen by Cardiology, Dr. Adair, who cleared the patient for discharge. The patient is to follow with his primary care physician within one or two weeks. The patient was discharged in stable condition. DIET: Heart healthy diet. ACTIVITY: As tolerated. Total time spent in discharging the patient is 60 minutes. Job ID: [id number]
--- NOTE | 2020-12-16 10:51 | PRG ---
DATE OF SERVICE: 12/15/2020 SUBJECTIVE: Mr. Isabel is doing much better. His saturations are 94% to 96% on room air. He has had significant diuresis. OBJECTIVE: VITAL SIGNS: Blood pressure 120/70, pulse 80, respirations 20. LUNGS: Minimal crackles bilaterally. HEART: Regular rate and rhythm. ABDOMEN: Soft, nontender, nondistended. EXTREMITIES: 1+ pitting edema. IMPRESSION: 1. Acute on chronic systolic heart failure. 2. Hypoxia. 3. Likely ischemic cardiomyopathy. RECOMMENDATIONS: Mr. Isabel is currently doing well. We will continue current medical therapy. His Lasix has been switched to p.o. dosing. We will also recommend continuing aspirin in addition to atorvastatin and carvedilol. He has had renal insufficiency and we will avoid TIA inhibitor therapy and ARB. Catarino for discharge. Job ID: [id number]
== END 2020-12-15 15:24 | disposition home or self-care (01) | DRG 291 ==
LOC: ERS 10:19 → ERHOLD 15:49 → 2NO 12-14 12:51
PROVIDERS: ADMIT Internal Medicine; ATTEND Internal Medicine
DX: I11.0 Hypertensive heart disease with heart failure (principal); J96.01 Acute respiratory failure with hypoxia; Z20.822 Contact with and (suspected) exposure to COVID-19; I50.23 Acute on chronic systolic (congestive) heart failure; I42.9 Cardiomyopathy, unspecified; E78.5 Hyperlipidemia, unspecified; E03.9 Hypothyroidism, unspecified; M54.9 Dorsalgia, unspecified; I87.2 Venous insufficiency (chronic) (peripheral); E78.00 Pure hypercholesterolemia, unspecified; K21.9 Gastro-esophageal reflux disease without esophagitis; G89.29 Other chronic pain; Z85.46 Personal history of malignant neoplasm of prostate; Z87.891 Personal history of nicotine dependence; Z90.79 Acquired absence of other genital organ(s); Z79.899 Other long term (current) drug therapy; Z88.1 Allergy status to other antibiotic agents; Z88.0 Allergy status to penicillin; Z88.8 Allergy status to other drugs, medicaments and biological substances; Z79.890 Hormone replacement therapy; Z79.01 Long term (current) use of anticoagulants; Z95.810 Presence of automatic (implantable) cardiac defibrillator; Z80.9 Family history of malignant neoplasm, unspecified; Z82.49 Family history of ischemic heart disease and other diseases of the circulatory system; Z86.718 Personal history of other venous thrombosis and embolism
CPT/HCPCS: 36415; 71045; 80048; 80053; 80061; 82553; 83735; 83880; 84443; 84484; 85025; 85379; 87635; 93005; 93970; 96374; J1650; J1940; J2270; U0003; U0005

== ENCOUNTER 2022-03-23 14:12 | Outpatient (CLI) | payer MEDICARE | END 2022-03-23 14:13 | disposition home or self-care (01) | LOC: BICRAD 14:12 | PROVIDERS: ATTEND Anesthesiology Pain Medicine | DX: M19.012 Primary osteoarthritis, left shoulder (principal); M81.0 Age-related osteoporosis without current pathological fracture ==

== ENCOUNTER 2022-07-26 09:36 | Outpatient (CLI) | payer MEDICARE | END 2022-07-26 09:37 | disposition home or self-care (01) | LOC: RAD 09:36 | PROVIDERS: ATTEND Internal Medicine Critical Care Medicine | DX: R06.09 Other forms of dyspnea (principal); J98.6 Disorders of diaphragm; R91.8 Other nonspecific abnormal finding of lung field | CPT/HCPCS: 71046 ==

== ENCOUNTER 2022-08-30 13:25 | Outpatient (CLI) | payer MEDICARE | END 2022-08-30 13:26 | disposition home or self-care (01) | LOC: BICRAD 13:25 | PROVIDERS: ATTEND Urology | DX: N20.0 Calculus of kidney (principal) | CPT/HCPCS: 74018 ==

== ENCOUNTER 2022-09-12 11:33 | Emergency (ER) | payer OTHER, MEDICARE | END 2022-09-12 13:43 | disposition home or self-care (01) | LOC: ERS 11:33 | DX: S00.83XA Contusion of other part of head, initial encounter (principal); K21.9 Gastro-esophageal reflux disease without esophagitis; E03.9 Hypothyroidism, unspecified; E78.5 Hyperlipidemia, unspecified; W01.0XXA Fall on same level from slipping, tripping and stumbling without subsequent striking against object, initial encounter; Z87.891 Personal history of nicotine dependence | CPT/HCPCS: 70450; 70486; 72125 ==

== ENCOUNTER 2023-02-12 10:39 | Outpatient (CLI) | payer MEDICARE | END 2023-02-12 10:40 | disposition home or self-care (01) | LOC: BICRAD 10:39 | PROVIDERS: ATTEND Anesthesiology Pain Medicine | DX: S32.10XA Unspecified fracture of sacrum, initial encounter for closed fracture (principal) | CPT/HCPCS: 72220 ==

== ENCOUNTER 2023-07-26 09:42 | Outpatient (CLI) | payer MEDICARE | END 2023-07-26 09:43 | disposition home or self-care (01) | LOC: RAD 09:42 | PROVIDERS: ATTEND Internal Medicine Critical Care Medicine | DX: R06.00 Dyspnea, unspecified (principal) | CPT/HCPCS: 71046 ==

== ENCOUNTER 2023-10-02 10:43 | Outpatient (CLI) | payer MEDICARE ==
[2023-10-02 13:28] LABS: Hematocrit 42.3 % (38.8-50.0); Hemoglobin 13.1 g/dL (13.5-17.5); Mean Corpuscular Hemoglobin 28.8 pg (27.0-33.0); Mean Platelet Volume 9.5 fl (7.4-10.4); Platelet Count 240 10x3/uL (150-450); Red Blood Cell (RBC) Count 4.55 10x6/uL (4.32-5.72); White Blood Cell (WBC) Count 9.3 10x3/uL (3.5-10.5)
[2023-10-02 13:37] LABS: PTT 34.4 sec (22.0-33.0); Prothrombin Time 10.6 sec (9.5-12.1)
[2023-10-02 13:43] LABS: Anion Gap 16 mmol/L (10-20); BUN (Urea Nitrogen) 27 mg/dL (8.4-25.7); Calc. Creatinine Clearance 0 mL/min (70-130); Carbon Dioxide 30 mmol/L (23-31); Chloride 98 mmol/L (98-107); Estimated GFR 41; Glucose 97 mg/dL (83-110); Potassium 4.7 mmol/L (3.5-5.1); Sodium 139 mmol/L (136-145)
== END 2023-10-02 10:44 | disposition home or self-care (01) ==
LOC: LABBT 10:43
PROVIDERS: ATTEND Urology
DX: Z01.818 Encounter for other preprocedural examination (principal)
CPT/HCPCS: 80048; 85027; 85610; 85730; 87086; 93005; 93010

== ENCOUNTER 2023-10-09 10:59 | Inpatient (IN) | payer MEDICARE ==
[2023-10-02 11:16] VITALS: BMI 23.6
[2023-10-09] MEDS ORDERED: PROPOFOL 20 ML ONE ×2 (12:37→13:05)
[2023-10-09] MEDS ORDERED: fentaNYL PF 100 MCG/2 ML SYRINGE ONE (13:05)
[2023-10-09] MEDS ORDERED: Lidocaine 2% PF 5 ML VIAL ONE (13:06)
[2023-10-09] MEDS ORDERED: Lidocaine 1% MPF 2 ML VIAL ONE (13:11)
[2023-10-09] MEDS ORDERED: LevoFLOXacin 500 mg/D5W 100 ML BAG ONE (13:11)
[2023-10-09] MEDS ORDERED: Lidocaine 1% PF 5 ML VIAL ONE (13:30)
[2023-10-09] MEDS ORDERED: Rocuronium Bromide 10 MG/ML (10ML VIAL) ONE (13:30)
[2023-10-09] MEDS ORDERED: PROPOFOL 200 MG/20 ML VIAL ONE (13:30)
[2023-10-09] MEDS ORDERED: Ondansetron PF 4 MG/2 ML Vial ONE ×2 (13:30→14:23)
[2023-10-09] MEDS ORDERED: SUGAMMADEX SODIUM 200 MG/2 ML VIAL ONE ×2 (14:31→14:34)
[2023-10-09] MEDS ORDERED: Ondansetron HCl/PF 4 MG/2 ML Vial IVP PRN (14:36)
[2023-10-09] MEDS ORDERED: Promethazine HCl 25 MG/ML VIAL IM PRN (14:36)
[2023-10-09] MEDS ORDERED: Hyoscyamine SL 0.125 MG TAB SL PRN (14:44)
[2023-10-09] MEDS ORDERED: Acetaminophen 500 MG TAB PO PRN (14:44)
[2023-10-09] MEDS ORDERED: Fioricet 325/50/40 mg Tablet PO PRN (14:58)
[2023-10-09] MEDS ORDERED: SUMATRIPTAN 5 MG L NARE PRN (15:02)
[2023-10-09] MEDS ORDERED: Hyoscyamine SL 0.125 MG TAB ONE (15:08)
[2023-10-09] MEDS ORDERED: fentaNYL 50 mcg/mL 1 mL Vial ONE ×3 (15:08→15:48)
[2023-10-09] MEDS: D5 1/2 NS w/20 mEq KCL 1,000 ML IV SCH (17:13)
[2023-10-09] MEDS: Carvedilol 6.25 MG TAB PO SCH (17:14)
[2023-10-09] MEDS: Furosemide 40 MG TAB PO SCH (20:25)
[2023-10-09] MEDS: Gabapentin 300 MG CAP PO SCH (20:25)
[2023-10-09] MEDS: Docusate 100 MG CAP PO SCH (20:26)
[2023-10-09] MEDS: Atorvastatin Calcium 10 MG TAB PO SCH (20:26)
[2023-10-09] MEDS: Morphine IR Tab 15 MG TAB PO SCH (20:27)
[2023-10-10] MEDS: Levothyroxine Sodium 88 MCG TAB PO SCH (04:29)
[2023-10-10] MEDS: D5 1/2 NS w/20 mEq KCL 1,000 ML IV SCH ×2 (04:29→18:13)
[2023-10-10 05:30] LABS: #Eosinphils 0.1 thou/uL (0.0-0.7); #Monocytes 0.8 thou/uL (0.11-0.59); #Neutrophils 4.6 thou/uL (1.40-6.50); %Basophils 0.5 % (0.0-1.0); %Lymphocytes 15.2 % (21.0-51.0); %Monocytes 12.6 % (0.0-10.0); %Neutrophils 69.4 % (42.0-75.0); Hematocrit 39.8 % (42.0-52.0); Hemoglobin 12.1 g/dL (14.0-18.0); Mean Corpuscular HGB CONC 30.4 g/dL (32.0-36.0); Mean Corpuscular Hemoglobin 28.7 pg (27.0-31.0); Mean Corpuscular Volume 94.3 fl (78.0-98.0); Mean Platelet Volume 9.3 fL (7.4-10.4); Platelet Count 189 10x3/uL (130-400); Red Blood Cell (RBC) Count 4.22 mill/uL (4.70-6.10); White Blood Cell (WBC) Count 6.6 10x3/uL (4.8-10.8)
[2023-10-10 08:31] LABS: Anion Gap 10 mmol/L (10-20); BUN (Urea Nitrogen) 18 mg/dL (8.4-25.7); Calc. Creatinine Clearance 42 mL/min (70-130); Calcium 8.7 mg/dL (7.8-10.44); Carbon Dioxide 32 mmol/L (23-31); Chloride 101 mmol/L (98-107); Estimated GFR 54; Glucose 113 mg/dL (83-110); Potassium 4.2 mmol/L (3.5-5.1); Sodium 139 mmol/L (136-145)
[2023-10-10] MEDS: Cholecalciferol 1,000 UNITS (25 MCG) TAB PO SCH (10:27)
[2023-10-10] MEDS: Furosemide 40 MG TAB PO SCH ×2 (10:27→21:49)
[2023-10-10] MEDS: Carvedilol 6.25 MG TAB PO SCH ×2 (10:27→18:11)
[2023-10-10] MEDS: Docusate 100 MG CAP PO SCH ×2 (10:27→21:47)
[2023-10-10] MEDS: DULoxetine 60 MG CAP PO SCH (10:27)
[2023-10-10] MEDS: Empagliflozin 10 MG TAB PO SCH (10:28)
[2023-10-10] MEDS: Gabapentin 300 MG CAP PO SCH ×2 (10:28→21:48)
[2023-10-10] MEDS: Folic Acid 1 MG TAB PO SCH (10:28)
[2023-10-10] MEDS: Morphine IR Tab 15 MG TAB PO SCH ×3 (10:29→21:47)
[2023-10-10] MEDS ORDERED: LevoFLOXacin 500 mg/D5W 500 MG in Premix 1 BAG IVPB SCH (14:00)
[2023-10-10] MEDS: LevoFLOXacin 250 mg/D5W 250 MG in Premix 1 BAG IVPB SCH (15:23)
[2023-10-10] MEDS: Atorvastatin Calcium 10 MG TAB PO SCH (21:47)
[2023-10-11] MEDS: Levothyroxine Sodium 88 MCG TAB PO SCH (06:41)
[2023-10-11] MEDS: D5 1/2 NS w/20 mEq KCL 1,000 ML IV SCH (06:41)
[2023-10-11] MEDS: Folic Acid 1 MG TAB PO SCH (09:41)
[2023-10-11] MEDS: Cholecalciferol 1,000 UNITS (25 MCG) TAB PO SCH (09:42)
[2023-10-11] MEDS: DULoxetine 60 MG CAP PO SCH (09:42)
[2023-10-11] MEDS: Carvedilol 6.25 MG TAB PO SCH ×2 (09:42→17:14)
[2023-10-11] MEDS: Furosemide 40 MG TAB PO SCH ×2 (09:42→21:05)
[2023-10-11] MEDS: Gabapentin 300 MG CAP PO SCH ×2 (09:42→21:02)
[2023-10-11] MEDS: Empagliflozin 10 MG TAB PO SCH (09:42)
[2023-10-11] MEDS: Docusate 100 MG CAP PO SCH ×2 (09:43→21:03)
[2023-10-11] MEDS: Morphine IR Tab 15 MG TAB PO SCH ×3 (09:43→21:01)
[2023-10-11] MEDS: LevoFLOXacin 250 mg/D5W 250 MG in Premix 1 BAG IVPB SCH (14:42)
[2023-10-11] MEDS: Diclofenac 1% 50 GM TOPICAL GEL TP SCH ×2 (14:43→21:01)
[2023-10-11] MEDS: Acetaminophen 325 MG TAB PO PRN ×2 (17:15→21:02)
[2023-10-11] MEDS: Atorvastatin Calcium 10 MG TAB PO SCH (21:01)
[2023-10-12] MEDS: Acetaminophen 325 MG TAB PO PRN (03:00)
[2023-10-12] MEDS: Levothyroxine Sodium 88 MCG TAB PO SCH (05:28)
[2023-10-12 05:44] LABS: #Eosinphils 0.1 thou/uL (0.0-0.7); #Monocytes 1.4 thou/uL (0.11-0.59); #Neutrophils 4.7 thou/uL (1.40-6.50); %Basophils 0.4 % (0.0-1.0); %Eosinophils 0.8 % (0.0-10.0); %Lymphocytes 15.5 % (21.0-51.0); %Monocytes 18.6 % (0.0-10.0); %Neutrophils 64.4 % (42.0-75.0); Hematocrit 40.9 % (42.0-52.0); Hemoglobin 12.7 g/dL (14.0-18.0); Mean Corpuscular HGB CONC 31.1 g/dL (32.0-36.0); Mean Corpuscular Hemoglobin 28.7 pg (27.0-31.0); Mean Corpuscular Volume 92.5 fl (78.0-98.0); Mean Platelet Volume 9.3 fL (7.4-10.4); Platelet Count 195 10x3/uL (130-400); RBC Distribution Width 13.8 % (11.5-14.5); Red Blood Cell (RBC) Count 4.42 mill/uL (4.70-6.10); White Blood Cell (WBC) Count 7.2 10x3/uL (4.8-10.8)
[2023-10-12 06:10] LABS: Anion Gap 13 mmol/L (10-20); BUN (Urea Nitrogen) 22 mg/dL (8.4-25.7); Calc. Creatinine Clearance 46 mL/min (70-130); Calcium 9.1 mg/dL (7.8-10.44); Carbon Dioxide 31 mmol/L (23-31); Chloride 97 mmol/L (98-107); Estimated GFR 61; Glucose 141 mg/dL (83-110); Potassium 4.5 mmol/L (3.5-5.1); Sodium 136 mmol/L (136-145)
[2023-10-12] MEDS: Furosemide 40 MG TAB PO SCH (09:19)
[2023-10-12] MEDS: Empagliflozin 10 MG TAB PO SCH (09:19)
[2023-10-12] MEDS: Carvedilol 6.25 MG TAB PO SCH (09:19)
[2023-10-12] MEDS: Docusate 100 MG CAP PO SCH (09:19)
[2023-10-12] MEDS: Cholecalciferol 1,000 UNITS (25 MCG) TAB PO SCH (09:20)
[2023-10-12] MEDS: Morphine IR Tab 15 MG TAB PO SCH ×2 (09:20→14:12)
[2023-10-12] MEDS: Gabapentin 300 MG CAP PO SCH (09:20)
[2023-10-12] MEDS: DULoxetine 60 MG CAP PO SCH (09:20)
[2023-10-12] MEDS: Diclofenac 1% 50 GM TOPICAL GEL TP SCH ×2 (09:21→14:12)
[2023-10-12] MEDS: Folic Acid 1 MG TAB PO SCH (09:28)
[2023-10-12 12:43] VITALS: BP 133/79; TEMP 98.5
[2023-10-12] MEDS: LevoFLOXacin 250 mg/D5W 250 MG in Premix 1 BAG IVPB SCH (14:12)
== END 2023-10-12 14:50 | disposition home or self-care (01) | DRG 669 ==
LOC: SDC 10:59 → SURG A 16:13
PROVIDERS: ADMIT Urology; ATTEND Family Medicine
PROC: 0T5B8ZZ Destruction of Bladder, Via Natural or Artificial Opening Endoscopic (ICD-10-PCS; principal; 2023-10-09)
PROC: 0TBB8ZX Excision of Bladder, Via Natural or Artificial Opening Endoscopic, Diagnostic (ICD-10-PCS; 2023-10-09)
DX: C67.9 Malignant neoplasm of bladder, unspecified (principal); I50.22 Chronic systolic (congestive) heart failure; R31.0 Gross hematuria; C61 Malignant neoplasm of prostate; I11.0 Hypertensive heart disease with heart failure; I25.10 Atherosclerotic heart disease of native coronary artery without angina pectoris; E78.5 Hyperlipidemia, unspecified; I87.2 Venous insufficiency (chronic) (peripheral); E03.9 Hypothyroidism, unspecified; G89.29 Other chronic pain; Z88.0 Allergy status to penicillin; Z98.890 Other specified postprocedural states; Z88.8 Allergy status to other drugs, medicaments and biological substances; Z95.810 Presence of automatic (implantable) cardiac defibrillator; Z79.82 Long term (current) use of aspirin; Z79.899 Other long term (current) drug therapy; Z90.49 Acquired absence of other specified parts of digestive tract; Z98.52 Vasectomy status; Z87.891 Personal history of nicotine dependence
CPT/HCPCS: 36415; 80048; 85025; 88305; J1956; J2001; J2405; J2704; J3010; J3480

== ENCOUNTER 2023-12-06 17:07 | Inpatient (IN) | payer MEDICARE ==
[2023-12-06 17:41] LABS: #Monocytes 1.9 thou/uL (0.11-0.59); #Neutrophils 7.4 thou/uL (1.40-6.50); %Basophils 0.2 % (0.0-1.0); %Eosinophils 0.1 % (0.0-10.0); %Lymphocytes 7.8 % (21.0-51.0); %Monocytes 18.6 % (0.0-10.0); %Neutrophils 72.8 % (42.0-75.0); Hematocrit 41.3 % (42.0-52.0); Hemoglobin 12.6 g/dL (14.0-18.0); Mean Corpuscular HGB CONC 30.5 g/dL (32.0-36.0); Mean Corpuscular Hemoglobin 27.8 pg (27.0-31.0); Mean Corpuscular Volume 91.2 fl (78.0-98.0); Platelet Count 190 10x3/uL (130-400); RBC Distribution Width 14.4 % (11.5-14.5); Red Blood Cell (RBC) Count 4.53 mill/uL (4.70-6.10); White Blood Cell (WBC) Count 10.2 10x3/uL (4.8-10.8)
[2023-12-06 18:05] LABS: ALT (SGPT) 94 U/L (8-55); AST (SGOT) 149 U/L (5-34); Albumin 3.1 g/dL (3.4-4.8); Alkaline Phosphatase 126 U/L (40-110); Anion Gap 11 mmol/L (10-20); BUN (Urea Nitrogen) 27 mg/dL (8.4-25.7); Bilirubin, Total 0.6 mg/dL (0.2-1.2); CK (CPK) 34 U/L (30-200); Calc. Creatinine Clearance 0 mL/min (70-130); Calcium 8.9 mg/dL (7.8-10.44); Carbon Dioxide 32 mmol/L (23-31); Chloride 98 mmol/L (98-107); Estimated GFR 44; Globulin 2.9 g/dL (2.4-3.5); Glucose 155 mg/dL (83-110); Lipase 11 U/L (8-78); Magnesium 2.2 mg/dL (1.6-2.6); Potassium 4.3 mmol/L (3.5-5.1); Sodium 137 mmol/L (136-145)
[2023-12-06] MEDS ORDERED: Vancomycin 1 GM/200 ML (FROZEN) BAG ONE (19:25)
[2023-12-06 19:39] LABS: SARS-CoV-2 NAA Rapid Test Not Detected (NotDetected)
[2023-12-06] MEDS ORDERED: Ondansetron ODT 4 MG TAB SL PRN (20:15)
[2023-12-06] MEDS ORDERED: Ondansetron PF 4 MG/2 ML Vial IVP PRN ×2 (20:15→21:12)
[2023-12-06] MEDS ORDERED: Acetaminophen 325 MG TAB PO PRN (20:15)
[2023-12-06 20:45] LABS: Lactic Acid 2.4 mmol/L (0.5-2.2)
[2023-12-06] MEDS ORDERED: Calcium Carbonate 500 MG ChewTAB PO PRN (21:12)
[2023-12-06] MEDS ORDERED: Ondansetron ODT 4 MG TAB PO PRN (21:12)
[2023-12-06] MEDS: Albumin 25% 25 GM (100 mL) BOT IVPB SCH (22:30)
[2023-12-06] MEDS: Aztreonam 1 GM in Sodium Chloride 0.9% 100 ML IVPB SCH (23:17)
[2023-12-06] MEDS ORDERED: Senokot S 8.6-50 MG TAB PO PRN (23:31)
[2023-12-07 06:14] LABS: Hematocrit 37.1 % (42.0-52.0); Hemoglobin 11.3 g/dL (14.0-18.0); Manual Diff?? YES; Mean Corpuscular HGB CONC 30.5 g/dL (32.0-36.0); Mean Corpuscular Hemoglobin 27.6 pg (27.0-31.0); Mean Corpuscular Volume 90.7 fl (78.0-98.0); Mean Platelet Volume 9.2 fL (7.4-10.4); Platelet Count 157 10x3/uL (130-400); RBC Distribution Width 14.6 % (11.5-14.5); Red Blood Cell (RBC) Count 4.09 mill/uL (4.70-6.10); White Blood Cell (WBC) Count 10.3 10x3/uL (4.8-10.8)
[2023-12-07 06:15] LABS: Delete Auto Diff?? YES
[2023-12-07 06:38] LABS: Band 41 % (5-11); CellaVision Operator ID LAB.CLH1; Hypochromia SLIGHT = 6-15 cells HPF (0-5); Lactic Acid 1.1 mmol/L (0.5-2.2); Lymphocytes 14 % (21-51); Metamyelocyte 1 % (0-0); Monocytes 12 % (0-10); Neutrophil 33 % (42-75); Platelet Adequacy Comment Platelets Normal; Polychromasia SLIGHT = 2-3 cells HPF (0-2); Total Cell Count 101
[2023-12-07 06:43] LABS: ALT (SGPT) 65 U/L (8-55); AST (SGOT) 70 U/L (5-34); Albumin 3.2 g/dL (3.4-4.8); Alkaline Phosphatase 99 U/L (40-110); Anion Gap 7 mmol/L (10-20); BUN (Urea Nitrogen) 27 mg/dL (8.4-25.7); Calc. Creatinine Clearance 47 mL/min (70-130); Calcium 9.3 mg/dL (7.8-10.44); Carbon Dioxide 35 mmol/L (23-31); Chloride 99 mmol/L (98-107); Estimated GFR 66; Globulin 2.4 g/dL (2.4-3.5); Glucose 94 mg/dL (83-110); Potassium 4.1 mmol/L (3.5-5.1); Protein, Total 5.6 g/dL (5.8-8.1); Sodium 137 mmol/L (136-145)
[2023-12-07] MEDS ORDERED: Carvedilol 6.25 MG TAB PO SCH (08:00)
[2023-12-07] MEDS: Carvedilol 6.25 MG TAB PO SCH (08:28)
[2023-12-07] MEDS: Polyethylene Glycol 3350 17 GM Packet PO SCH (08:28)
[2023-12-07] MEDS: Famotidine 20 MG TAB PO SCH (08:28)
[2023-12-07] MEDS: Doxycycline 100 MG in Sodium Chloride 0.9% 100 ML IVPB SCH (08:28)
[2023-12-07] MEDS: Empagliflozin 10 MG TAB PO SCH (08:28)
[2023-12-07] MEDS: Aztreonam 1 GM in Sodium Chloride 0.9% 100 ML IVPB SCH (08:43)
[2023-12-07] MEDS ORDERED: Furosemide 40 MG TAB PO SCH (09:00)
[2023-12-07] MEDS: LevoFLOXacin 500 mg/D5W 500 MG in Premix 1 BAG IVPB SCH (13:13)
[2023-12-07] MEDS: metroNIDAZOLE 500 MG in Premix 1 BAG IVPB SCH (13:14)
[2023-12-07] MEDS ORDERED: Aztreonam 2 GM in Sodium Chloride 0.9% 100 ML IVPB SCH (17:00)
[2023-12-07] MEDS ORDERED: Docusate 100 MG CAP PO PRN (19:17)
[2023-12-07 20:32] LABS: Bacteria/HPF None Seen HPF (None Seen); Bilirubin Negative (Negative); Blood, Urine Negative (Negative); CAUTI Indications for Culture Alt mental st,lethar; Clarity Clear (Clear); Glucose, Urine (Dipstick) Greater than 1000 mg/dL (Negative); Ketone, Urine Negative (Negative); Leukocyte Negative Leu/uL (Negative); Nitrite Negative (Negative); Protein, Urine (Dipstick) 20 mg/dL (Neg-Trace); Renal Epithelial 0-3 HPF (None Seen); Specific Gravity, Urine 1.014 (1.002-1.036); Squamous Epithelial None Seen HPF (0-3); Urobilinogen Normal mg/dL (Less than 2); pH, Urine 7.5 (5.0-9.0)
[2023-12-07 20:34] LABS: Urine Culture Reflex No No
[2023-12-07 20:44] LABS: Legionella Urinary Ag Negative (Negative); Strep pneumo Urine Ag NEGATIVE (NEGATIVE)
[2023-12-07] MEDS: Acetaminophen 325 MG TAB PO PRN (21:21)
[2023-12-07] MEDS: Potassium Chloride 10 MEQ TAB PO SCH (21:22)
[2023-12-07] MEDS: Aspirin Chewable 81 MG TAB PO SCH (21:22)
[2023-12-07] MEDS: Atorvastatin Calcium 10 MG TAB PO SCH (21:22)
[2023-12-07] MEDS: Gabapentin 300 MG CAP PO SCH (21:22)
[2023-12-08 04:32] LABS: #Eosinphils 0.1 thou/uL (0.0-0.7); #Monocytes 1.1 thou/uL (0.11-0.59); #Neutrophils 7.9 thou/uL (1.40-6.50); %Basophils 0.2 % (0.0-1.0); %Eosinophils 0.6 % (0.0-10.0); %Monocytes 10.5 % (0.0-10.0); %Neutrophils 76.1 % (42.0-75.0); Hematocrit 39.7 % (42.0-52.0); Hemoglobin 12.3 g/dL (14.0-18.0); Mean Corpuscular Hemoglobin 27.8 pg (27.0-31.0); Mean Corpuscular Volume 89.6 fl (78.0-98.0); Platelet Count 189 10x3/uL (130-400); RBC Distribution Width 14.2 % (11.5-14.5); Red Blood Cell (RBC) Count 4.43 mill/uL (4.70-6.10); White Blood Cell (WBC) Count 10.4 10x3/uL (4.8-10.8)
[2023-12-08 04:59] LABS: ALT (SGPT) 47 U/L (8-55); AST (SGOT) 38 U/L (5-34); Albumin 3.2 g/dL (3.4-4.8); Alkaline Phosphatase 101 U/L (40-110); Anion Gap 11 mmol/L (10-20); BUN (Urea Nitrogen) 23 mg/dL (8.4-25.7); Bilirubin, Total 0.6 mg/dL (0.2-1.2); Calc. Creatinine Clearance 55 mL/min (70-130); Calcium 9.6 mg/dL (7.8-10.44); Carbon Dioxide 30 mmol/L (23-31); Chloride 103 mmol/L (98-107); Estimated GFR 80; Globulin 2.9 g/dL (2.4-3.5); Glucose 94 mg/dL (83-110); Potassium 3.9 mmol/L (3.5-5.1); Protein, Total 6.1 g/dL (5.8-8.1); Sodium 140 mmol/L (136-145)
[2023-12-08] MEDS: Levothyroxine Sodium 88 MCG TAB PO SCH (05:17)
[2023-12-08] MEDS: DULoxetine 60 MG CAP PO SCH (08:40)
[2023-12-08] MEDS: Cholecalciferol 1,000 UNITS (25 MCG) TAB PO SCH (08:40)
[2023-12-08] MEDS: Folic Acid 1 MG TAB PO SCH (08:41)
[2023-12-08] MEDS: Mirabegron ER 25 MG ER.TAB PO SCH (08:41)
[2023-12-08] MEDS ORDERED: Loperamide HCl 2 MG CAP PO PRN (10:18)
[2023-12-08] MEDS: Morphine ER 15 MG TAB PO SCH (20:01)
[2023-12-09 03:59] LABS: #Eosinphils 0.1 thou/uL (0.0-0.7); #Monocytes 1.2 thou/uL (0.11-0.59); #Neutrophils 7.8 thou/uL (1.40-6.50); %Basophils 0.4 % (0.0-1.0); %Eosinophils 0.7 % (0.0-10.0); %Lymphocytes 12.8 % (21.0-51.0); %Monocytes 11.6 % (0.0-10.0); %Neutrophils 73.9 % (42.0-75.0); Hematocrit 40.9 % (42.0-52.0); Hemoglobin 12.7 g/dL (14.0-18.0); Mean Corpuscular HGB CONC 31.1 g/dL (32.0-36.0); Mean Corpuscular Hemoglobin 27.3 pg (27.0-31.0); Mean Corpuscular Volume 87.8 fl (78.0-98.0); Platelet Count 218 10x3/uL (130-400); RBC Distribution Width 14.3 % (11.5-14.5); Red Blood Cell (RBC) Count 4.66 mill/uL (4.70-6.10); White Blood Cell (WBC) Count 10.5 10x3/uL (4.8-10.8)
[2023-12-10 12:08] VITALS: BMI 21.9
[2023-12-10] MEDS: metroNIDAZOLE 500 MG TAB PO SCH (20:22)
[2023-12-11] MEDS: LevoFLOXacin 500 MG TAB PO SCH (06:05)
[2023-12-11 12:04] VITALS: TEMP 97.7
[2023-12-11 16:39] VITALS: BP 146/69
== END 2023-12-11 17:50 | disposition home health service (06) | DRG 871 ==
LOC: ERS 17:07 → ERHOLD 19:59 → IMCU/EMU 21:54
PROVIDERS: ADMIT Student in an Organized Health Care Education/Training Program; ATTEND Emergency Medicine
DX: A41.9 Sepsis, unspecified organism (principal); G93.41 Metabolic encephalopathy; J18.9 Pneumonia, unspecified organism; J96.01 Acute respiratory failure with hypoxia; E87.20 Acidosis, unspecified; I13.0 Hypertensive heart and chronic kidney disease with heart failure and stage 1 through stage 4 chronic kidney disease, or unspecified chronic kidney disease; I50.22 Chronic systolic (congestive) heart failure; E78.5 Hyperlipidemia, unspecified; R65.20 Severe sepsis without septic shock; I25.10 Atherosclerotic heart disease of native coronary artery without angina pectoris; K59.00 Constipation, unspecified; C67.9 Malignant neoplasm of bladder, unspecified; N20.0 Calculus of kidney; E86.0 Dehydration; N18.30 Chronic kidney disease, stage 3 unspecified; E03.9 Hypothyroidism, unspecified; R19.7 Diarrhea, unspecified; Z95.810 Presence of automatic (implantable) cardiac defibrillator; Z85.46 Personal history of malignant neoplasm of prostate; Z90.49 Acquired absence of other specified parts of digestive tract; Z98.890 Other specified postprocedural states; Z11.52 Encounter for screening for COVID-19; Z88.1 Allergy status to other antibiotic agents; Z88.8 Allergy status to other drugs, medicaments and biological substances; Z79.899 Other long term (current) drug therapy
CPT/HCPCS: 36415; 70450; 71045; 74176; 80053; 81001; 82550; 83605; 83690; 83735; 83880; 84145; 85025; 87040; 87449; 87899; 93005; 93306; 94760; 96374; 96375; 97139; J0457; J1956; J3370-JW; J3490; P9047

== ENCOUNTER 2024-04-04 12:25 | Inpatient (IN) | payer MEDICARE ==
[~2024-04-04 12:25] MED LIST: Iopamidol-370 76% 500 ML MDV (1 ML CHARGE) ONE
[2024-04-04 14:15] LABS: #Basophils 0.04 10x3/uL (0.0-0.2); %Basophils 0.5 % (0.0-1.0); %Eosinophils 1.7 % (0.0-10.0); %Lymphocytes 7.9 % (21.0-51.0); %Monocytes 7.6 % (0.0-10.0); %Neutrophils 81.8 % (42.0-75.0); Hematocrit 43.6 % (42.0-52.0); Hemoglobin 13.3 g/dL (14.0-18.0); Mean Corpuscular HGB CONC 30.5 g/dL (32.0-36.0); Mean Corpuscular Hemoglobin 26.7 pg (27.0-31.0); Mean Corpuscular Volume 87.4 fL (78.0-98.0); Mean Platelet Volume 8.7 fL (7.4-10.4); Platelet Count 206 10x3/uL (130-400); RBC Distribution Width 15.3 % (11.5-14.5); Red Blood Cell (RBC) Count 4.99 mill/uL (4.70-6.10)
[2024-04-04 14:35] LABS: Bacteria/HPF None Seen HPF (None Seen); Bilirubin Negative (Negative); Blood, Urine 1+ (Negative); CAUTI Indications for Culture Alt mental st,lethar; Clarity Clear (Clear); Glucose, Urine (Dipstick) 500 mg/dL (Negative); Ketone, Urine Trace mg/dL (Negative); Leukocyte Negative Leu/uL (Negative); Nitrite Negative (Negative); Protein, Urine (Dipstick) Negative (Neg-Trace); Specific Gravity, Urine 1.009 (1.002-1.036); Squamous Epithelial 0-3 HPF (0-3); Urobilinogen Normal mg/dL (Less than 2); WBC/HPF 0-3 HPF (0-3); pH, Urine 7.5 (5.0-9.0)
[2024-04-04 14:38] LABS: Urine Culture Reflex No No
[2024-04-04 14:40] LABS: Lipase 11 U/L (8-78)
[2024-04-04 14:43] LABS: Acetaminophen Less than 10 mcg/mL (10.0-30.0); Alcohol Less than 10.0 mg/dL (Less than 10); Salicylate Less than 8.0 mg/dL (15.0-30.0)
[2024-04-04 14:44] LABS: ALT (SGPT) 14 U/L (8-55); AST (SGOT) 26 U/L (5-34); Albumin 2.8 g/dL (3.4-4.8); Alkaline Phosphatase 86 U/L (40-110); Anion Gap 13 mmol/L (10-20); BUN (Urea Nitrogen) 16 mg/dL (8.4-25.7); Bilirubin, Total 0.5 mg/dL (0.2-1.2); Calc. Creatinine Clearance 0 mL/min (70-130); Calcium 9.2 mg/dL (7.8-10.44); Carbon Dioxide 28 mmol/L (23-31); Chloride 103 mmol/L (98-107); Estimated GFR 86; Globulin 3.7 g/dL (2.4-3.5); Glucose 91 mg/dL (83-110); Potassium 3.7 mmol/L (3.5-5.1); Protein, Total 6.5 g/dL (5.8-8.1); Sodium 140 mmol/L (136-145)
[2024-04-04 14:46] LABS: Amphetamine Not Detected (NotDetected); Barbiturates Screen Not Detected (NotDetected); Benzodiazepine Screen Not Detected (NotDetected); Cocaine Metabolite Screen Not Detected (NotDetected); Methadone Not Detected (NotDetected); Methamphetamine Not Detected (NotDetected); Opiate Screen Detected (NotDetected); Oxycodone Screen Not Detected (NotDetected); Phencyclidine (PCP) Not Detected (NotDetected); THC/Cannabinoid Screen Not Detected (NotDetected); Tricyclic Screen Not Detected (NotDetected)
[2024-04-04 17:24] LABS: Actual Bicarbonate (HCO3v) 29.9 mEq/L (22-28); Base Excess 2.9 mEq/L (-2.0 to +3.0); Calcium, Ionized (venous) 1.12 mmol/L (1.16-1.32); Chloride (VBG) 99 mmol/L (98-106); Hematocrit-VBG 44 % (42.0-52.0); Hemoglobin (Hb) 14.8 g/dL (12.6-17.4); Potassium (VBG) 3.76 mmol/L (3.70-5.30); Sodium 141 mmol/L (133-146); pH (venous) 7.349 (7.32-7.43)
[2024-04-04] MEDS ORDERED: Vancomycin 1 GM/200 ML (FROZEN) BAG ONE (18:34)
[2024-04-04] MEDS ORDERED: CEFAZOLIN 1 GM VIAL ONE (19:13)
[2024-04-04] MEDS ORDERED: Sodium Chloride 0.9% 100 ML ONE (19:13)
[2024-04-04 22:36] VITALS: BMI 22.6
[2024-04-05] MEDS: Potassium Chloride 20 MEQ in Lactated Ringer's 1,000 ML IV SCH (00:24)
[2024-04-05] MEDS ORDERED: Fioricet 325/50/40 mg Tablet PO PRN (01:39)
[2024-04-05] MEDS ORDERED: Acetaminophen 650 MG Suppository PR PRN (01:43)
[2024-04-05] MEDS ORDERED: Ondansetron ODT 4 MG TAB PO PRN (01:43)
[2024-04-05] MEDS ORDERED: Ondansetron PF 4 MG/2 ML Vial IVP PRN (01:43)
[2024-04-05] MEDS ORDERED: MORPHINE SULFATE 15 MG PO SCH (01:45)
[2024-04-05] MEDS ORDERED: Vancomycin 1 GM in Premix 1 BAG IVPB SCH (02:00)
[2024-04-05] MEDS: LevoFLOXacin 750 mg/D5W 750 MG in Premix 1 BAG IVPB SCH (02:10)
[2024-04-05] MEDS: Vancomycin 1 GM in Premix 1 BAG IVPB SCH ×2 (03:49→13:44)
[2024-04-05] MEDS: Acetaminophen 325 MG TAB PO PRN (03:54)
[2024-04-05 05:26] LABS: Lactic Acid 1.2 mmol/L (0.5-2.2)
[2024-04-05 05:38] LABS: ALT (SGPT) 14 U/L (8-55); AST (SGOT) 41 U/L (5-34); Albumin 2.2 g/dL (3.4-4.8); Alkaline Phosphatase 70 U/L (40-110); Anion Gap 9 mmol/L (10-20); BUN (Urea Nitrogen) 13 mg/dL (8.4-25.7); Bilirubin, Total 0.5 mg/dL (0.2-1.2); Calc. Creatinine Clearance 70 mL/min (70-130); Calcium 8.6 mg/dL (7.8-10.44); Carbon Dioxide 27 mmol/L (23-31); Chloride 106 mmol/L (98-107); Estimated GFR 87; Globulin 3.3 g/dL (2.4-3.5); Glucose 122 mg/dL (83-110); Potassium 3.3 mmol/L (3.5-5.1); Protein, Total 5.5 g/dL (5.8-8.1); Sodium 139 mmol/L (136-145)
[2024-04-05 05:47] LABS: #Basophils 0.03 10x3/uL (0.0-0.2); %Basophils 0.3 % (0.0-1.0); %Eosinophils 0.5 % (0.0-10.0); %Lymphocytes 12.7 % (21.0-51.0); %Monocytes 12.8 % (0.0-10.0); %Neutrophils 73.1 % (42.0-75.0); Hematocrit 38.3 % (42.0-52.0); Hemoglobin 11.7 g/dL (14.0-18.0); Mean Corpuscular HGB CONC 30.5 g/dL (32.0-36.0); Mean Corpuscular Hemoglobin 26.7 pg (27.0-31.0); Mean Corpuscular Volume 87.2 fL (78.0-98.0); Mean Platelet Volume 8.8 fL (7.4-10.4); Platelet Count 199 10x3/uL (130-400); RBC Distribution Width 15.4 % (11.5-14.5); Red Blood Cell (RBC) Count 4.39 mill/uL (4.70-6.10)
[2024-04-05] MEDS: Levothyroxine Sodium 88 MCG TAB PO SCH (06:04)
[2024-04-05] MEDS: Carvedilol 6.25 MG TAB PO SCH (08:47)
[2024-04-05] MEDS: Gabapentin 300 MG CAP PO SCH (08:47)
[2024-04-05] MEDS: Famotidine 20 MG TAB PO SCH (08:48)
[2024-04-05] MEDS: Acetaminophen 325 MG TAB PO SCH (08:48)
[2024-04-05] MEDS: Furosemide 40 MG TAB PO SCH (08:48)
[2024-04-05] MEDS: Folic Acid 1 MG TAB PO SCH (08:49)
[2024-04-05] MEDS: Empagliflozin 10 MG TAB PO SCH (08:49)
[2024-04-05] MEDS: DULoxetine 60 MG CAP PO SCH (08:49)
[2024-04-05] MEDS: Cholecalciferol 1,000 UNITS (25 MCG) TAB PO SCH (08:49)
[2024-04-05] MEDS: Famotidine/PF 20 mg/2ml Vial SLOW IVP SCH (08:53)
[2024-04-05] MEDS ORDERED: Vancomycin (BATCH) 1.5 GM in Premix 1 BAG IVPB SCH (09:00)
[2024-04-05 10:34] VITALS: BMI 22.6
[2024-04-05] MEDS ORDERED: Electrolyte Replacement Protocol 1 EACH FS SCH (10:45)
[2024-04-05] MEDS: Potassium Chloride 20 MEQ TAB PO SCH (11:18)
[2024-04-05] MEDS ORDERED: Vancomycin HCl 750 MG in Sodium Chloride 0.9% 250 ML 250 ML IVPB SCH (14:00)
[2024-04-05] MEDS: Multivitamin W/ Minerals 1 TAB PO SCH (15:00)
[2024-04-05] MEDS: Atorvastatin Calcium 10 MG TAB PO SCH (21:05)
[2024-04-06 07:07] LABS: Vancomycin, Random 18.2 ug/mL (See Comment)
[2024-04-06 09:57] LABS: #Basophils 0.04 10x3/uL (0.0-0.2); %Basophils 0.5 % (0.0-1.0); %Eosinophils 0.9 % (0.0-10.0); %Lymphocytes 11.1 % (21.0-51.0); %Monocytes 14.4 % (0.0-10.0); %Neutrophils 72.8 % (42.0-75.0); Hemoglobin 12.3 g/dL (14.0-18.0); Mean Corpuscular HGB CONC 30.8 g/dL (32.0-36.0); Mean Corpuscular Hemoglobin 26.3 pg (27.0-31.0); Mean Corpuscular Volume 85.5 fL (78.0-98.0); Mean Platelet Volume 8.9 fL (7.4-10.4); Platelet Count 228 10x3/uL (130-400); RBC Distribution Width 15.4 % (11.5-14.5); Red Blood Cell (RBC) Count 4.68 mill/uL (4.70-6.10)
[2024-04-06 10:22] LABS: ALT (SGPT) 17 U/L (8-55); AST (SGOT) 32 U/L (5-34); Albumin 2.2 g/dL (3.4-4.8); Alkaline Phosphatase 71 U/L (40-110); Anion Gap 17 mmol/L (10-20); BUN (Urea Nitrogen) 17 mg/dL (8.4-25.7); Bilirubin, Total 0.4 mg/dL (0.2-1.2); Calc. Creatinine Clearance 60 mL/min (70-130); Calcium 8.8 mg/dL (7.8-10.44); Carbon Dioxide 28 mmol/L (23-31); Chloride 100 mmol/L (98-107); Estimated GFR 83; Globulin 3.6 g/dL (2.4-3.5); Glucose 152 mg/dL (83-110); Potassium 3.3 mmol/L (3.5-5.1); Protein, Total 5.8 g/dL (5.8-8.1); Sodium 142 mmol/L (136-145)
[2024-04-06] MEDS ORDERED: Ipratropium/Albuterol 3 ML NEB NEB PRN (10:58)
[2024-04-06] MEDS: Potassium Chloride 20 MEQ TAB PO SCH (11:25)
[2024-04-06] MEDS: Morphine 2 MG/ML VIAL SLOW IVP PRN (11:25)
[2024-04-06] MEDS: predniSONE 20 MG TAB PO SCH (11:58)
[2024-04-06] MEDS: Furosemide 20 MG (2 mL) VIAL SLOW IVP SCH (14:35)
[2024-04-07 06:24] LABS: #Basophils 0.03 10x3/uL (0.0-0.2); #Eosinphils Less than 0.03 10x3/uL (0.0-0.7); %Basophils 0.4 % (0.0-1.0); %Eosinophils 0.1 % (0.0-10.0); %Lymphocytes 13.5 % (21.0-51.0); %Monocytes 14.7 % (0.0-10.0); %Neutrophils 70.8 % (42.0-75.0); Hematocrit 41.8 % (42.0-52.0); Hemoglobin 12.8 g/dL (14.0-18.0); Mean Corpuscular HGB CONC 30.6 g/dL (32.0-36.0); Mean Corpuscular Hemoglobin 26.3 pg (27.0-31.0); Platelet Count 276 10x3/uL (130-400); RBC Distribution Width 15.1 % (11.5-14.5); Red Blood Cell (RBC) Count 4.86 mill/uL (4.70-6.10)
[2024-04-07 06:55] LABS: ALT (SGPT) 19 U/L (8-55); AST (SGOT) 29 U/L (5-34); Albumin 2.5 g/dL (3.4-4.8); Alkaline Phosphatase 71 U/L (40-110); Anion Gap 16 mmol/L (10-20); BUN (Urea Nitrogen) 23 mg/dL (8.4-25.7); Bilirubin, Total 0.4 mg/dL (0.2-1.2); Calc. Creatinine Clearance 58 mL/min (70-130); Calcium 9.2 mg/dL (7.8-10.44); Carbon Dioxide 29 mmol/L (23-31); Chloride 100 mmol/L (98-107); Estimated GFR 82; Globulin 3.9 g/dL (2.4-3.5); Glucose 109 mg/dL (83-110); Potassium 3.6 mmol/L (3.5-5.1); Protein, Total 6.4 g/dL (5.8-8.1); Sodium 141 mmol/L (136-145)
[2024-04-07] MEDS: predniSONE 20 MG TAB PO SCH (09:22)
[2024-04-08 04:47] LABS: #Basophils 0.03 10x3/uL (0.0-0.2); #Eosinphils Less than 0.03 10x3/uL (0.0-0.7); %Basophils 0.4 % (0.0-1.0); %Eosinophils 0.3 % (0.0-10.0); %Lymphocytes 21.1 % (21.0-51.0); %Monocytes 15.6 % (0.0-10.0); %Neutrophils 62.3 % (42.0-75.0); Hemoglobin 13.7 g/dL (14.0-18.0); Mean Corpuscular HGB CONC 30.4 g/dL (32.0-36.0); Mean Corpuscular Hemoglobin 26.1 pg (27.0-31.0); Mean Corpuscular Volume 85.7 fL (78.0-98.0); Mean Platelet Volume 8.7 fL (7.4-10.4); Platelet Count 286 10x3/uL (130-400); RBC Distribution Width 14.9 % (11.5-14.5); Red Blood Cell (RBC) Count 5.25 mill/uL (4.70-6.10)
[2024-04-08 05:35] LABS: ALT (SGPT) 18 U/L (8-55); AST (SGOT) 32 U/L (5-34); Albumin 2.6 g/dL (3.4-4.8); Alkaline Phosphatase 74 U/L (40-110); Anion Gap 13 mmol/L (10-20); BUN (Urea Nitrogen) 37 mg/dL (8.4-25.7); Bilirubin, Total 0.3 mg/dL (0.2-1.2); Calc. Creatinine Clearance 42 mL/min (70-130); Calcium 9.6 mg/dL (7.8-10.44); Carbon Dioxide 32 mmol/L (23-31); Chloride 99 mmol/L (98-107); Estimated GFR 58; Globulin 4.1 g/dL (2.4-3.5); Glucose 95 mg/dL (83-110); Potassium 4.8 mmol/L (3.5-5.1); Protein, Total 6.7 g/dL (5.8-8.1); Sodium 139 mmol/L (136-145)
[2024-04-08 12:36] VITALS: TEMP 98.7
[2024-04-08 12:37] VITALS: BP 87/51
[2024-04-08] MEDS: HYDROcodone/Acetaminophen 5/325 mg Tablet PO PRN (12:47)
[2024-04-09] MEDS ORDERED: Famotidine 20 MG TAB PO SCH (09:00)
== END 2024-04-08 16:39 | disposition home or self-care (01) | DRG 871 ==
LOC: ERS 12:25 → 2NO 21:01 → OBSVTOIN 04-06 12:13
PROVIDERS: ADMIT Internal Medicine; ATTEND Hospitalist
PROC: 4A0D7BZ Measurement of Urinary Pressure, Via Natural or Artificial Opening (ICD-10-PCS; principal; 2024-04-05)
DX: A41.9 Sepsis, unspecified organism (principal); G93.41 Metabolic encephalopathy; J96.21 Acute and chronic respiratory failure with hypoxia; L89.103 Pressure ulcer of unspecified part of back, stage 3; I13.0 Hypertensive heart and chronic kidney disease with heart failure and stage 1 through stage 4 chronic kidney disease, or unspecified chronic kidney disease; I50.32 Chronic diastolic (congestive) heart failure; L89.152 Pressure ulcer of sacral region, stage 2; E78.5 Hyperlipidemia, unspecified; I25.10 Atherosclerotic heart disease of native coronary artery without angina pectoris; N18.30 Chronic kidney disease, stage 3 unspecified; C61 Malignant neoplasm of prostate; Z88.0 Allergy status to penicillin; Z95.810 Presence of automatic (implantable) cardiac defibrillator; Z90.49 Acquired absence of other specified parts of digestive tract; Z79.899 Other long term (current) drug therapy
CPT/HCPCS: 36415; 36416; 51701; 51798; 70450; 71045; 71275; 74177; 80053; 80202; 80306; 80307; 81001; 82140; 82805; 83605; 83690; 83880; 84443; 85025; 87040; 93005; 93306; 93970; 96361; 96365; 96367; 96374; 96375; 96376; 97139; G0378; J0690; J1940; J1956; J2272; J3370-JW; J3480; J3490; J7120; J7512; Q9967; S0028